=== PATIENT | female | born 1945 | race Caucasian/White ===

== ENCOUNTER 2023-05-20 10:13 | Outpatient (RCR) | payer MEDICARE, OTHER, SELFPAY | END 2023-05-20 23:59 | disposition home or self-care (01) | LOC: RPT 10:13 | PROVIDERS: ATTENDING PHYSICIAN Anesthesiology; FAMILY PHYSICIAN Internal Medicine | DX: M54.51 Vertebrogenic low back pain (principal); G89.4 Chronic pain syndrome; M79.12 Myalgia of auxiliary muscles, head and neck | CPT/HCPCS: 97110; 97112; 97140; 97163 ==

== ENCOUNTER 2023-06-17 10:14 | Outpatient (RCR) | payer MEDICARE, OTHER, SELFPAY | END 2023-06-17 23:59 | disposition home or self-care (01) | LOC: RPT 10:14 | PROVIDERS: ATTENDING PHYSICIAN Anesthesiology; FAMILY PHYSICIAN Internal Medicine | DX: M54.51 Vertebrogenic low back pain (principal); G89.4 Chronic pain syndrome; M79.12 Myalgia of auxiliary muscles, head and neck; Z73.6 Limitation of activities due to disability; Z85.79 Personal history of other malignant neoplasms of lymphoid, hematopoietic and related tissues | CPT/HCPCS: 97110; 97112; 97116; 97140; 97530 ==

== ENCOUNTER 2023-07-18 09:45 | Outpatient (RCR) | payer MEDICARE, OTHER, SELFPAY | END 2023-07-18 23:59 | disposition home or self-care (01) | LOC: RPT 09:45 | PROVIDERS: ATTENDING PHYSICIAN Anesthesiology; FAMILY PHYSICIAN Internal Medicine | DX: M54.51 Vertebrogenic low back pain (principal); M79.12 Myalgia of auxiliary muscles, head and neck; Z73.6 Limitation of activities due to disability; R26.2 Difficulty in walking, not elsewhere classified; M62.81 Muscle weakness (generalized); G89.4 Chronic pain syndrome | CPT/HCPCS: 97110; 97112; 97116; 97530 ==

== ENCOUNTER → 2023-07-28 06:29 | Day surgery (SDC) | payer MEDICARE, OTHER, SELFPAY | LOC: GI 06:29 | PROVIDERS: ATTENDING PHYSICIAN Internal Medicine Gastroenterology | DX: D12.2 Benign neoplasm of ascending colon (principal); K57.30 Diverticulosis of large intestine without perforation or abscess without bleeding; K64.8 Other hemorrhoids; K64.4 Residual hemorrhoidal skin tags; R19.5 Other fecal abnormalities; Q39.9 Congenital malformation of esophagus, unspecified; K44.9 Diaphragmatic hernia without obstruction or gangrene; K31.7 Polyp of stomach and duodenum; K31.89 Other diseases of stomach and duodenum; R12 Heartburn | CPT/HCPCS: 45385; 43239; 88305 ==

== ENCOUNTER 2023-08-05 09:45 | Outpatient (RCR) | payer MEDICARE, OTHER, SELFPAY | END 2023-08-05 23:59 | disposition home or self-care (01) | LOC: RPT 09:45 | PROVIDERS: ATTENDING PHYSICIAN Anesthesiology; FAMILY PHYSICIAN Internal Medicine | DX: M54.51 Vertebrogenic low back pain (principal); G89.4 Chronic pain syndrome; M79.12 Myalgia of auxiliary muscles, head and neck; Z73.6 Limitation of activities due to disability | CPT/HCPCS: 97010; 97110; 97530 ==

== ENCOUNTER → 2023-09-22 11:13 | Outpatient (REF) | payer MEDICARE, OTHER, SELFPAY ==
[2023-09-22 12:02] LABS: % Basophils 0.3 % (0-2); % Eosinophils 2.2 % (0-6); % Immature Granulocytes 0.3 % (0-0.5); % Lymphocytes 15.5 % (20.5-51.1); % Monocytes 10.6 % (1.7-9.3); % Neutrophils 71.1 % (42.2-75.2); Absolute Eosinophils 0.2 10^3/uL (0-0.7); Absolute Monocytes 0.7 10^3/uL (0.1-0.6); Absolute Neutrophils 4.8 10^3/uL (1.4-6.5); Hematocrit 37.3 % (37.0-47.0); Mean Corp Hgb Conc. 32.2 g/dL (33.0-37.0); Mean Corpuscular Hgb 30.5 pg (27.0-31.0); Mean Corpuscular Volume 94.9 fL (81.0-99.0); Mean Platelet Volume 9.9 fL (7.4-10.4); Nucleated Red Blood Cells % 0 %; Platelet Count 183 10^3/uL (130-400); Red Blood Cell Count 3.93 10^6/uL (4.20-5.40); Red Cell Dist. Width 17.4 % (11.5-14.5); White Blood Cell Count 6.7 10^3/uL (4.8-10.8)
[2023-09-22 12:55] LABS: ALT (SGPT) 16 U/L (0-35); AST (SGOT) 21 U/L (14-36); Albumin 4.3 g/dl (3.5-5.0); Alkaline Phosphatase 80 U/L (38-126); Blood Urea Nitrogen 12 mg/dl (7-17); Calcium 11.2 mg/dl (8.4-10.2); Carbon Dioxide 28 mmol/L (22-30); Chloride 102 mmol/L (98-107); Glucose 89 mg/dl (70-99); HDL Cholesterol 85 mg/dl; LDL Cholesterol, Calculated 78 mg/dl; Potassium 3.7 mmol/L (3.5-5.1); Sodium 140 mmol/L (135-145); Total Bilirubin 1.2 mg/dl (0.2-1.3); Total Cholesterol 201 mg/dl (50-199); Triglyceride 192 mg/dl (10-149); Very Low Density Lipoprotein 38 mg/dl (0-30); eGFR 57.66
[2023-09-22 13:44] LABS: Free T4 1.31 ng/dl (0.78-2.19)
== END ==
LOC: REG 11:13
PROVIDERS: ATTENDING PHYSICIAN Internal Medicine; FAMILY PHYSICIAN Internal Medicine; REFERRING PHYSICIAN Internal Medicine
DX: I10 Essential (primary) hypertension (principal); I48.0 Paroxysmal atrial fibrillation; C90.00 Multiple myeloma not having achieved remission; N18.31 Chronic kidney disease, stage 3a; I12.9 Hypertensive chronic kidney disease with stage 1 through stage 4 chronic kidney disease, or unspecified chronic kidney disease; D68.59 Other primary thrombophilia; E78.5 Hyperlipidemia, unspecified; E03.9 Hypothyroidism, unspecified; Z79.01 Long term (current) use of anticoagulants
CPT/HCPCS: 36415; 80053; 80061; 84439; 84443; 85025

== ENCOUNTER 2024-02-08 10:10 | Inpatient (IN) | payer MEDICARE, OTHER, SELFPAY ==
[2024-02-08] VITALS (14 sets, daily range): BP systolic 116–170; BP diastolic 69–118; BMI 36.7
[2024-02-08 07:03] LABS: Urine Albumin Negative (Neg - Trace); Urine Bilirubin Negative (Negative); Urine Character Clear (Clear); Urine Color Yellow; Urine Glucose Negative (Negative); Urine Ketone Negative (Negative); Urine Leukocyte Negative (Negative); Urine Nitrite Negative (Negative); Urine Occult Blood Negative (Negative); Urine Urobilinogen Negative (Neg - 1+)
[2024-02-08 07:10] LABS: % Basophils 0.5 % (0-2); % Eosinophils 0.5 % (0-6); % Immature Granulocytes 0.7 % (0-0.5); % Lymphocytes 8.3 % (20.5-51.1); % Monocytes 17.6 % (1.7-9.3); % Neutrophils 72.4 % (42.2-75.2); Absolute Lymphocytes 0.5 10^3/uL (1.2-3.4); Absolute Neutrophils 4.2 10^3/uL (1.4-6.5); Hematocrit 29.9 % (37.0-47.0); Hemoglobin 10.1 g/dL (12.0-16.0); Mean Corp Hgb Conc. 33.8 g/dL (33.0-37.0); Mean Corpuscular Hgb 31.4 pg (27.0-31.0); Mean Corpuscular Volume 92.9 fL (81.0-99.0); Mean Platelet Volume 11.2 fL (7.4-10.4); Nucleated Red Blood Cells % 0 %; Platelet Count 137 10^3/uL (130-400); Red Blood Cell Count 3.22 10^6/uL (4.20-5.40); Red Cell Dist. Width 17.1 % (11.5-14.5); White Blood Cell Count 5.8 10^3/uL (4.8-10.8)
[2024-02-08 07:15] LABS: ALT (SGPT) 27 U/L (0-35); AST (SGOT) 26 U/L (14-36); Albumin 3.5 g/dl (3.5-5.0); Alkaline Phosphatase 87 U/L (38-126); Blood Urea Nitrogen 26 mg/dl (7-17); Calcium 9.6 mg/dl (8.4-10.2); Carbon Dioxide 25 mmol/L (22-30); Chloride 101 mmol/L (98-107); Estimated Creatinine Clearance 37 ml/min; Glucose 102 mg/dl (70-99); Potassium 3.4 mmol/L (3.5-5.1); Sodium 139 mmol/L (135-145); Total Bilirubin 1.3 mg/dl (0.2-1.3); Total Protein 5.9 g/dl (6.3-8.2); eGFR 51.11
[2024-02-08] MEDS: NSS 1000 IV (07:22)
--- NOTE | 2024-02-08 07:42 | ED.GENMED ---
History of Present Illness
General
Chief Complaint: Weakness
Time Seen by Provider: 02/08/24 06:40
History of Present Illness
History of Present Illness:
78-year-old female with history of A-fib on Eliquis and diltiazem, hypertension, hyperlipidemia presenting to the emergency department for acute confusion and fall. Patient arrives with and daughter. Notes that patient had a fall yesterday
morning, they had difficulty her back in bed. Prior to arrival, patient was found on the ground in her bedroom, unclear how she got there. Patient is a very limited historian, and is disoriented. Family notes that this is not her typical
behavior. No reported recent fever or illness. They do note that she got injections in her back on 01/27, however has had no issues since. Reports history of chronic back pain, for which she is on palliative care. They note that patient had a
very similar presentation in August 2023 while they were vacationing in [facility]. Patient was admitted to the hospital with dehydration, went into A-fib. No additional history obtained at this time.
Past History
Past History
ED Past Medical History: Cancer, HTN and Hypercholesterolemia
ED Past Surgical History: Orthopedic
Social History
Tobacco: Non-smoker
Alcohol: Occasional
Drug: None
Personal:
Living: with family
Employment: Retired
Family History
Family History: Other
Phy Exam
Physical Exam
Physical Exam:
General: Well-appearing, no clinical signs of dehydration, nontoxic and in no acute distress
HEENT: protecting airway
Neck: appears supple
CV: Normal heart rate, regular rhythm
Resp: No accessory muscle use, no increased work of breathing, lungs clear to auscultation bilaterally
Abd: Soft and non-distended, no tenderness to palpation
Extremities: No deformities, no swelling, no erythema
Neuro: alert, tremulous, disoriented to place and time
: deferred
Rectal: deferred
Psych: Normal affect
Skin: Intact
Course
Orders/Labs/Results
Orders:
Orders
02/08/24 06:22
Electrocardiogram (*1) Urgent
Reason for Study: Fatigue / Weakness
EKG- Treatment ONCE
02/08/24 06:23
Complete Blood Count/With Diff Urgent
Comprehensive Metabolic Panel Urgent
02/08/24 06:41
UA Reflex to Culture [Urinalysis Reflex To Culture] Urgent
Date Specimen was Collected: 02/08/24
Time Specimen was Collected: 06:22
02/08/24 06:57
CT Head W/o Iv Contrast Urgent
Comment:
Reason For Exam: fall, unwitnessed on eliquis
0.9% Sodium Chloride 1000 ml [Nss] 1,000 ml IV BOLUS
02/08/24 07:41
Diltiazem HCl [Cardizem] 15 mg IV NOW STA
Abnormal Lab Results
02/08/24
06:23
RBC 3.22 L 10^6/uL
(4.20-5.40)
Hgb 10.1 L g/dL
(12.0-16.0)
Hct 29.9 L %
(37.0-47.0)
MCH 31.4 H pg
(27.0-31.0)
RDW 17.1 H %
(11.5-14.5)
MPV 11.2 H fL
(7.4-10.4)
Absolute Lymphs (auto) 0.5 L 10^3/uL
(1.2-3.4)
Absolute Monos (auto) 1.0 H 10^3/uL
(0.1-0.6)
Immature Gran % 0.7 H %
(0-0.5)
Lymphocytes % 8.3 L %
(20.5-51.1)
Monocytes % 17.6 H %
(1.7-9.3)
Potassium 3.4 L mmol/L
(3.5-5.1)
BUN 26 H mg/dl
(7-17)
Creatinine 1.1 H mg/dL
(0.6-1.0)
Glucose 102 H mg/dl
(70-99)
Total Protein 5.9 L g/dl
(6.3-8.2)
02/08/24 06:23
02/08/24 06:23
Vital Signs
Initial and Last Documented VS:
Initial Vital Signs
Temp Pulse Resp BP Pulse Ox
98.6 F 86 18 141/94 96
02/08/24 06:15 02/08/24 06:15 02/08/24 06:15 02/08/24 06:15 02/08/24 06:15
Last Documented Vital Signs
Temp Pulse Resp BP Pulse Ox
98.6 F 140 27 116/90 94
02/08/24 06:15 02/08/24 07:26 02/08/24 07:26 02/08/24 07:26 02/08/24 07:26
MDM/Problems Addressed
MDM/Problems Addressed:
78-year-old female with history of A-fib on Eliquis and multiple myeloma presenting for change in mental status and fall. Vital signs on arrival are normal.
On exam, patient is well-appearing, no acute distress, however does appear disoriented and confused. Family not immediately at the bedside on her arrival, however when they did arrive, notes this is a significant change from her baseline. She does
have some mild confusion at baseline, however not to the. They report very similar symptoms in August after concern of dehydration. Patient's lips are very dry, indicating possible dehydration component. Plan for laboratory analysis, urinalysis in
the setting of possible UTI. Will start patient on IV fluids. Given fall of unclear etiology, will obtain CT brain.
08:00 - Patient's labs are relatively unremarkable, urine without sign of infection. Patient is now in rapid A-fib. She is on diltiazem. Will administer IV diltiazem for rate control. CT without acute traumatic injury, however does note
increasing white matter disease from prior, reporting PML as a diagnostic consideration. Will continue to consider infectious pathology. She is currently afebrile, I do not feel she requires LP at this time. However, patient will require
admission given her acute confusion. Plan for admission
*EKG
Interpreted by ED Provider?: Yes
EKG Intrepretation Date: 02/08/24
EKG Intrepretation Time: 07:51
Interpretation: normal
Heart Rate: 84
Rate: normal
Rhythm: sinus
[place]: normal axis
Interval: normal interval
QRS Pattern: normal QRS
Ischemia: no ischemia
*Critical Care Note
Total Time (30-74mins, 75-104mins- exclusive of procedures): Not Applicable
ED Attending Note
-
Portions of this chart may have been created with voice recognition software.� Occasional wrong word or��sound alike� substitutions may have occurred due to the inherent limitations of voice recognition software.
Discharge Plan
Departure
Prescriptions:
No Action
rosuvastatin [Crestor] 10 MG tablet
5 mg PO DAILY
labetalol 200 MG tablet
200 mg PO BID
omeprazole 20 MG tablet,delayed release (DR/EC)
20 mg PO Daily
Eliquis 5 MG tablet
5 mg PO BID
loperamide 2 mg Capsule
4 mg PO Q8H PRN (Reason: diarrhea)
sulfamethoxazole-trimethoprim [Bactrim] 400-80 mg Tablet
1 tab PO DAILY
venlafaxine 25 mg Tablet
50 mg PO BID
diltiazem HCl 120 mg Tablet
120 mg PO DAILY
cholestyramine (with sugar) [Questran] 4 gram Powder
4 g PO BID
tizanidine 2 mg Capsule
2 mg PO BID PRN (Reason: .as directed)
pregabalin 50 mg Capsule
50 mg PO BID
lenalidomide [Revlimid] 5 mg Capsule
5 mg PO DAILY
Rx Instructions:
1 cap for 21 days, then off x 7 days
levothyroxine [Synthroid] 200 MCG tablet
100 mcg PO DAILY
Referrals:
Espinoza Kaplan I., DO [Family Provider] -
Interventions
Interventions:
*Risk Screen - Suicide Last Done: 02/08/24 07:27
*General Assessment Last Done: 02/08/24 06:15
*Neglect/Abuse Screening Last Done: 02/08/24 06:15
ED- Fall Risk Assessment Last Done: 02/08/24 06:15
*ED COVID-19 Vaccine History Last Done: 02/08/24 07:26
ED- Cardiac Assessment Last Done: 02/08/24 07:27
ED- Neurological Assessment Last Done: 02/08/24 07:27
ED- Pulmonary Assessment Last Done: 02/08/24 07:27
Discharge Date and Time
Print Language: NORWEGIAN
[2024-02-08] MEDS: CARDIZEM 15 MG IV (07:52)
--- NOTE | 2024-02-08 09:03 | HPS.HSE ---
Family Physician
-
Family Physician: Espinoza Kaplan
Chief Complaint
-
confusion
frequent falls
History of Present Illness
HPI: 78-year-old female with history of Multiple myeloma, A-fib on Eliquis and diltiazem, hypertension, hyperlipidemia; presented to the emergency department for confusion and recurrent fall.
Pt also fell yesterday. She was found on the floor by her daughter. Patient is currently confused, hence a limited historian. She is awake, conversant, oriented x1-2.
Per family, there has been no reported recent fever or illness. Pt has had a back injections on 01/27 for back pain without any issue.
Medical History
Past Medical History
Past Medical History: Reports Other
Additional Past Medical History:
Multiple myeloma (follows at [facility])
A-fib on Eliquis and diltiazem/labetalol
Hypertension
hyperlipidemia
Past Surgical History: Reports Other
Additional Past Surgical History:
spine surgery in the past
Social History
Tobacco: Non-smoker
Alcohol: None
Personal:
Living: With Family
Family History
Family History: Not pertinent
Allergies / Home Medications
Allergies reflects when Allergies were last updated in [facility].
Home Medications with original date entered in [facility]
Allergy/Medication List:
Allergies
Allergy/AdvReac Type Severity Reaction Status Date / Time
atorvastatin calcium Allergy Unknown Verified 02/08/24 06:14
[From Lipitor]
Home Medications
levothyroxine 200 mcg tablet (Synthroid) 100 mcg PO DAILY 08/05/13
rosuvastatin 10 mg tablet (Crestor) 5 mg PO DAILY 08/23/13
apixaban 5 mg tablet (Eliquis) 5 mg PO BID 02/12/18
labetalol 200 mg tablet 200 mg PO BID 02/12/18
omeprazole 20 mg tablet,delayed release 20 mg PO Daily 02/12/18
cholestyramine (with sugar) 4 gram oral powder (Questran) 4 g PO BID 02/08/24
diltiazem HCl 120 mg tablet 120 mg PO DAILY 02/08/24
lenalidomide 5 mg capsule (Revlimid) 5 mg PO DAILY 02/08/24
loperamide 2 mg capsule 4 mg PO Q8H PRN diarrhea 02/08/24
pregabalin 50 mg capsule 50 mg PO BID 02/08/24
sulfamethoxazole 400 mg-trimethoprim 80 mg tablet (Bactrim) 1 tab PO DAILY 02/08/24
tizanidine 2 mg capsule 2 mg PO BID PRN .as directed 02/08/24
venlafaxine 25 mg tablet 50 mg PO BID 02/08/24
Review of Systems
-
Unable to obtain full review of systems at this time due to: Acuity
Physical Exam
Vital Signs
Vital Signs
Temp Pulse Resp BP Pulse Ox
37.0 C 92 16 116/97 94
02/08/24 06:15 02/08/24 08:30 02/08/24 08:30 02/08/24 08:00 02/08/24 07:30
Physical Exam
General: Well Developed, Well Nourished, No Apparent Distress, Comfortable and Conversant
HEENT: NormoCephalic, Moist mucous membranes and Atraumatic
Respiratory: Clear and Non Labored Respirations; No Accessory Resp Muscle Use
Cardiac: S1/S2 and Regular Rhythm; No Murmur or Rub
GI: Soft, Non Tender, Non Distended and Normal Bowel Sounds; No Organomegaly
Rectal: Deferred by Provider
Musculoskeletal: No Clubbing and No Cyanosis
Skin: No Rash
Neuro: Awake and Alert
Psych: Calm and Confused; No Intact Judgment/Insight
Laboratory Results
-
02/08/24 06:23
02/08/24 06:23
Laboratory Results
Total Bilirubin 1.3 mg/dl (0.2-1.3) 02/08/24 06:23
AST 26 U/L (14-36) 02/08/24 06:23
ALT 27 U/L (0-35) 02/08/24 06:23
Alkaline Phosphatase 87 U/L (38-126) 02/08/24 06:23
Data Reviewed
-
CT Scan: Report Reviewed by me
Lab Data: Labs Reviewed by me
Impression/Plan
-
HPI: 78-year-old female with history of Multiple myeloma, A-fib on Eliquis and diltiazem, hypertension, hyperlipidemia; presented to the emergency department for confusion and recurrent fall.
Pt also fell yesterday. She was found on the floor by her daughter. Patient is currently confused, hence a limited historian. She is awake, conversant, oriented x1-2.
Per family, there has been no reported recent fever or illness. Pt has had a back injections on 01/27 for back pain without any issue.
Of note, family informed that a very similar episode happened in August 2023 when they were on a vacation in [facility]. Patient was admitted to the hospital at that time for dehydration, went into A-fib.
A/P:
# acute metabolic encephalopathy/confusion
# Frequent falls
CT head without acute intracranial hemorrhage or scalp soft tissue hematoma. Noted stable calvarial lesions consistent with MULTIPLE MYELOMA.
Check MRI brain with IV contrast underlying MM
UA clean
Holding SEWAGE TREATMENT PLANT OPERATOR tizanidine, Lyrica due to current confusion
Monitor MS and consider Neuro eval
PT OT eval for fall
# ?dehydration on admission
s/p 1 L NSS in ED
Sodium level and SCr stable on admission, cont to monitor
# Multiple myeloma
# Paroxysmal A-fib
Eliquis and diltiazem
monitor HR
# hypertension
# hyperlipidemia
DVT ppx: Lovenox SQ
FC
[2024-02-08 09:42] LABS: COVID-19 Antigen Negative (Negative)
[2024-02-08] MEDS: TYLENOL 650 MG PO (10:10)
[2024-02-08] MEDS: CARDIZEM 5 MG IV ×3 (10:50→21:11)
[2024-02-08 10:56] LABS: Hematocrit 27.5 % (37.0-47.0); Hemoglobin 9.4 g/dL (12.0-16.0); Mean Corp Hgb Conc. 34.2 g/dL (33.0-37.0); Mean Corpuscular Hgb 31.3 pg (27.0-31.0); Mean Corpuscular Volume 91.7 fL (81.0-99.0); Mean Platelet Volume 10.8 fL (7.4-10.4); Platelet Count 119 10^3/uL (130-400); Red Cell Dist. Width 17.2 % (11.5-14.5); White Blood Cell Count 5.9 10^3/uL (4.8-10.8)
[2024-02-08] MEDS: VANCOCIN 300 ML IV (11:02)
[2024-02-08] MEDS: VANCOCIN 300 MG IV (11:02)
--- NOTE | 2024-02-08 11:58 | PHA.VAN.IN ---
Assessment
- Assessment
Renal Function: Appears similar to baseline
Maximum Temperature: 101.1 02/08/24 11:46
Concomitant Antimicrobials: ceftriaxone, bactrim
AUC Dosing Plan
- Dosing Variables
Dosing Weight (kg): 80
Dosing CrCl (ml/min): 37
Vd coefficient (L/kg): 0.6
- Empiric Dosing
Initial / Loading Dose: 1500 mg ~1100 02/08/24
Maintenance Regimen: 750 mg q24h - to start 0600 02/08
Estimated AUC (mcg*h/mL): 453
Estimated Peak (mcg*h/mL): 27.4
Estimated Trough (mcg/ml): 12.2
Estimated Half Life (H): 19.7
- Monitoring
No levels ordered at this time: consider levels when pt reaches steady state
Pharmacokinetics Vancomycin I
- -
Patient Age: 78
Patient Sex: Female
Vancomycin Day #: 1
Indication: Other
Requesting Provider: Namrata
Height / Weight:
Height 4 ft 10 in
Actual Weight 79.7 kg
Pertinent Past Medical History: BMI 36.7 Multiple Myeloma,
- Vital Signs / Lab Results
Temp Pulse Resp BP Pulse Ox
101.1 F H 142 24 144/118 94
02/08/24 11:46 02/08/24 11:46 02/08/24 11:46 02/08/24 11:01 02/08/24 07:30
Lab Results - Hematology
02/08/24 02/08/24
06:23 10:44
WBC 5.8 5.9
Lab Results - Chemistry
02/08/24
06:23
BUN 26 H
Creatinine 1.1 H
Estimated Creat Clear 37
Albumin 3.5
Lab Results - Urine
02/08/24
06:41
Urine Nitrite (Reflex) Negative
Leukocyte Esterase Rfl Negative
[2024-02-08] MEDS: ROCEPHIN 1000 MG IV (12:50)
[2024-02-08] MEDS: STERILE WATER FOR INJECTION 10 ML IV (12:50)
[2024-02-08] MEDS: KCL 40 MEQ PO (13:59)
--- NOTE | 2024-02-08 20:00 | PTCARENOTE ---
Pt here with hx of afib and has been experiencing episodes during admission. Pt had HR ranging from 150-180 bpm. Pt had cardizem ordered prn q6h. PASTRY BAKER made aware that prn order was not working. Order obtained for Cardizem drip running @10. Pt
remained in 160s, PASTRY BAKER ordered Cardizem bolus IVP. Pt's HR remained relatively the same. PASTRY BAKER changed Cardizem drip to run @15 and put an order for another bolus. That bolus was not needed due to HR dropping into 90s. Continuing to monitor, call
mao in reach.
[2024-02-08] MEDS: CARDIZEM 125 IV (20:36)
[2024-02-08] MEDS: EFFEXOR 50 MG PO (20:49)
[2024-02-08] MEDS: ELIQUIS 5 MG PO (20:50)
[2024-02-08] MEDS: QUESTRAN 4 GRAM PO (20:50)
[2024-02-08] MEDS: TRANDATE PO (21:21)
[2024-02-09] VITALS (9 sets, daily range): BP systolic 84–163; BP diastolic 47–102; PULSE 79; O2SAT 96; BMI 35.9
--- NOTE | 2024-02-09 04:42 | PTCARENOTE ---
Pt continuously pulling off tele monitor, messing with IV tubing, undressing, and pulling brief to shreds. Pt is restless, forgetful, and confused. This RN reoriented and cleaned patient. FACILITY MAINTENANCE SUPERVISOR made aware and order for b/l mitts obtained. Order date
02/09/24 to start 04:50. Will continue to monitor.
[2024-02-09] MEDS: SYNTHROID 100 MCG PO (05:56)
[2024-02-09] MEDS: CARDIZEM 125 IV (05:56)
[2024-02-09] MEDS: VANCOCIN 150 IV (05:57)
[2024-02-09 06:13] LABS: Hematocrit 28.4 % (37.0-47.0); Hemoglobin 9.7 g/dL (12.0-16.0); Mean Corp Hgb Conc. 34.2 g/dL (33.0-37.0); Mean Corpuscular Hgb 31.4 pg (27.0-31.0); Mean Corpuscular Volume 91.9 fL (81.0-99.0); Mean Platelet Volume 10.5 fL (7.4-10.4); Platelet Count 129 10^3/uL (130-400); Red Blood Cell Count 3.09 10^6/uL (4.20-5.40); Red Cell Dist. Width 17.4 % (11.5-14.5); White Blood Cell Count 6.8 10^3/uL (4.8-10.8)
[2024-02-09 06:36] LABS: Blood Urea Nitrogen 20 mg/dl (7-17); Calcium 9.2 mg/dl (8.4-10.2); Carbon Dioxide 23 mmol/L (22-30); Chloride 103 mmol/L (98-107); Estimated Creatinine Clearance 58 ml/min; Glucose 101 mg/dl (70-99); Magnesium 1.2 mg/dl (1.6-2.3); Potassium 3.9 mmol/L (3.5-5.1); Sodium 137 mmol/L (135-145); eGFR > 60.00
[2024-02-09 07:26] LABS: Hepatitis C Antibody Negative (Negative)
[2024-02-09] MEDS: PROTONIX 40 MG PO (07:52)
[2024-02-09] MEDS: BACTRIM 400 MG/80 MG 1 TABLET PO (07:52)
[2024-02-09] MEDS: ELIQUIS 5 MG PO ×2 (07:52→22:10)
[2024-02-09] MEDS: QUESTRAN 4 GRAM PO ×2 (07:53→22:05)
[2024-02-09] MEDS: EFFEXOR 50 MG PO ×2 (07:53→22:05)
[2024-02-09] MEDS: CRESTOR 5 MG PO (07:56)
[2024-02-09] MEDS: MAGNESIUM SULFATE 100 IV (08:34)
--- NOTE | 2024-02-09 09:15 | VNURNOTE ---
Chart reviewed. Patient is current with [facility] home PT. Will continue to follow hospital course and DC plans.
--- NOTE | 2024-02-09 09:59 | PHA.VAN.FU ---
Vancomycin Assessment / Plan
- Assessment
Renal Function: SCR Decreasing (1.1-> 0.7)
WBC's are: WNL
In the past 24 hrs, patient has been: Afebrile (ceftriaxone, bactrim PO,)
- Dosing Plan
Adjust Regimen to: 1000 mg q24h - to start 0600 02/09 (SCr down to 0.6)
New Regimen Predicts: AUC (417), Peak (29.8), Trough (9)
- Monitoring Plan
No level(s) ordered at this time: consider level when pt reaches steady state
- Follow Up
Pharmacy will continue to follow.
Vancomycin Follow UP
- -
Patient Age: 78
Patient Sex: Female
Vancomycin Day #: 2
Indication: Other
Requesting Provider: Namrata
Height / Weight:
Height 4 ft 10 in
Actual Weight 77.791 kg
Pertinent Past Medical History: BMI 36.7 Multiple Myeloma,
- Vital Signs / Lab Results
Temp Pulse Resp BP Pulse Ox
98.1 F 142 16 163/102 97
02/09/24 08:00 02/09/24 08:00 02/09/24 08:00 02/09/24 08:00 02/09/24 08:00
Lab Results - Hematology
02/08/24 02/08/24 02/09/24
06:23 10:44 05:56
WBC 5.8 5.9 6.8
Lab Results - Chemistry
02/08/24 02/09/24
06:23 05:56
BUN 26 H 20 H
Creatinine 1.1 H 0.7
Estimated Creat Clear 37 58
Albumin 3.5
[2024-02-09] MEDS: CARDIZEM CD 120 MG PO (11:29)
[2024-02-09] MEDS: TRANDATE 200 MG PO ×2 (11:29→22:05)
[2024-02-09] MEDS: ROCEPHIN 1000 MG IV (11:36)
[2024-02-09] MEDS: STERILE WATER FOR INJECTION 10 ML IV (11:36)
--- NOTE | 2024-02-09 12:25 | W.PN.HOSP.TC ---
Today's Communication/Plan
-
see outlined plan
Assessment / Plan
Assessment / Plan
Assessment:
Acute TME with confusion
Frequent falls
- CT: No CT evidence for acute intracranial hemorrhage or scalp soft tissue hematoma. Large number of lytic calvarial lesions consistent with MULTIPLE MYELOMA which appears unchanged. SEVERE WHITE MATTER DISEASE in both cerebral hemispheres which
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 Small chronic infarct in the right
cerebellar hemisphere. Mild diffuse cerebral and cerebellar volume loss.
- MRI: No MRI evidence for acute infarct or intracranial hemorrhage. 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 Small chronic transcortical infarcts in the posterior and
medial right parietal lobe. Small chronic white matter infarcts in the subcortical right parietal lobe and periventricular left frontal lobe. 1.3 cm chronic ischemic infarct in the posterior right cerebellar hemisphere. Mild diffuse cerebral and
cerebellar volume loss. Mild multilevel cervical spinal cord compression and central canal stenosis secondary to multilevel disc-osteophyte complexes and facet joint arthrosis. Severe degenerative disease between the left lateral masses of C1 and
C2. Tiny multiple myeloma lesions throughout the calvarium.
- check B12, Folate, TSH/reflex T4
- infectious workup pending given fevers; continue Vanco/Ceftriaxone, day 1 pending results. Follow CXR. fevers could also be malignant
- recent lumbar spinal injection 01/24
- holding Tizanidine and Lyrica, Tramadol
- consider EEG
- PT/OT
Clinical dehydration
CECELIA
- continue IVF
- BMP improving
Hypokalemia
Hypomagnesemia
- replete prn
Hx of Multiple myeloma
- on Revlimid; held for now
- holding Bactrim prophylaxis
- followed by [facility]
Paroxysmal A-fib
- continue Eliquis
- s/p Cardizem drip; continue oral Cardizem and Labetalol
Essential HTN
- continue oral Cardizem and Labetalol
Hypothyroidism
- continue Levothyroxine
HLD - continue statin
DVT ppx: Lovenox
Code: Full
Anticipated Discharge: > 48 hours
Subjective/Interval History
-
Date of Service: February 09, 2024
Afebrile this AM
confused
went into rapid Afib overnight requiring Cardizem drip; now back in NSR
Objective Data
-
Labs:
Laboratory Results
02/09/24
05:56
WBC 6.8
Hgb 9.7 L
Hct 28.4 L
Plt Count 129 L
Sodium 137
Potassium 3.9
Chloride 103
Carbon Dioxide 23
BUN 20 H
Creatinine 0.7
Glucose 101 H
Calcium 9.2
Vital Signs:
Vital Signs
Temp Pulse Resp BP Pulse Ox
98.3 F 93 16 156/59 97
02/09/24 11:46 02/09/24 11:46 02/09/24 11:46 02/09/24 11:46 02/09/24 11:46
I&O
02/08/24 02/09/24 02/10/24
06:59 06:59 06:59
Intake Total 240 / 240
Balance 240 / 240
Physical Exam
-
General: No Apparent Distress
HEENT: Normocephalic
Respiratory: Negative Wheezes
Cardiac: Regular Rhythm and S1/S2
GI: Soft
Musculoskeletal: No Edema
Neuro: Awake
Hematologic / Lymphatic: No Lymphadenopathy
Psych: Calm and Confused
Data Reviewed
-
Total Time Spent with Patient (in minutes): 45
Labs: Labs Reviewed by me
--- NOTE | 2024-02-09 12:36 | PTOTSP ---
Speech Therapy Evaluation:
Patient demonstrates oropharyngeal swallow that is within functional limits. RN and patient both reported no difficulty with solids, liquids, or medications. No overt s/sx of aspiration observed with regular solids or thin liquids via straw.
Recommend:
1. Continue IDDSI Level 7 (regular) and thin liquids
2. Medications as tolerated
3. General aspiration precautions
4. No further ST indicated. COIL WINDING SUPERVISOR to sign off.
--- NOTE | 2024-02-09 16:19 | CON.ID ---
Consultation
-
Date/Time Consultation Requested: 02/09/2024 1253
Date/Time Consultation Performed: 02/09/2024 1530
Requesting Provider: Dr. Saldana
Performing Provider: Dr. Aviles
Reason for Consultation: Change in mental status; fever
Chief Complaint / Past History
History of Present Illness
Melanie Cadet is a 78-year-old female with a significant past medical history of multiple myeloma (maintained on Revlimid) being evaluated at the request of Dr. Saldana in regards to encephalopathy. History is obtained from chart review, along with
patient interview, although the patient was not found to be able to provide much information.
According to reviewed records, the patient presented to the hospital yesterday in the morning following and noted fall. According to the chart note the patient had fallen the prior morning in the bedroom and family had a difficult time getting her
back into bed. According to the family, there was no reported recent fevers or illness, but she was found to be febrile when checked by rectal thermometer in the ER. The patient has a history of chronic back pain and evidently received a injection
on 01/27. The patient reports that this was performed at [facility]. The family reported a very similar presentation of confusion in August 2023 while they were vacationing in [place], [place]. At that time she was admitted to the hospital with
dehydration.
Workup in the emergency room did not reveal leukocytosis. CT imaging of the head, though was significant for severe white matter disease, potentially white matter leukoaraiosis, but PML was on the differential. A brain MRI was performed earlier
today which again showed severe white matter disease, but not felt to be consistent with PML.
At the present time, the patient denies any significant pain. She denies any headache. She denies any shortness of breath. She denies any belly pain. She denies any dysuria.
Past History
Additional Past Medical History:
Multiple myeloma
A-fib (maintained on Eliquis)
HTN
Dyslipidemia
Allergy History:
atorvastatin calcium [From Lipitor] Allergy (Verified 02/08/24 06:14)
Unknown
Current Antibiotics:
Ceftriaxone 1 g IV every 24 hours
Vancomycin
Bactrim prophylaxis
Social History
Tobacco: Non-Smoker
Alcohol: Occasional
Drug: None
Personal:
Living: With Family
Employment: Retired
Family History
Family History: Not Pertinent
Review of Systems
Vital Signs
Temp Pulse Resp BP Pulse Ox
99.1 F 77 16 121/55 96
02/09/24 15:05 02/09/24 15:05 02/09/24 15:05 02/09/24 15:05 02/09/24 15:05
Physical Exam
Physical Exam
Constitutional: No Acute Distress and Non-toxic
Eyes: No Conjunctival Hemorrhage and Sclera Anicteric
Oral: No Thrush and No Ulcers
Cardiovascular: Irregular Rate and S1/S2; Negative S3/S4
Pulmonary: Clear; Negative Wheezes or Rales
Gastrointestinal: Soft, Non Tender, Non Distended, Normal Bowel Sounds and No Rebound
Genito-Urinary: Negative CVA Tenderness
Extremities: Negative Edema, Cyanosis, Erythema, Splinter Hemorrhage or Venous Insufficiency
Skin: Warm and Dry; Negative Rash or Jaundice
Neurological: Awake and Alert; Negative Meningeal Signs (No neck rigidity. Neck supple with full range of motion.)
Psychological: Calm, Confused and Other (occasional 'word salad' and some word finding inability noted.)
.
Lab / Diagnostic Study Results
02/09/24 05:56
02/09/24 05:56
Abs Immat Gran (auto) 0.0 10^3/uL (0-0.05) 02/08/24 06:23
Absolute Neuts (auto) 4.2 10^3/uL (1.4-6.5) 02/08/24 06:23
Absolute Lymphs (auto) 0.5 10^3/uL (1.2-3.4) L 02/08/24 06:23
Absolute Monos (auto) 1.0 10^3/uL (0.1-0.6) H 02/08/24 06:23
Absolute Basos (auto) 0.0 10^3/uL (0-0.2) 02/08/24 06:23
Immature Gran % 0.7 % (0-0.5) H 02/08/24 06:23
Neutrophils % 72.4 % (42.2-75.2) 02/08/24 06:23
Lymphocytes % 8.3 % (20.5-51.1) L 02/08/24 06:23
Monocytes % 17.6 % (1.7-9.3) H 02/08/24 06:23
Eosinophils % 0.5 % (0-6) 02/08/24 06:23
Basophils % 0.5 % (0-2) 02/08/24 06:23
Microbiology Results
Micro:
02/08/24 10:44 Blood Culture - Preliminary
Blood/Venous No Growth in 24 hours- Final report to follow
Imaging:
02/09/2024 MRI brain: No MRI evidence for acute infarct or intracranial hemorrhage. 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 Case discussed with Radiology, and
findings not felt to be consistent with PML. Other findings included a small chronic transcortical infarcts in the posterior medial right parietal lobes. Also noted mild diffuse cerebral and cerebellar volume loss. Tiny multiple myeloma lesions
throughout the calvarium noted. Please see full dictation for additional detail.
02/09/2024 CXR (2 view): No active cardiopulmonary disease noted.
02/08/2024 CT head without contrast: No CT evidence for acute intracranial hemorrhage. Large number of lytic calvarial lesions noted. Severe white matter disease in both cerebral hemispheres, increased from 02/12/2018, and felt to be most likely
severe white matter leukoaraiosis, although PML and alternative diagnostic possibility. Please see full dictation for additional detail.
Assessment / Plan
Acute encephalopathy of unclear etiology
Recent falls
Multiple myeloma; on Revlimid
A-fib (maintained on Eliquis)
HTN
Dyslipidemia
Recommendations:
Case discussed with Hospitalist
Agree with proceeding with LP. Will await routine studies (glucose, protein, cell count and differential, Gram stain, bacterial culture)
Continue with current antibiotics for the present, although somewhat doubt a bacterial etiology here.
Await PCR meningitis panel on CSF to guide decision regarding initiation of acyclovir.
[2024-02-09 16:33] LABS: INR 1.52; PT 18.2 Sec (11.4-14.6)
[2024-02-09] MEDS: MORPHINE SULFATE 1 MG IV (18:40)
[2024-02-09] MEDS: CARDIZEM 5 MG IV (22:11)
[2024-02-09] MEDS: MORPHINE SULFATE IV (22:19)
[2024-02-10] VITALS (11 sets, daily range): BP systolic 90–145; BP diastolic 48–88; PULSE 69; O2SAT 96
[2024-02-10] MEDS: MELATONIN 5 MG PO (01:32)
[2024-02-10] MEDS: SYNTHROID 100 MCG PO (05:17)
[2024-02-10] MEDS: VANCOCIN 200 IV (05:17)
[2024-02-10 06:32] LABS: % Basophils 0.3 % (0-2); % Eosinophils 0.5 % (0-6); % Immature Granulocytes 0.8 % (0-0.5); % Lymphocytes 8.1 % (20.5-51.1); % Monocytes 16.3 % (1.7-9.3); Absolute Immature Granulocytes 0.1 10^3/uL (0-0.05); Absolute Lymphocytes 0.5 10^3/uL (1.2-3.4); Absolute Neutrophils 4.5 10^3/uL (1.4-6.5); Hemoglobin 8.8 g/dL (12.0-16.0); Mean Corp Hgb Conc. 33.8 g/dL (33.0-37.0); Mean Corpuscular Hgb 31.3 pg (27.0-31.0); Mean Corpuscular Volume 92.5 fL (81.0-99.0); Mean Platelet Volume 11.1 fL (7.4-10.4); Nucleated Red Blood Cells % 0 %; Platelet Count 117 10^3/uL (130-400); Red Blood Cell Count 2.81 10^6/uL (4.20-5.40); Red Cell Dist. Width 17.6 % (11.5-14.5); White Blood Cell Count 6.1 10^3/uL (4.8-10.8)
[2024-02-10 06:56] LABS: ALT (SGPT) 21 U/L (0-35); AST (SGOT) 20 U/L (14-36); Albumin 2.9 g/dl (3.5-5.0); Alkaline Phosphatase 82 U/L (38-126); Blood Urea Nitrogen 20 mg/dl (7-17); Carbon Dioxide 24 mmol/L (22-30); Chloride 104 mmol/L (98-107); Estimated Creatinine Clearance 50 ml/min; Glucose 137 mg/dl (70-99); Magnesium 1.9 mg/dl (1.6-2.3); Potassium 3.6 mmol/L (3.5-5.1); Sodium 137 mmol/L (135-145); Total Bilirubin 1.3 mg/dl (0.2-1.3); Total Protein 5.3 g/dl (6.3-8.2); eGFR > 60.00
[2024-02-10 07:24] LABS: TSH Reflex To Free T4 3.18 uIU/ml (0.47-4.68)
[2024-02-10 08:00] LABS: Folate 10.9 ng/ml (2.76-20); Vitamin B12 < 159 pg/ml (239-931)
[2024-02-10] MEDS: TRANDATE 200 MG PO ×2 (08:39→19:40)
[2024-02-10] MEDS: EFFEXOR 50 MG PO ×2 (08:39→19:39)
[2024-02-10] MEDS: CRESTOR 5 MG PO (08:39)
[2024-02-10] MEDS: PROTONIX 40 MG PO (08:39)
[2024-02-10] MEDS: CARDIZEM CD 120 MG PO (08:40)
[2024-02-10] MEDS: BACTRIM 400 MG/80 MG 1 TABLET PO (08:40)
[2024-02-10] MEDS: ELIQUIS 5 MG PO ×2 (08:40→19:39)
[2024-02-10] MEDS: QUESTRAN 4 GRAM PO ×2 (08:40→19:39)
[2024-02-10] MEDS: CARDIZEM IV (09:24)
--- NOTE | 2024-02-10 09:41 | PHA.VAN.FU ---
Vancomycin Assessment / Plan
- Assessment
Renal Function: Stable
WBC's are: WNL
In the past 24 hrs, patient has been: Afebrile
Concomitant Antimicrobials: ceftriaxone
- Dosing Plan
Continue: Vanc 1000mg Q24H
- Monitoring Plan
No level(s) ordered at this time: consider levels in next few days
- Follow Up
Pharmacy will continue to follow.
Vancomycin Follow UP
- -
Patient Age: 78
Patient Sex: Female
Vancomycin Day #: 3
Indication: Other
Requesting Provider: Namrata Aviles
Pertinent Antimicrobial Allergies:
No pertinent antibiotic allergies
Height / Weight:
Height 4 ft 10 in
Actual Weight 77.791 kg
Pertinent Past Medical History: BMI ~36, Multiple Myeloma
- Vital Signs / Lab Results
Temp Pulse Resp BP Pulse Ox
98.4 F 76 20 138/63 97
02/10/24 07:21 02/10/24 07:21 02/10/24 07:21 02/10/24 07:21 02/10/24 07:21
Lab Results - Hematology
02/08/24 02/08/24 02/09/24
06:23 10:44 05:56
WBC 5.8 5.9 6.8
02/10/24
06:06
WBC 6.1
Lab Results - Chemistry
02/08/24 02/09/24 02/10/24
06:23 05:56 06:06
BUN 26 H 20 H 20 H
Creatinine 1.1 H 0.7 0.8
Estimated Creat Clear 37 58 50
Albumin 3.5 2.9 L
Microbiology Results
02/08/24 10:44 Blood Culture - Preliminary
Blood/Venous No Growth in 24 hours- Final report to follow
--- NOTE | 2024-02-10 10:30 | W.PN.HOSP.TC ---
Today's Communication/Plan
-
re-attempt LP with sedation today. d/w IR
continue IV abx, follow ID recs
replete Vitamin B12 via IM
PT/OT
Assessment / Plan
Assessment / Plan
Assessment:
Acute TME with confusion
Frequent falls
- CT: No CT evidence for acute intracranial hemorrhage or scalp soft tissue hematoma. Large number of lytic calvarial lesions consistent with MULTIPLE MYELOMA which appears unchanged. SEVERE WHITE MATTER DISEASE in both cerebral hemispheres which
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 Small chronic infarct in the right
cerebellar hemisphere. Mild diffuse cerebral and cerebellar volume loss.
- MRI: No MRI evidence for acute infarct or intracranial hemorrhage. 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 Small chronic transcortical infarcts in the posterior and
medial right parietal lobe. Small chronic white matter infarcts in the subcortical right parietal lobe and periventricular left frontal lobe. 1.3 cm chronic ischemic infarct in the posterior right cerebellar hemisphere. Mild diffuse cerebral and
cerebellar volume loss. Mild multilevel cervical spinal cord compression and central canal stenosis secondary to multilevel disc-osteophyte complexes and facet joint arthrosis. Severe degenerative disease between the left lateral masses of C1 and
C2. Tiny multiple myeloma lesions throughout the calvarium.
- TSH normal
- Folate normal
- Hypovitaminosis B12; replete with intra-muscularly daily
- infectious workup pending given fevers; continue Vanco/Ceftriaxone, day 2 pending results. Follow CXR. fevers could also be malignant
- recent lumbar spinal injection 01/24 noted
- Lumbar puncture ordered; IR to re-attempt today with sedation.
- holding Tizanidine and Lyrica, Tramadol
- consider EEG
- PT/OT - will need SNF
Clinical dehydration
CECELIA
- continue IVF
- BMP improving
Hypokalemia
Hypomagnesemia
- replete prn
Hx of Multiple myeloma
- on Revlimid; held for now
- holding Bactrim prophylaxis
- followed by [facility]
Paroxysmal A-fib
- continue Eliquis
- s/p Cardizem drip; continue oral Cardizem and Labetalol
Essential HTN
- continue oral Cardizem and Labetalol
Hypothyroidism
- continue Levothyroxine
HLD - continue statin
DVT ppx: Lovenox
Code: Full
Anticipated Discharge: > 48 hours
Subjective/Interval History
-
Date of Service: February 10, 2024
remains impulsive, agitation
Objective Data
-
Labs:
Laboratory Results
02/10/24
06:06
WBC 6.1
Hgb 8.8 L
Hct 26.0 L
Plt Count 117 L
Sodium 137
Potassium 3.6
Chloride 104
Carbon Dioxide 24
BUN 20 H
Creatinine 0.8
Glucose 137 H
Calcium 8.0 L
Total Bilirubin 1.3
AST 20
ALT 21
Alkaline Phosphatase 82
Vital Signs:
Vital Signs
Temp Pulse Resp BP Pulse Ox
98.4 F 76 20 138/63 97
02/10/24 07:21 02/10/24 07:21 02/10/24 07:21 02/10/24 07:21 02/10/24 07:21
I&O
02/09/24 02/10/24 02/11/24
06:59 06:59 06:59
Intake Total 240 / 240 120 / 120
Balance 240 / 240 120 / 120
Physical Exam
-
General: No Apparent Distress
HEENT: Normocephalic and Atraumatic
Respiratory: Negative Wheezes or Rales
Cardiac: Regular Rhythm and S1/S2
GI: Soft
Genito-urinary: No Costovertebral Tender
Musculoskeletal: No Edema
Neuro: Awake and Alert
Psych: Calm
Data Reviewed
-
Total Time Spent with Patient (in minutes): 45
Labs: Labs Reviewed by me
[2024-02-10] MEDS: ROCEPHIN 1000 MG IV (11:21)
[2024-02-10] MEDS: CYANOCOBALAMIN 1000 MCG IM (11:22)
[2024-02-10] MEDS: STERILE WATER FOR INJECTION 10 ML IV (11:23)
[2024-02-10] MEDS: TYLENOL 650 MG PO (12:30)
[2024-02-10] MEDS: NSS 500 IV ×2 (12:46→15:48)
--- NOTE | 2024-02-10 16:16 | W.PN.ID1 ---
Date of Service
Date of Service: February 10, 2024
Today's Communication
Discontinue antibiotics and observe.
Assessment / Plan
Acute encephalopathy of unclear etiology
Recent falls
Multiple myeloma; on Revlimid
A-fib (maintained on Eliquis)
HTN
Dyslipidemia
Recommendations:
Attempted LP today was unsuccessful. Discussed with IR, and for reattempt tomorrow.
Overall, patient appears brighter and more conversant today.
Will await routine LP studies (glucose, protein, cell count and differential, Gram stain, bacterial culture)
Doubt a bacterial etiology. Will D/C further abx for now. No temporal lobe enhancement on MRI. No need to initiate acyclovir at present.
����������������������������������������������������������
Chief Complaint
-: Other (Encephalopathy)
Subjective / Review of Systems
Patient seen and examined. Overall reports feeling well and without specific complaints.
Review of Systems: No Fever, No Chills and No Headache
Vital Signs / Physical Exam
Vital Signs
Vital Signs
Temp Pulse Resp BP Pulse Ox
98.0 F 76 18 96/56 97
02/10/24 15:00 02/10/24 15:00 02/10/24 15:00 02/10/24 15:00 02/10/24 15:00
Physical Exam
Constitutional: No Acute Distress, Comfortable and Non-toxic
Eyes: Sclera Anicteric
Cardiovascular: S1/S2; Negative S3/S4
Pulmonary: Non Labored
Gastrointestinal: Non Distended
Neurological: Awake, Alert (Conversant) and Other (Some word finding inability persist.); Negative Meningeal Signs
Psychological: Confused
Objective Data
Lab Data
Lab Results
02/10/24 06:06
02/10/24 06:06
PT 18.2 Sec (11.4-14.6) H 02/09/24 16:16
INR 1.52 02/09/24 16:16
Estimated Creat Clear 50 ml/min 02/10/24 06:06
Total Bilirubin 1.3 mg/dl (0.2-1.3) 02/10/24 06:06
AST 20 U/L (14-36) 02/10/24 06:06
ALT 21 U/L (0-35) 02/10/24 06:06
Alkaline Phosphatase 82 U/L (38-126) 02/10/24 06:06
Most recent labs reviewed.
Micro Results:
02/08/24 10:44 Blood Culture - Preliminary
Blood/Venous No Growth in 48 hours- Final report to follow
Imaging:
02/09/2024 MRI brain: No MRI evidence for acute infarct or intracranial hemorrhage. 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 Case discussed with Radiology, and
findings not felt to be consistent with PML. Other findings included a small chronic transcortical infarcts in the posterior medial right parietal lobes. Also noted mild diffuse cerebral and cerebellar volume loss. Tiny multiple myeloma lesions
throughout the calvarium noted. Please see full dictation for additional detail.
02/09/2024 CXR (2 view): No active cardiopulmonary disease noted.
02/08/2024 CT head without contrast: No CT evidence for acute intracranial hemorrhage. Large number of lytic calvarial lesions noted. Severe white matter disease in both cerebral hemispheres, increased from 02/12/2018, and felt to be most likely
severe white matter leukoaraiosis, although PML and alternative diagnostic possibility. Please see full dictation for additional detail.
Care Review
Plan reviewed with: Physician (Hospitalist)
--- NOTE | 2024-02-10 16:46 | CM ---
Reviewed chart, called patient's daughter to obtain information for assessment. Patient's daughter stated that patient lives with her spouse in a two story home with one step to enter. She described patient as independent with ADLs, personal care,
bathing and dressing. She uses a walker and a cane to assist with ambulation. She has a stair glide. Patient was driving prior and was able to get to her appointments and do her own shopping.
Patient is current with [facility].
She has been to SNF in the past at [facility]. If patient needs SNF she would like for referrals to be sent to [facility], [facility] and facilities all local to . Will send referrals.
Patient has a prescription plan and uses, [facility] in [place].
Patient's PCP, is Dr. Chang.
Plan: Case management will continue to follow and assist with discharge planning. SNF vrs back home with [facility].
[2024-02-10] MEDS: CARDIZEM 5 MG IV (19:41)
--- NOTE | 2024-02-10 23:33 | PTCARENOTE ---
RN received patient with an elevated HR of 120s-130s she was in Afib, RN gave PRN cardizem and pt's hr decreased to the 70s. Cardizem effective. GREASE MAKER notified regarding HR, GREASE MAKER present on floor.
[2024-02-11] VITALS (14 sets, daily range): BP systolic 119–151; BP diastolic 66–94; BMI 35.5
[2024-02-11] MEDS: MORPHINE SULFATE 1 MG IV ×2 (04:10→20:52)
[2024-02-11] MEDS: CARDIZEM 5 MG IV ×2 (04:51→09:43)
[2024-02-11] MEDS: NSS (PRESERVATIVE FREE) 0.5 ML IV (06:34)
[2024-02-11] MEDS: ATIVAN 2 MG IV ×2 (06:34→13:08)
[2024-02-11] MEDS: SYNTHROID 100 MCG PO (06:34)
[2024-02-11 06:36] LABS: % Basophils 0.4 % (0-2); % Eosinophils 1.6 % (0-6); % Immature Granulocytes 0.7 % (0-0.5); % Lymphocytes 8.4 % (20.5-51.1); % Monocytes 17.4 % (1.7-9.3); % Neutrophils 71.5 % (42.2-75.2); Absolute Eosinophils 0.1 10^3/uL (0-0.7); Absolute Lymphocytes 0.5 10^3/uL (1.2-3.4); Hematocrit 26.7 % (37.0-47.0); Mean Corp Hgb Conc. 33.7 g/dL (33.0-37.0); Mean Corpuscular Hgb 30.5 pg (27.0-31.0); Mean Corpuscular Volume 90.5 fL (81.0-99.0); Mean Platelet Volume 11.1 fL (7.4-10.4); Nucleated Red Blood Cells % 0 %; Platelet Count 117 10^3/uL (130-400); Red Blood Cell Count 2.95 10^6/uL (4.20-5.40); Red Cell Dist. Width 17.5 % (11.5-14.5); White Blood Cell Count 5.6 10^3/uL (4.8-10.8)
[2024-02-11 06:42] LABS: ALT (SGPT) 20 U/L (0-35); AST (SGOT) 19 U/L (14-36); Albumin 2.9 g/dl (3.5-5.0); Alkaline Phosphatase 110 U/L (38-126); Blood Urea Nitrogen 18 mg/dl (7-17); Calcium 7.8 mg/dl (8.4-10.2); Carbon Dioxide 21 mmol/L (22-30); Chloride 106 mmol/L (98-107); Estimated Creatinine Clearance 57 ml/min; Glucose 98 mg/dl (70-99); Potassium 3.6 mmol/L (3.5-5.1); Sodium 140 mmol/L (135-145); Total Bilirubin 1.4 mg/dl (0.2-1.3); Total Protein 5.4 g/dl (6.3-8.2); eGFR > 60.00
[2024-02-11] MEDS: CRESTOR 5 MG PO (08:15)
[2024-02-11] MEDS: EFFEXOR 50 MG PO ×2 (08:15→20:52)
[2024-02-11] MEDS: CARDIZEM CD 120 MG PO (08:15)
[2024-02-11] MEDS: QUESTRAN 4 GRAM PO ×2 (08:16→20:53)
[2024-02-11] MEDS: PROTONIX 40 MG PO (08:16)
[2024-02-11] MEDS: ELIQUIS 5 MG PO ×2 (08:16→20:52)
[2024-02-11] MEDS: TRANDATE PO ×2 (08:17→15:49)
[2024-02-11] MEDS: BACTRIM 400 MG/80 MG 1 TABLET PO (08:20)
[2024-02-11] MEDS: CYANOCOBALAMIN 1000 MCG IM (08:21)
--- NOTE | 2024-02-11 09:22 | W.PN.HOSP.TC ---
Today's Communication/Plan
-
re-attempt LP Today with sedation
rate control with PO and IV Cardizem
Assessment / Plan
Assessment / Plan
Assessment:
Acute TME with confusion
Frequent falls
- CT: No CT evidence for acute intracranial hemorrhage or scalp soft tissue hematoma. Large number of lytic calvarial lesions consistent with MULTIPLE MYELOMA which appears unchanged. SEVERE WHITE MATTER DISEASE in both cerebral hemispheres which
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 Small chronic infarct in the right
cerebellar hemisphere. Mild diffuse cerebral and cerebellar volume loss.
- MRI: No MRI evidence for acute infarct or intracranial hemorrhage. 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 Small chronic transcortical infarcts in the posterior and
medial right parietal lobe. Small chronic white matter infarcts in the subcortical right parietal lobe and periventricular left frontal lobe. 1.3 cm chronic ischemic infarct in the posterior right cerebellar hemisphere. Mild diffuse cerebral and
cerebellar volume loss. Mild multilevel cervical spinal cord compression and central canal stenosis secondary to multilevel disc-osteophyte complexes and facet joint arthrosis. Severe degenerative disease between the left lateral masses of C1 and
C2. Tiny multiple myeloma lesions throughout the calvarium.
- TSH normal
- Folate normal
- Hypovitaminosis B12; replete with intra-muscularly daily
- recent lumbar spinal injection 01/24 noted, with fevers, could be concern for meningitis.
- routine infectious workup negative. Now off Abx per ID. LP remains pending, re-attempt today. Fevers could also be malignant
- holding Tizanidine and Lyrica, Tramadol
- consider EEG
- PT/OT - will need SNF
Clinical dehydration
CECELIA
- continue IVF
- BMP improving
Hypokalemia
Hypomagnesemia
- replete prn
Hx of Multiple myeloma
- on Revlimid; held for now
- holding Bactrim prophylaxis
- followed by [facility]
Paroxysmal A-fib
- continue Eliquis
- s/p Cardizem drip; continue oral Cardizem and Labetalol. PRN Cardizem pushes
Essential HTN
- continue oral Cardizem and Labetalol
Hypothyroidism
- continue Levothyroxine
HLD - continue statin
DVT ppx: Lovenox
Code: Full
Anticipated Discharge: > 48 hours
Subjective/Interval History
-
Date of Service: February 11, 2024
LP re-attempt planned today
Objective Data
-
Labs:
Laboratory Results
02/11/24
06:01
WBC 5.6
Hgb 9.0 L
Hct 26.7 L
Plt Count 117 L
Sodium 140
Potassium 3.6
Chloride 106
Carbon Dioxide 21 L
BUN 18 H
Creatinine 0.7
Glucose 98
Calcium 7.8 L
Total Bilirubin 1.4 H
AST 19
ALT 20
Alkaline Phosphatase 110
Vital Signs:
Vital Signs
Temp Pulse Resp BP Pulse Ox
98.3 F 145 18 148/76 95
02/11/24 07:30 02/11/24 08:15 02/11/24 07:30 02/11/24 08:15 02/11/24 07:30
I&O
02/10/24 02/11/24 02/12/24
06:59 06:59 06:59
Intake Total 120 / 120 360 / 360
Output Total 150 / 150
Balance 120 / 120 210 / 210
Physical Exam
-
General: No Apparent Distress
HEENT: Normocephalic and Atraumatic
Respiratory: Negative Wheezes
Cardiac: Regular Rhythm and S1/S2
GI: Soft and Nontender
Genito-urinary: No Costovertebral Tender
Musculoskeletal: No Edema
Neuro: Awake and Alert
Hematologic / Lymphatic: No Lymphadenopathy
Psych: Confused
Data Reviewed
-
Total Time Spent with Patient (in minutes): 41
Labs: Labs Reviewed by me
[2024-02-11] MEDS: TYLENOL 650 MG PO (09:39)
[2024-02-11] MEDS: CARDIZEM 125 IV (11:28)
[2024-02-11] MEDS: NSS (PRESERVATIVE FREE) 1 ML IV (13:09)
--- NOTE | 2024-02-11 14:43 | W.PN.UPDATE ---
Update Note
Progress Note Update
Second attempt at LP, also unsuccessful. Patient was writhing around and unable to stay still enough for safe LP, despite restraint placement.
[2024-02-11] MEDS: TRANDATE 200 MG PO ×2 (15:41→20:52)
--- NOTE | 2024-02-11 19:19 | PTCARENOTE ---
Instructed to hold AM meds due to LP procedure that was to be done first thing in the AM. Pt HR began fluctuating from 120-150s. BP 148/76. IV cardiezem and AM meds given. HR and BP remained unchanged. Ordered to start cardizem drip at 5ml/hr. HR
70s-80s on the monitor, so pt taken for LP procedure. During procedure HR increased to 130s-150s. Pt returned to unit and dose changed to 10ml/hr. Continuing to monitor HR and BP. HR now 82 on the monitor. BP 131/94. Oncoming nurse notified.
[2024-02-12] MEDS: CARDIZEM 125 IV (00:41)
[2024-02-12] MEDS: TYLENOL 650 MG PO (04:36)
[2024-02-12] MEDS: MORPHINE SULFATE 1 MG IV ×3 (04:37→23:29)
[2024-02-12] MEDS: SYNTHROID 100 MCG PO (05:42)
[2024-02-12 06:44] LABS: % Basophils 0.7 % (0-2); % Eosinophils 2.4 % (0-6); % Immature Granulocytes 0.5 % (0-0.5); % Lymphocytes 10.9 % (20.5-51.1); % Monocytes 18.1 % (1.7-9.3); % Neutrophils 67.4 % (42.2-75.2); Absolute Eosinophils 0.1 10^3/uL (0-0.7); Absolute Lymphocytes 0.5 10^3/uL (1.2-3.4); Absolute Monocytes 0.8 10^3/uL (0.1-0.6); Absolute Neutrophils 2.8 10^3/uL (1.4-6.5); Hematocrit 25.6 % (37.0-47.0); Hemoglobin 8.6 g/dL (12.0-16.0); Mean Corp Hgb Conc. 33.6 g/dL (33.0-37.0); Mean Corpuscular Hgb 31.2 pg (27.0-31.0); Mean Corpuscular Volume 92.8 fL (81.0-99.0); Nucleated Red Blood Cells % 0 %; Platelet Count 128 10^3/uL (130-400); Red Blood Cell Count 2.76 10^6/uL (4.20-5.40); Red Cell Dist. Width 17.4 % (11.5-14.5); White Blood Cell Count 4.2 10^3/uL (4.8-10.8)
[2024-02-12 07:14] LABS: ALT (SGPT) 22 U/L (0-35); AST (SGOT) 23 U/L (14-36); Albumin 2.7 g/dl (3.5-5.0); Alkaline Phosphatase 160 U/L (38-126); Blood Urea Nitrogen 20 mg/dl (7-17); Calcium 7.7 mg/dl (8.4-10.2); Carbon Dioxide 22 mmol/L (22-30); Chloride 108 mmol/L (98-107); Estimated Creatinine Clearance 57 ml/min; Glucose 99 mg/dl (70-99); Potassium 3.5 mmol/L (3.5-5.1); Sodium 138 mmol/L (135-145); Total Bilirubin 1.5 mg/dl (0.2-1.3); eGFR > 60.00
[2024-02-12 07:38] VITALS: BP 140/67
--- NOTE | 2024-02-12 09:00 | CON.NEURO4 ---
Addendum entered and electronically signed by Dipti Han DO 02/12/24 18:34:
I have personally examined the patient. I agree with the ASSISTANT PROFESSOR OF CHEMISTRY's Note.
My addenda:
78-year-old female with a history of A-fib, multiple myeloma came in for evaluation for fall at home with confusion. No prior history of seizure noted. She has been febrile. There was initially concern for possible meningitis/encephalitis. She
had lumbar FREDO on January 27. They attempted a lumbar puncture twice but she was unable to tolerate it. She did have an episode of confusion in August 2023 while on vacation with family as well. Her EEG does show rare generalized epileptiform
discharges. I have started her on a low-dose of Keppra. MRI brain showed old strokes but no acute stroke contributing to symptoms. Will continue to follow.
Original Note:
Consultation - Neurology 4
-
CONSULTING PHYSICIAN: Dipti Han DO
REFERRING PHYSICIAN: Hospitalists/Dr. Saldana
DICTATED BY: DIVINA Li
DATE/TIME OF REQUEST: 02/11/24
DATE/TIME OF CONSULTATION: 02/12/24
Reason for Consultation: Altered Mental Status
History of Present Illness:
This is a 78-year-old right-handed female with a PMH of multiple myeloma (Revlimid), Afib (Eliquis), HNT, HLD who has presented to the hospital on 02/08/24 with report of a fall at home and confusion. Patient's family reports that they found her on
the floor in her bedroom and she was unable to get back up with out assistance. They also noted that she seemed confused/not at her baseline and brought her to the ER for evaluation. On arrival in the ER patient was noted to have a rectal temp of
101.1. 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 Patient recently had a lumbar FREDO on 01/28/24 and ID
was consulted to evaluate for meningitis. Lumbar puncture was attempted x2 but was aborted due to the patient being uncooperative. Today (02/12/24), patient is awake, alert, and able to answer many questions appropriately. She reports that she is
here because she had a fall at home. She denies any headache, neck pain, vision changes, speech/swallow difficulty, numbness, focal weakness, chest pain, palpitations, and shortness of breath. She has been in uncontrolled Afib requiring Cardizem
drip. She apparently had a similar episode of confusion in August 2023 while on vacation. She was hospitalized at that time and treated for dehydration and rapid Afib.
Past Medical History: Multiple myeloma, +MGUS, paroxysmal Afib (Eliquis), DAVID, HTN, HLD, CKD, hypothyroidism, thrombophilia, GERD, basal cell carcinoma, chronic back pain
Surgical History: Recent lumbar FREDO,
Family History: Paternal grandfather- stroke.
Social History: Former smoker. Rare alcohol. No illicit drug use.
Allergies: Atorvastatin- myalgias.
Home Medications: See below.
Review of Symptoms:
Patient denies any fever, headache, chest pain, shortness of breath, GI or symptoms.
�Per the HPI.�All systems are reviewed negative except above.
Physical Exam:
The patient is afebrile, abdomen is nondistended, breathing is unlabored, skin is warm and dry, scabs on b/l knees, no edema.
Neurologic Examination:
The patient is awake, alert and oriented to person, place, and month, not year. She is able to follow commands and answer questions appropriately. There is no aphasia or dysarthria. No nuchal rigidity. On cranial nerve assessment, pupils are 3 mm
bilateral, round and reactive to light and accommodation. Visual rosales are full. She has a tendency to keep her left eyelid closed, opens its briskly on command, cannot explain why she is keeping it closed. Extraocular movements are intact. Facial
sensations are intact and bilaterally symmetrical, there is no facial asymmetry. Hearing is intact bilaterally to normal conversation volume. Tongue palate and uvula are midline. Sternocleidomastoid strengths are full bilaterally. Motor strengths
are 5/5 bilateral upper and lower extremities on medical research [place] scale. There is no drift. There is a LUE low amplitude semi rhythmic tremor on exertion only. No cogwheeling. Deep tendon reflexes are 2+ bilateral upper and lower extremities
and Babinski is absent bilaterally. There was no extinction noted on double simultaneous stimulation. Coordination is intact by finger to nose bilaterally.
Lab Results: See below.
Neuro Imaging:
1. MRI Brain 02/09/24: No MRI evidence for acute infarct or intracranial hemorrhage. 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 Small chronic transcortical infarcts in
the posterior and medial right parietal lobe. Small chronic white matter infarcts in the subcortical right parietal lobe and periventricular left frontal lobe. 1.3 cm chronic ischemic infarct in the posterior right cerebellar hemisphere. Mild
diffuse cerebral and cerebellar volume loss. Mild multilevel cervical spinal cord compression and central canal stenosis secondary to multilevel disc-osteophyte complexes and facet joint arthrosis. Severe degenerative disease between the left
lateral masses of C1 and C2. Tiny multiple myeloma lesions throughout the calvarium.
Differentials for the patient's presentation include:
1. Altered mental status, unclear etiology, likely TME in the setting of possible underlying cognitive impairment, multiple small old strokes, severe white matter disease, mild global atrophy. Cannot entirely exclude seizure.
2. MRI brain demonstrates several small chronic ischemic infarcts in the right parietal lobe, left frontal lobe, and right cerebellum.
3. Severe white matter disease and mild diffuse atrophy noted. Very low concern for PML especially given significant improvement in patient's mental status today.
4. Vitamin B12 level severely low, possibly contributing to confusion to some extent.
5. Underlying cognitive impairment possible.
6. Afib (Eliquis).
7. Likely benign essential tremor, no rigidity or resting tremor concerning for Parkinson disease.
Recommendations:
-Routine EEG pending.
-Continue home Eliquis.
-Cyanocobalamin 1000mcg IM x3 days, then change to oral.
-Goal normotension.
-Avoid sedation/benzodiazepines. Encourage appropriate sleep/wake cycles; adequate daytime light exposure, minimize daytime napping, minimize nighttime awakenings.
-PT/OT/ST evaluations.
-LDL goal <70 due to old strokes. Lipid panel pending. Patient is intolerant to statins, may need to consider PCSK9 inhibitory options.
-Goal normoglycemia, hbA1c is pending.
-Neurological checks per unit guidelines.
-Provide patient/family with a stroke education packet given several old strokes.
-DVT prophylaxis with OAC.
-Patient needs outpatient neuropsychological testing.
-Follow-up with Neurology as an outpatient, may see the ASSISTANT PROFESSOR OF CHEMISTRY or one of the physicians.
Discussed patient care with: Dr. Han
Vital Signs and Labs
-
Vital Signs and Labs:
Vital Signs
Temp Pulse Resp BP Pulse Ox
97.7 F 61 18 114/55 96
02/12/24 11:44 02/12/24 11:44 02/12/24 11:44 02/12/24 11:44 02/12/24 11:44
Lab Results
02/12/24 06:11
02/12/24 06:11
PT 18.2 Sec (11.4-14.6) H 02/09/24 16:16
INR 1.52 02/09/24 16:16
Sodium 138 mmol/L (135-145) 02/12/24 06:11
Potassium 3.5 mmol/L (3.5-5.1) 02/12/24 06:11
BUN 20 mg/dl (7-17) H 02/12/24 06:11
Glucose 99 mg/dl (70-99) 02/12/24 06:11
Calcium 7.7 mg/dl (8.4-10.2) L 02/12/24 06:11
Vitamin B12 < 159 pg/ml (239-931) L 02/10/24 06:06
Medications
-
Active Medications
Generic Name Dose Route Start Last Admin
Trade Name Freq PRN Reason Stop Dose Admin
Acetaminophen 650 mg 02/09/24 08:54 02/12/24 04:36
Acetaminophen 325 Mg Tablet PO 03/07/24 10:07 650 mg
Q4HPRN PRN Administration
mild pain/MCQUEEN/temp> 100.4F
Apixaban 5 mg 02/08/24 20:00 02/12/24 09:14
Apixaban (Eliquis) 5 Mg Tablet PO 03/07/24 19:59 5 mg
BID MARIANO Administration
Bisacodyl 10 mg 02/08/24 10:52
Bisacodyl 10 Mg Rectal Suppository RECTAL 03/07/24 10:51
[id number] PRN
constipation
Cholestyramine Resin 4 gram 02/08/24 20:00 02/12/24 09:13
Cholestyramine 4 Gram Packet PO 03/07/24 19:59 4 gram
BID MARIANO Administration
Cyanocobalamin 1,000 mcg 02/10/24 11:00 02/12/24 09:24
Cyanocobalamin (1000 Mcg/Ml) 1 Ml Vial IM 03/09/24 10:59 1,000 mcg
DAILY MARIANO Administration
Diltiazem HCl 5 mg 02/08/24 10:02 02/11/24 04:51
Diltiazem 25 Mg/5 Ml Vial IV 03/07/24 10:01 5 mg
Q6HPRN PRN Administration
HR > 120, hold for SBP < 110
Diltiazem HCl 120 mg 02/09/24 08:00 02/12/24 09:14
Diltiazem 120 Mg Extended Release (24 H) Capsule PO 03/08/24 07:59 120 mg
DAILY MARIANO Administration
Labetalol HCl 200 mg 02/08/24 20:00 02/12/24 09:14
Labetalol 200 Mg Tablet PO 03/07/24 19:59 200 mg
BID MARIANO Administration
Levothyroxine Sodium 100 mcg 02/09/24 06:00 02/12/24 05:42
Levothyroxine 100 Mcg Tablet PO 03/08/24 05:59 100 mcg
DAILY @ 0600 MARIANO Administration
Morphine Sulfate 1 mg 02/09/24 18:15 02/12/24 10:19
Morphine 2 Mg/Ml Syringe IV 02/23/24 18:14 1 mg
Q4HPRN PRN Administration
severe pain
Ondansetron HCl 4 mg 02/08/24 10:52
Ondansetron 4 Mg/2 Ml Vial IV 03/07/24 10:51
Q6HPRN PRN
nausea and vomiting
Pantoprazole Sodium 40 mg 02/09/24 08:00 02/12/24 09:14
Pantoprazole 40 Mg Delayed Release Tablet PO 03/08/24 07:59 40 mg
DAILY MARIANO Administration
Polyethylene Glycol 17 grams 02/08/24 10:52
Polyethylene Glycol Powder 17 Grams Packet PO 03/07/24 10:51
DAILYPRN PRN
constipation
Rosuvastatin Calcium 5 mg 02/09/24 08:00 02/12/24 09:13
Rosuvastatin (Crestor) 5 Mg Tablet PO 03/08/24 07:59 5 mg
DAILY MARIANO Administration
Senna/Docusate Sodium 1 tablet 02/08/24 10:52
Docusate W/Senna (Gabi-Colace) Tablet PO 03/07/24 10:51
BIDPRN PRN
constipation
Sodium Chloride 0 flush 02/08/24 12:00
Sodium Chloride 0.9% (Flush) Syringe IV 03/07/24 11:59
PER PROTOCOL MARIANO
Tizanidine HCl 2 mg 02/12/24 12:15
Tizanidine 2 Mg Tablet PO 03/11/24 12:14
BIDPRN PRN
muscle spasms
Tramadol HCl 25 mg 02/12/24 10:18
Tramadol Hcl 50 Mg Tablet PO 03/11/24 10:17
Q8HPRN PRN
moderate pain
Trimethoprim/Sulfamethoxazole 1 tablet 02/09/24 08:00 02/12/24 09:17
Sulfamethoxazole (400 Mg)/Trimethoprim (80 Mg) Tablet PO 03/07/24 08:01 1 tablet
DAILY MARIANO Administration
Venlafaxine HCl 50 mg 02/08/24 20:00 02/12/24 09:13
Venlafaxine 25 Mg Regular Release Tablet PO 03/07/24 19:59 50 mg
BID MARIANO Administration
Home Medications
�Medication �Instructions �Recorded
apixaban 5 mg tablet (Eliquis) 5 mg PO BID Blood Clot 02/12/18
Prevention/Tx
labetalol 200 mg tablet 200 mg PO BID Blood Pressure 02/12/18
omeprazole 20 mg tablet,delayed 20 mg PO DAILY Gastrointestinal 02/12/18
release Issue
cholestyramine (with sugar) 4 gram 4 g PO BID Gastrointestinal Issue 02/08/24
oral powder (Questran)
diltiazem HCl 120 mg tablet 120 mg PO DAILY Heart 02/08/24
Disease/Condition
lenalidomide 5 mg capsule 5 mg PO USEASDIRECTD Multiple 02/08/24
(Revlimid) myeloma
levothyroxine 100 mcg tablet 100 mcg PO DAILY Thyroid 02/08/24
(Synthroid)
loperamide 2 mg capsule 2 mg PO Q8HPRN PRN diarrhea 02/08/24
pregabalin 50 mg capsule 50 mg PO BID Pain 02/08/24
rosuvastatin 5 mg tablet 5 mg PO DAILY High Cholesterol 02/08/24
sulfamethoxazole 400 1 tab PO DAILY prophylaxis 02/08/24
mg-trimethoprim 80 mg tablet
(Bactrim)
tizanidine 2 mg capsule 2 mg PO BIDPRN PRN muscle spasms 02/08/24
tramadol 50 mg tablet 25 mg PO Q8HPRN PRN severe pain 02/08/24
venlafaxine 25 mg tablet 50 mg PO BID chronic pain 02/08/24
[2024-02-12] MEDS: EFFEXOR 50 MG PO ×2 (09:13→22:59)
[2024-02-12] MEDS: CRESTOR 5 MG PO (09:13)
[2024-02-12] MEDS: QUESTRAN 4 GRAM PO ×2 (09:13→22:58)
[2024-02-12] MEDS: PROTONIX 40 MG PO (09:14)
[2024-02-12] MEDS: CARDIZEM CD 120 MG PO (09:14)
[2024-02-12] MEDS: ELIQUIS 5 MG PO ×2 (09:14→22:58)
[2024-02-12] MEDS: TRANDATE 200 MG PO ×2 (09:14→22:57)
[2024-02-12] MEDS: BACTRIM 400 MG/80 MG 1 TABLET PO (09:17)
[2024-02-12] MEDS: CYANOCOBALAMIN 1000 MCG IM (09:24)
--- NOTE | 2024-02-12 09:36 | CM ---
PT recommended SNF
[facility]errals [facility] to [facility]
Plan: discharge to SNF when medically stable and available bed
--- NOTE | 2024-02-12 10:13 | W.PN.HOSP.TC ---
Today's Communication/Plan
-
defer LP and off Abx; d/w ID
Neurology consulted; to comment on MRI and also check EEG
Assessment / Plan
Assessment / Plan
Assessment:
Acute TME with confusion
Frequent falls
- CT: No CT evidence for acute intracranial hemorrhage or scalp soft tissue hematoma. Large number of lytic calvarial lesions consistent with MULTIPLE MYELOMA which appears unchanged. SEVERE WHITE MATTER DISEASE in both cerebral hemispheres which
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 Small chronic infarct in the right
cerebellar hemisphere. Mild diffuse cerebral and cerebellar volume loss.
- MRI: No MRI evidence for acute infarct or intracranial hemorrhage. 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 Small chronic transcortical infarcts in the posterior and
medial right parietal lobe. Small chronic white matter infarcts in the subcortical right parietal lobe and periventricular left frontal lobe. 1.3 cm chronic ischemic infarct in the posterior right cerebellar hemisphere. Mild diffuse cerebral and
cerebellar volume loss. Mild multilevel cervical spinal cord compression and central canal stenosis secondary to multilevel disc-osteophyte complexes and facet joint arthrosis. Severe degenerative disease between the left lateral masses of C1 and
C2. Tiny multiple myeloma lesions throughout the calvarium.
- TSH normal
- Folate normal
- Hypovitaminosis B12; replete with intra-muscularly daily
- recent lumbar spinal injection 01/24 noted, with fevers, could be concern for meningitis although clinically low suspicion with no neck stiffness, no recurrent fevers, no evidence of seizures no coma. s/p multiple LP attempts without success (too
agitated per IR).
- routine infectious workup negative. Off Abx
- EEG
- Neuro evaluation.
- PT/OT - will need SNF
Clinical dehydration
CECELIA
- continue IVF
- BMP improving
Hypokalemia
Hypomagnesemia
- replete prn
Hx of Multiple myeloma
- on Revlimid; held for now
- continue Bactrim prophylaxis
- followed by [facility]
Paroxysmal A-fib
- continue Eliquis
- s/p Cardizem drip; continue oral Cardizem and Labetalol. PRN Cardizem pushes
Essential HTN
- continue oral Cardizem and Labetalol
Hypothyroidism
- continue Levothyroxine
HLD - continue statin
Chronic back pain
- recent FREDO 3 weeks ago
- resume low dose Tramadol and Tizanidine. Resume Lyrica in 24-48 hours if further improvement.
DVT ppx: Lovenox
Code: Full
Anticipated Discharge: > 48 hours
Subjective/Interval History
-
Date of Service: February 12, 2024
slightly less confused today, still disoriented to place/time
sitting in chair
Objective Data
-
Labs:
Laboratory Results
02/12/24
06:11
WBC 4.2 L
Hgb 8.6 L
Hct 25.6 L
Plt Count 128 L
Sodium 138
Potassium 3.5
Chloride 108 H
Carbon Dioxide 22
BUN 20 H
Creatinine 0.7
Glucose 99
Calcium 7.7 L
Total Bilirubin 1.5 H
AST 23
ALT 22
Alkaline Phosphatase 160 H
Vital Signs:
Vital Signs
Temp Pulse Resp BP Pulse Ox
97.8 F 68 14 140/67 89
02/12/24 03:00 02/12/24 09:14 02/12/24 07:38 02/12/24 09:14 02/12/24 07:38
I&O
02/11/24 02/12/24 02/13/24
06:59 06:59 06:59
Intake Total 360 / 360 240 / 240
Output Total 150 / 150
Balance 210 / 210 240 / 240
Physical Exam
-
General: No Apparent Distress
HEENT: Normocephalic and Atraumatic
Cardiac: Irregular Rhythm
GI: Soft and Nontender
Musculoskeletal: No Edema
Neuro: Awake and Alert
Psych: Calm and Confused
Data Reviewed
-
Total Time Spent with Patient (in minutes): 41
Labs: Labs Reviewed by me
[2024-02-12 11:44] VITALS: BP 114/55
--- NOTE | 2024-02-12 13:34 | PTCARENOTE ---
Davina calderon d/c'd at 1038, patient remains Sinus bradycardic in 50's, medicated with PRN Morphine for c/o right back pain after PT/OT with good relief, tolerating diet, but intake poor, LUE with tremor, no nuchal rigidity, vss, will continue to
monitor.
--- NOTE | 2024-02-12 14:08 | W.PN.ID1 ---
Date of Service
Date of Service: February 12, 2024
Today's Communication
Observe off abx.
Assessment / Plan
Acute encephalopathy of unclear etiology
- suspect TME
Recent falls
Multiple myeloma; on Revlimid
A-fib (maintained on Eliquis)
HTN
Dyslipidemia
Recommendations:
LP unable to be performed, although patient clinically better. No need to pursue further at present.
Doubt a bacterial etiology. Observe off abx.
Little more to offer at present for an infectious disease standpoint.
Will see again at your request. Call with any questions.
����������������������������������������������������������
Chief Complaint
-: Other (Encephalopathy)
Subjective / Review of Systems
Review of Systems: No Fever
Vital Signs / Physical Exam
Vital Signs
Vital Signs
Temp Pulse Resp BP Pulse Ox
97.7 F 61 18 114/55 96
02/12/24 11:44 02/12/24 11:44 02/12/24 11:44 02/12/24 11:44 02/12/24 11:44
Physical Exam
Constitutional: No Acute Distress, Comfortable and Non-toxic
Cardiovascular: S1/S2; Negative S3/S4
Pulmonary: Non Labored
Gastrointestinal: Non Distended
Extremities: Negative Edema, Cyanosis or Erythema
Objective Data
Lab Data
Lab Results
02/12/24 06:11
02/12/24 06:11
PT 18.2 Sec (11.4-14.6) H 02/09/24 16:16
INR 1.52 02/09/24 16:16
Estimated Creat Clear 57 ml/min 02/12/24 06:11
Total Bilirubin 1.5 mg/dl (0.2-1.3) H 02/12/24 06:11
AST 23 U/L (14-36) 02/12/24 06:11
ALT 22 U/L (0-35) 02/12/24 06:11
Alkaline Phosphatase 160 U/L (38-126) H 02/12/24 06:11
Most recent labs reviewed.
Micro Results:
02/08/24 10:44 Blood Culture - Preliminary
Blood/Venous No Growth in 4 days- Final report to follow
Imaging:
02/09/2024 MRI brain: No MRI evidence for acute infarct or intracranial hemorrhage. 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 Case discussed with Radiology, and
findings not felt to be consistent with PML. Other findings included a small chronic transcortical infarcts in the posterior medial right parietal lobes. Also noted mild diffuse cerebral and cerebellar volume loss. Tiny multiple myeloma lesions
throughout the calvarium noted. Please see full dictation for additional detail.
02/09/2024 CXR (2 view): No active cardiopulmonary disease noted.
02/08/2024 CT head without contrast: No CT evidence for acute intracranial hemorrhage. Large number of lytic calvarial lesions noted. Severe white matter disease in both cerebral hemispheres, increased from 02/12/2018, and felt to be most likely
severe white matter leukoaraiosis, although PML and alternative diagnostic possibility. Please see full dictation for additional detail.
[2024-02-12 14:35] LABS: HDL Cholesterol 46 mg/dl; LDL Cholesterol, Calculated 62 mg/dl; Total Cholesterol 128 mg/dl (50-199); Triglyceride 101 mg/dl (10-149); Very Low Density Lipoprotein 20 mg/dl (0-30)
[2024-02-12 15:11] VITALS: BP 119/59
[2024-02-12] MEDS: KEPPRA 500 MG IV (18:19)
[2024-02-12 19:41] VITALS: BP 142/67
--- NOTE | 2024-02-12 22:12 | EEG.RPT ---
Electroencephalogram Report
Recording
Date of EE02/12/24
Type of EEG: Routine
Length of EEG recordin mins
Done with Video Recording: Yes
Patient Status: Inpatient
Recording Conditions: Awake
Hyperventilation Performed: No
Photic Stimulation Performed: Yes
Report
METHODS
A 21 channel digitized electroencephalogram was performed at [facility]. The 10/20 international system of electrode placement was used. In addition to EEG, the patient was monitored for EKG. The duration of the recording was 62 minutes.
BACKGROUND
This EEG consisted of mild generalized slowing of the background to 7-8Hz frequencies with rare generalized sharp waves.
PHOTIC STIMULATION
Photic stimulation using a step-lebron increase in photic frequency varying from 1-31 Hertz resulted in no driving responses but no change in the previously established background.
CLINICAL EVENTS
None
INTERPRETATION AND CLINICAL CORRELATION
This EEG is abnormal due to the presence of mild generalized theta-range slowing with rare generalized sharp waves. The study is consistent with rare generalized cortical irritability that increases her risk of seizures; however, no clear seizures
were noted.
[2024-02-12] MEDS: FLUSH (NSS) 2 FLUSH IV (23:30)
[2024-02-12 23:31] VITALS: BP 123/69
[2024-02-13] MEDS: TYLENOL 650 MG PO (01:40)
[2024-02-13 03:23] VITALS: BP 134/73
[2024-02-13] MEDS: MORPHINE SULFATE 1 MG IV ×4 (03:58→22:54)
[2024-02-13] MEDS: FLUSH (NSS) 2 FLUSH IV (04:00)
[2024-02-13] MEDS: SYNTHROID 100 MCG PO (06:39)
[2024-02-13 06:40] LABS: % Basophils 1.2 % (0-2); % Eosinophils 3.6 % (0-6); % Immature Granulocytes 0.2 % (0-0.5); % Lymphocytes 12.7 % (20.5-51.1); % Monocytes 13.9 % (1.7-9.3); % Neutrophils 68.4 % (42.2-75.2); Absolute Basophils 0.1 10^3/uL (0-0.2); Absolute Eosinophils 0.2 10^3/uL (0-0.7); Absolute Lymphocytes 0.5 10^3/uL (1.2-3.4); Absolute Monocytes 0.6 10^3/uL (0.1-0.6); Absolute Neutrophils 2.9 10^3/uL (1.4-6.5); Hematocrit 27.2 % (37.0-47.0); Hemoglobin 9.1 g/dL (12.0-16.0); Mean Corp Hgb Conc. 33.5 g/dL (33.0-37.0); Mean Corpuscular Hgb 30.1 pg (27.0-31.0); Mean Corpuscular Volume 90.1 fL (81.0-99.0); Mean Platelet Volume 11.1 fL (7.4-10.4); Nucleated Red Blood Cells % 0 %; Platelet Count 158 10^3/uL (130-400); Red Blood Cell Count 3.02 10^6/uL (4.20-5.40); Red Cell Dist. Width 17.3 % (11.5-14.5); White Blood Cell Count 4.2 10^3/uL (4.8-10.8)
[2024-02-13 07:00] VITALS: BP 152/92
[2024-02-13 07:10] LABS: ALT (SGPT) 23 U/L (0-35); AST (SGOT) 20 U/L (14-36); Albumin 2.8 g/dl (3.5-5.0); Alkaline Phosphatase 188 U/L (38-126); Blood Urea Nitrogen 18 mg/dl (7-17); Calcium 8.2 mg/dl (8.4-10.2); Carbon Dioxide 22 mmol/L (22-30); Chloride 110 mmol/L (98-107); Estimated Creatinine Clearance 57 ml/min; Glucose 89 mg/dl (70-99); Potassium 3.9 mmol/L (3.5-5.1); Sodium 141 mmol/L (135-145); Total Bilirubin 1.1 mg/dl (0.2-1.3); Total Protein 5.2 g/dl (6.3-8.2); eGFR > 60.00
[2024-02-13] MEDS: CRESTOR 5 MG PO (07:49)
[2024-02-13] MEDS: KEPPRA 500 MG IV ×2 (07:49→20:02)
[2024-02-13] MEDS: CYANOCOBALAMIN 1000 MCG IM (07:50)
[2024-02-13] MEDS: EFFEXOR 50 MG PO ×2 (07:51→20:02)
[2024-02-13] MEDS: CARDIZEM CD 120 MG PO (07:51)
[2024-02-13] MEDS: TRANDATE 200 MG PO ×2 (07:51→20:03)
[2024-02-13] MEDS: PROTONIX 40 MG PO (07:52)
[2024-02-13] MEDS: ELIQUIS 5 MG PO ×2 (07:53→20:02)
--- NOTE | 2024-02-13 09:29 | W.PN.NEURO.1 ---
Today's Communication / Plan
-
Continue Levetiracetam 500 mg BID
Cyanocobalamin 1000mcg change to oral routinely
Continue home Eliquis.
Neuro Assessment/Plan
Assessment
78-year-old female with a history of A-fib, multiple myeloma came in for evaluation for fall at home with confusion. No prior history of seizure noted. She has been febrile. There was initially concern for possible meningitis/encephalitis. She had
lumbar FREDO on January 27. They attempted a lumbar puncture twice but she was unable to tolerate it. She did have an episode of confusion in August 2023 while on vacation with family as well. Her EEG does show rare generalized epileptiform discharges.
MRI brain demonstrates several small chronic ischemic infarcts in the right parietal lobe, left frontal lobe, and right cerebellum.
Altered mental status, likely TME in the setting of possible underlying cognitive impairment, multiple small old strokes, severe white matter disease, mild global atrophy, with severely low vitamin B12 level
Underlying cognitive impairment possible.
Plan
Continue Levetiracetam 500 mg BID
Cyanocobalamin 1000mcg change to oral routinely
Continue home Eliquis.
Avoid sedation/benzodiazepines. Encourage appropriate sleep/wake cycles; adequate daytime light exposure, minimize daytime napping, minimize nighttime awakenings.
-PT/OT/ST evaluations.
-LDL goal <70 due to old strokes. Monitor at this time
-Provide patient/family with a stroke education packet given several old strokes.
-DVT prophylaxis with OAC.
-Patient needs outpatient neuropsychological testing.
We will follow as outpatient
Subjective/Objective
Subjective Data
Date of Service: February 13, 2024
'I haven't been sleeping well.'
Objective Data
Vital Signs
Temp Pulse Resp BP Pulse Ox
36.4 C 138 14 152/92 98
02/13/24 07:00 02/13/24 07:00 02/13/24 07:00 02/13/24 07:00 02/13/24 07:00
Lab Results
02/13/24 06:01
02/13/24 06:01
PT 18.2 Sec (11.4-14.6) H 02/09/24 16:16
INR 1.52 02/09/24 16:16
Sodium 141 mmol/L (135-145) 02/13/24 06:01
Potassium 3.9 mmol/L (3.5-5.1) 02/13/24 06:01
BUN 18 mg/dl (7-17) H 02/13/24 06:01
Glucose 89 mg/dl (70-99) 02/13/24 06:01
Calcium 8.2 mg/dl (8.4-10.2) L 02/13/24 06:01
LDL Cholesterol, Calc 62 mg/dl 02/12/24 06:11
Vitamin B12 < 159 pg/ml (239-931) L 02/10/24 06:06
Patient Allergies
atorvastatin calcium [From Lipitor] Allergy (Verified 02/08/24 06:14)
Unknown
Review of Systems
-
Unable to obtain full review of systems at this time due to: Dementia
History Source: Patient
All other systems: Reviewed and negative
Physical Exam
-
General: No Apparent Distress and Appears Stated Age
Eyes: Round OU, [place] Conjunctivae and No Ptosis
HEENT: Anicteric and Moist Mucous Membranes
Neck: Full Range of Motion
Respiratory: No Dyspnea
Cardiac: No JVD
GI: Non-distended
Skin: Unremarkable
Extremities: No Clubbing, No Cyanosis and No Edema
Psych: Negative Intact Judgement/Insight
Extended Neurological Exam
Mood & Affect: Mood Unremarkable and Affect Unremarkable
Attention Span & Concentration: Awake, Alert and Interactive
Memory: Unable to Recall Personal History
Tremor: Hand Tremor Absent and Head Tremor Absent
Speech: Quality Unremarkable and Quantity Unremarkable
Cranial Nerve II: Left Eye: Pupillary Size Unremarkable and Visual [place] Grossly Intact
Cranial Nerve II: Right Eye: Pupillary Size Unremarkable and Visual Donohue Grossly Intact
Cranial Nerves III, IV, : Extraocular Movement: Grossly Intact
Cranial Nerve VII: Facial Symmetry: Normal Facial Symmetry
Cranial Nerve VIII: Hearing: Unremarkable Hearing to Normal Conversational Volume
Cranial Nerve XI: Shoulder Shrug: Unremarkable
Muscle Strength, Overall: Full in Upper Extremities
Muscle Bulk & Tone: Bulk Unremarkable and Tone Unremarkable
Pronator Drift: No Drift in Upper Extremities
Touch Sensation: Unremarkable
Coordination: [id number] Testing Unremarkable
Data Reviewed
-
Labs: Report Reviewed
Reviewed with: Physician and Patient
Old Records: Summarized
Past History
Past History
ED Past Medical History: Cancer, HTN and Hypercholesterolemia
ED Past Surgical History: Orthopedic
Social History
Tobacco: Non-smoker
Alcohol: Occasional
Drug: None
Personal:
Living: with family
Employment: Retired
Family History
Family History: Other
Medications
-
Medications:
Generic Name Dose Route Start Last Admin
Trade Name Freq PRN Reason Stop Dose Admin
Acetaminophen 650 mg 02/09/24 08:54 02/13/24 01:40
Acetaminophen 325 Mg Tablet PO 03/07/24 10:07 650 mg
Q4HPRN PRN Administration
mild pain/MCQUEEN/temp> 100.4F
Apixaban 5 mg 02/08/24 20:00 02/13/24 07:53
Apixaban (Eliquis) 5 Mg Tablet PO 03/07/24 19:59 5 mg
BID MARIANO Administration
Bisacodyl 10 mg 02/08/24 10:52
Bisacodyl 10 Mg Rectal Suppository RECTAL 03/07/24 10:51
[id number] PRN
constipation
Cholestyramine Resin 4 gram 02/08/24 20:00 02/12/24 22:58
Cholestyramine 4 Gram Packet PO 03/07/24 19:59 4 gram
BID MARIANO Administration
Cyanocobalamin 1,000 mcg 02/13/24 08:00
Cyanocobalamin 1,000 Mcg Tablet PO 03/12/24 07:59
DAILY MARIANO
Diltiazem HCl 5 mg 02/08/24 10:02 02/11/24 04:51
Diltiazem 25 Mg/5 Ml Vial IV 03/07/24 10:01 5 mg
Q6HPRN PRN Administration
HR > 120, hold for SBP < 110
Diltiazem HCl 120 mg 02/09/24 08:00 02/13/24 07:51
Diltiazem 120 Mg Extended Release (24 H) Capsule PO 03/08/24 07:59 120 mg
DAILY MARIANO Administration
Labetalol HCl 200 mg 02/08/24 20:00 02/13/24 07:51
Labetalol 200 Mg Tablet PO 03/07/24 19:59 200 mg
BID MARIANO Administration
Levetiracetam 500 mg 02/12/24 18:15 02/13/24 07:49
Levetiracetam (100 Mg/Ml) 500 Mg/5 Ml Vial IV 03/11/24 18:14 500 mg
Q12 MARIANO Administration
Levothyroxine Sodium 100 mcg 02/09/24 06:00 02/13/24 06:39
Levothyroxine 100 Mcg Tablet PO 03/08/24 05:59 100 mcg
DAILY @ 0600 MARINAO Administration
Miconazole Nitrate 0 applic 02/13/24 08:00
Miconazole Powder Bottle TOPICAL 03/12/24 07:59
BID MARIANO
Morphine Sulfate 1 mg 02/09/24 18:15 02/13/24 03:58
Morphine 2 Mg/Ml Syringe IV 02/23/24 18:14 1 mg
Q4HPRN PRN Administration
severe pain
Ondansetron HCl 4 mg 02/08/24 10:52
Ondansetron 4 Mg/2 Ml Vial IV 03/07/24 10:51
Q6HPRN PRN
nausea and vomiting
Pantoprazole Sodium 40 mg 02/09/24 08:00 02/13/24 07:52
Pantoprazole 40 Mg Delayed Release Tablet PO 03/08/24 07:59 40 mg
DAILY MARIANO Administration
Polyethylene Glycol 17 grams 02/08/24 10:52
Polyethylene Glycol Powder 17 Grams Packet PO 03/07/24 10:51
DAILYPRN PRN
constipation
Rosuvastatin Calcium 5 mg 02/09/24 08:00 02/13/24 07:49
Rosuvastatin (Crestor) 5 Mg Tablet PO 03/08/24 07:59 5 mg
DAILY MARIANO Administration
Senna/Docusate Sodium 1 tablet 02/08/24 10:52
Docusate W/Senna (Gabi-Colace) Tablet PO 03/07/24 10:51
BIDPRN PRN
constipation
Sodium Chloride 0 flush 02/08/24 12:00 02/13/24 04:00
Sodium Chloride 0.9% (Flush) Syringe IV 03/07/24 11:59 2 flush
PER PROTOCOL MARIANO Administration
Tizanidine HCl 2 mg 02/12/24 12:15
Tizanidine 2 Mg Tablet PO 03/11/24 12:14
BIDPRN PRN
muscle spasms
Tramadol HCl 25 mg 02/12/24 10:18
Tramadol Hcl 50 Mg Tablet PO 03/11/24 10:17
Q8HPRN PRN
moderate pain
Trimethoprim/Sulfamethoxazole 1 tablet 02/09/24 08:00 02/12/24 09:17
Sulfamethoxazole (400 Mg)/Trimethoprim (80 Mg) Tablet PO 03/07/24 08:01 1 tablet
DAILY MARIANO Administration
Venlafaxine HCl 50 mg 02/08/24 20:00 02/13/24 07:51
Venlafaxine 25 Mg Regular Release Tablet PO 03/07/24 19:59 50 mg
BID MARIANO Administration
[2024-02-13] MEDS: BACTRIM 400 MG/80 MG 1 TABLET PO (09:55)
[2024-02-13] MEDS: DESENEX/MITRAZOL/ZEASORB 1 APPLIC TOPICAL ×2 (09:55→20:01)
[2024-02-13] MEDS: VITAMIN B-12 PO (09:55)
[2024-02-13 11:00] VITALS: BP 121/56
[2024-02-13 13:00] LABS: Glycohemoglobin (HgbA1c) 5.2 % (4.0-5.6)
--- NOTE | 2024-02-13 13:33 | W.PN.HOSP.TC ---
Today's Communication/Plan
-
dc in 24 hours to SNF if bed available
Assessment / Plan
Assessment / Plan
Assessment:
Acute TME with confusion
Frequent falls
- CT: No CT evidence for acute intracranial hemorrhage or scalp soft tissue hematoma. Large number of lytic calvarial lesions consistent with MULTIPLE MYELOMA which appears unchanged. SEVERE WHITE MATTER DISEASE in both cerebral hemispheres which
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 Small chronic infarct in the right
cerebellar hemisphere. Mild diffuse cerebral and cerebellar volume loss.
- MRI: No MRI evidence for acute infarct or intracranial hemorrhage. 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 Small chronic transcortical infarcts in the posterior and
medial right parietal lobe. Small chronic white matter infarcts in the subcortical right parietal lobe and periventricular left frontal lobe. 1.3 cm chronic ischemic infarct in the posterior right cerebellar hemisphere. Mild diffuse cerebral and
cerebellar volume loss. Mild multilevel cervical spinal cord compression and central canal stenosis secondary to multilevel disc-osteophyte complexes and facet joint arthrosis. Severe degenerative disease between the left lateral masses of C1 and
C2. Tiny multiple myeloma lesions throughout the calvarium.
- TSH normal
- Folate normal
- Hypovitaminosis B12; replete with intra-muscularly daily
- recent lumbar spinal injection 01/24 noted, with fevers, could be concern for meningitis although clinically low suspicion with no neck stiffness, no recurrent fevers, no evidence of seizures no coma. s/p multiple LP attempts without success (too
agitated per IR).
- routine infectious workup negative. Off Abx
- EEG
- Neuro evaluation.
- PT/OT - will need SNF
Clinical dehydration
CECELIA
- continue IVF
- BMP improving
Hypokalemia
Hypomagnesemia
- replete prn
Hx of Multiple myeloma
- on Revlimid; held for now
- continue Bactrim prophylaxis
- followed by [facility] (Isacc Vivar)
Paroxysmal A-fib
- continue Eliquis
- s/p Cardizem drip; continue oral Cardizem and Labetalol. PRN Cardizem pushes
Essential HTN
- continue oral Cardizem and Labetalol
Hypothyroidism
- continue Levothyroxine
HLD - continue statin
Chronic back pain
- recent FREDO 3 weeks ago
- resume low dose Tramadol and Tizanidine. Resume Lyrica in 24-48 hours if further improvement.
DVT ppx: Lovenox
Code: Full
Anticipated Discharge: Within 24 hours
Subjective/Interval History
-
Date of Service: February 13, 2024
more alert today, less confused
Objective Data
-
Labs:
Laboratory Results
02/13/24
06:01
WBC 4.2 L
Hgb 9.1 L
Hct 27.2 L
Plt Count 158 D
Sodium 141
Potassium 3.9
Chloride 110 H
Carbon Dioxide 22
BUN 18 H
Creatinine 0.7
Glucose 89
Calcium 8.2 L
Total Bilirubin 1.1
AST 20
ALT 23
Alkaline Phosphatase 188 H
Vital Signs:
Vital Signs
Temp Pulse Resp BP Pulse Ox
97.8 F 59 16 121/56 97
02/13/24 11:00 02/13/24 11:00 02/13/24 11:00 02/13/24 11:00 02/13/24 11:00
I&O
02/12/24 02/13/24 02/14/24
06:59 06:59 06:59
Intake Total 240 / 240 600 / 600
Balance 240 / 240 600 / 600
Physical Exam
-
General: No Apparent Distress
HEENT: Normocephalic and Atraumatic
Respiratory: Negative Wheezes
Cardiac: Regular Rhythm and S1/S2
GI: Soft
Neuro: Awake and Alert
Psych: Calm
Data Reviewed
-
Total Time Spent with Patient (in minutes): 41
Labs: Labs Reviewed by me
[2024-02-13] MEDS: QUESTRAN 4 GRAM PO ×2 (13:51→21:37)
--- NOTE | 2024-02-13 14:10 | CM ---
Per Attending, patient stable for discharge tomorrow pending bed availability
Spoke with [facility]; reported that no bed available tomorrow; need to call on Friday for bed status
Per [facility], if medication for her Multiple Myeloma is needed during SNF stay, patient will need to provide it; and instructions for administration needs to be included in DC instructions; Attending notified
Plan: Discharge to SNF pending bed availability
[2024-02-13 15:00] VITALS: BP 152/69
[2024-02-13 19:15] VITALS: BP 153/74
[2024-02-13 23:20] VITALS: BP 138/60
[2024-02-14] VITALS (7 sets, daily range): BP systolic 123–151; BP diastolic 61–84
[2024-02-14] MEDS: SYNTHROID 100 MCG PO (05:41)
[2024-02-14] MEDS: VITAMIN B-12 1000 MCG PO (07:28)
[2024-02-14] MEDS: ELIQUIS 5 MG PO ×2 (07:28→20:10)
[2024-02-14] MEDS: KEPPRA 500 MG IV ×2 (07:28→20:10)
[2024-02-14] MEDS: BACTRIM 400 MG/80 MG 1 TABLET PO (07:28)
[2024-02-14] MEDS: TRANDATE 200 MG PO ×2 (07:29→20:10)
[2024-02-14] MEDS: PROTONIX 40 MG PO (07:29)
[2024-02-14] MEDS: CRESTOR 5 MG PO (07:29)
[2024-02-14] MEDS: CARDIZEM CD 120 MG PO (07:29)
[2024-02-14] MEDS: EFFEXOR 50 MG PO ×2 (07:29→20:09)
[2024-02-14] MEDS: DESENEX/MITRAZOL/ZEASORB 1 APPLIC TOPICAL ×2 (07:29→20:09)
[2024-02-14] MEDS: MORPHINE SULFATE 1 MG IV ×2 (07:35→17:22)
[2024-02-14] MEDS: QUESTRAN 4 GRAM PO ×2 (09:13→21:55)
--- NOTE | 2024-02-14 12:08 | W.PN.HOSP.TC ---
Today's Communication/Plan
-
Medically stable for DC to SNF pending bed availability
Assessment / Plan
Assessment / Plan
Assessment:
Acute TME with confusion
Frequent falls
- CT: No CT evidence for acute intracranial hemorrhage or scalp soft tissue hematoma. Large number of lytic calvarial lesions consistent with MULTIPLE MYELOMA which appears unchanged. SEVERE WHITE MATTER DISEASE in both cerebral hemispheres which
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 Small chronic infarct in the right
cerebellar hemisphere. Mild diffuse cerebral and cerebellar volume loss.
- MRI: No MRI evidence for acute infarct or intracranial hemorrhage. 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 Small chronic transcortical infarcts in the posterior and
medial right parietal lobe. Small chronic white matter infarcts in the subcortical right parietal lobe and periventricular left frontal lobe. 1.3 cm chronic ischemic infarct in the posterior right cerebellar hemisphere. Mild diffuse cerebral and
cerebellar volume loss. Mild multilevel cervical spinal cord compression and central canal stenosis secondary to multilevel disc-osteophyte complexes and facet joint arthrosis. Severe degenerative disease between the left lateral masses of C1 and
C2. Tiny multiple myeloma lesions throughout the calvarium.
- TSH normal
- Folate normal
- Hypovitaminosis B12; replete daily
- recent lumbar spinal injection 01/24 noted, with fevers, could be concern for meningitis although clinically low suspicion with no neck stiffness, no recurrent fevers, no evidence of seizures no coma. s/p multiple LP attempts without success (too
agitated per IR).
- routine infectious workup negative. Off Abx
- EEG with epileptiform changes, now on low dose Keppra per Neurology.
- outpatient neurocognitive testing.
- PT/OT - will need SNF
Clinical dehydration
CECELIA
- continue IVF
- BMP improving
Hypokalemia
Hypomagnesemia
- replete prn
Hx of Multiple myeloma
- on Revlimid; held for now until family brings it in
- continue Bactrim prophylaxis
- followed by [facility] (Isacc Vivar)
Paroxysmal A-fib
- continue Eliquis
- s/p Cardizem drip; continue oral Cardizem and Labetalol. PRN Cardizem pushes
Essential HTN
- continue oral Cardizem and Labetalol
Hypothyroidism
- continue Levothyroxine
HLD - continue statin
Chronic back pain
- recent FREDO 3 weeks ago
- resume low dose Tramadol and Tizanidine. Resume Lyrica in 24-48 hours if further improvement.
DVT ppx: Lovenox
Code: Full
Anticipated Discharge: > 48 hours
Subjective/Interval History
-
Date of Service: February 14, 2024
resting comfortably, no other complaints
Objective Data
-
Vital Signs:
Vital Signs
Temp Pulse Resp BP Pulse Ox
97.6 F 72 19 123/79 98
02/14/24 08:29 02/14/24 08:29 02/14/24 08:29 02/14/24 08:29 02/14/24 08:29
I&O
02/13/24 02/14/24 02/15/24
06:59 06:59 06:59
Intake Total 600 / 600 1200 / 1200
Balance 600 / 600 1200 / 1200
Physical Exam
-
General: No Apparent Distress
HEENT: Normocephalic
Respiratory: Negative Wheezes
Cardiac: Regular Rhythm and S1/S2
GI: Soft
Musculoskeletal: No Edema
Neuro: Awake and Alert
Hematologic / Lymphatic: No Lymphadenopathy
Psych: Calm and Confused (mildly)
Data Reviewed
-
Total Time Spent with Patient (in minutes): 41
Labs: Labs Reviewed by me
[2024-02-15 03:09] VITALS: BP 152/76
[2024-02-15] MEDS: SYNTHROID 100 MCG PO (05:57)
[2024-02-15] MEDS: VITAMIN B-12 1000 MCG PO (07:35)
[2024-02-15] MEDS: ELIQUIS 5 MG PO ×2 (07:35→20:22)
[2024-02-15] MEDS: QUESTRAN 4 GRAM PO ×2 (07:35→20:25)
[2024-02-15] MEDS: TRANDATE 200 MG PO ×2 (07:35→20:23)
[2024-02-15] MEDS: CRESTOR 5 MG PO (07:35)
[2024-02-15] MEDS: PROTONIX 40 MG PO (07:35)
[2024-02-15] MEDS: CARDIZEM CD 120 MG PO (07:35)
[2024-02-15] MEDS: EFFEXOR 50 MG PO ×2 (07:35→20:25)
[2024-02-15 07:36] VITALS: BP 119/98
[2024-02-15] MEDS: BACTRIM 400 MG/80 MG 1 TABLET PO (07:36)
[2024-02-15] MEDS: DESENEX/MITRAZOL/ZEASORB 1 APPLIC TOPICAL ×2 (07:36→20:27)
[2024-02-15] MEDS: KEPPRA 500 MG IV ×2 (07:36→20:22)
[2024-02-15] MEDS: FLUSH (NSS) 2 FLUSH IV (07:39)
--- NOTE | 2024-02-15 10:20 | W.PN.HOSP.TC ---
Today's Communication/Plan
-
pending SNF placement
Assessment / Plan
Assessment / Plan
Assessment:
Acute TME with confusion
Frequent falls
- CT: No CT evidence for acute intracranial hemorrhage or scalp soft tissue hematoma. Large number of lytic calvarial lesions consistent with MULTIPLE MYELOMA which appears unchanged. SEVERE WHITE MATTER DISEASE in both cerebral hemispheres which
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 Small chronic infarct in the right
cerebellar hemisphere. Mild diffuse cerebral and cerebellar volume loss.
- MRI: No MRI evidence for acute infarct or intracranial hemorrhage. 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 Small chronic transcortical infarcts in the posterior and
medial right parietal lobe. Small chronic white matter infarcts in the subcortical right parietal lobe and periventricular left frontal lobe. 1.3 cm chronic ischemic infarct in the posterior right cerebellar hemisphere. Mild diffuse cerebral and
cerebellar volume loss. Mild multilevel cervical spinal cord compression and central canal stenosis secondary to multilevel disc-osteophyte complexes and facet joint arthrosis. Severe degenerative disease between the left lateral masses of C1 and
C2. Tiny multiple myeloma lesions throughout the calvarium.
- TSH normal
- Folate normal
- Hypovitaminosis B12; replete daily
- recent lumbar spinal injection 01/24 noted, with fevers, could be concern for meningitis although clinically low suspicion with no neck stiffness, no recurrent fevers, no evidence of seizures no coma. s/p multiple LP attempts without success (too
agitated per IR).
- routine infectious workup negative. Off Abx
- EEG with epileptiform changes, now on low dose Keppra per Neurology.
- outpatient neurocognitive testing.
- PT/OT - will need SNF
Clinical dehydration
CECELIA
- continue IVF
- BMP improving
Hypokalemia
Hypomagnesemia
- replete prn
Hx of Multiple myeloma
- on Revlimid; held for now until family brings it in
- continue Bactrim prophylaxis
- followed by [facility] (Isacc Vivar)
Paroxysmal A-fib
- continue Eliquis
- s/p Cardizem drip; continue oral Cardizem and Labetalol. PRN Cardizem pushes
Essential HTN
- continue oral Cardizem and Labetalol
Hypothyroidism
- continue Levothyroxine
HLD - continue statin
Chronic back pain
- recent FREDO 3 weeks ago
- resume low dose Tramadol and Tizanidine. Resume Lyrica in 24 hours if further improvement.
DVT ppx: Lovenox
Code: Full
Anticipated Discharge: Within 24 hours
Subjective/Interval History
-
Date of Service: February 15, 2024
no new complaints
Objective Data
-
Vital Signs:
Vital Signs
Temp Pulse Resp BP Pulse Ox
97.6 F 79 20 119/98 98
02/15/24 07:36 02/15/24 07:36 02/15/24 07:36 02/15/24 07:36 02/15/24 07:36
I&O
02/14/24 02/15/24 02/16/24
06:59 06:59 06:59
Intake Total 1200 / 1200 720 / 720
Balance 1200 / 1200 720 / 720
Physical Exam
-
General: No Apparent Distress
HEENT: Normocephalic and Atraumatic
Respiratory: Negative Wheezes
Cardiac: Regular Rhythm
GI: Soft
Genito-urinary: No Costovertebral Tender
Musculoskeletal: No Edema
Neuro: Awake and Alert
Psych: Calm
Data Reviewed
-
Total Time Spent with Patient (in minutes): 41
Labs: Labs Reviewed by me
[2024-02-15 15:33] VITALS: BP 162/91
[2024-02-15] MEDS: ULTRAM 25 MG PO (21:49)
[2024-02-15 23:09] VITALS: BP 152/75
[2024-02-16] MEDS: SYNTHROID 100 MCG PO (05:04)
[2024-02-16 06:26] LABS: Hematocrit 32.6 % (37.0-47.0); Hemoglobin 10.9 g/dL (12.0-16.0); Mean Corp Hgb Conc. 33.4 g/dL (33.0-37.0); Mean Corpuscular Hgb 30.8 pg (27.0-31.0); Mean Corpuscular Volume 92.1 fL (81.0-99.0); Mean Platelet Volume 10.5 fL (7.4-10.4); Platelet Count 252 10^3/uL (130-400); Red Blood Cell Count 3.54 10^6/uL (4.20-5.40); White Blood Cell Count 4.1 10^3/uL (4.8-10.8)
[2024-02-16 06:41] LABS: Blood Urea Nitrogen 15 mg/dl (7-17); Calcium 9.5 mg/dl (8.4-10.2); Carbon Dioxide 25 mmol/L (22-30); Chloride 105 mmol/L (98-107); Estimated Creatinine Clearance 50 ml/min; Glucose 96 mg/dl (70-99); Potassium 3.4 mmol/L (3.5-5.1); Sodium 140 mmol/L (135-145); eGFR > 60.00
[2024-02-16] MEDS: EFFEXOR 50 MG PO (07:31)
[2024-02-16] MEDS: KEPPRA 500 MG IV (07:32)
[2024-02-16] MEDS: VITAMIN B-12 1000 MCG PO (07:32)
[2024-02-16] MEDS: CRESTOR 5 MG PO (07:32)
[2024-02-16] MEDS: PROTONIX 40 MG PO (07:32)
[2024-02-16] MEDS: ELIQUIS 5 MG PO (07:32)
[2024-02-16] MEDS: DESENEX/MITRAZOL/ZEASORB 1 APPLIC TOPICAL (07:34)
[2024-02-16] MEDS: TRANDATE 200 MG PO (07:49)
[2024-02-16] MEDS: QUESTRAN 4 GRAM PO (07:49)
[2024-02-16] MEDS: CARDIZEM CD 120 MG PO (07:49)
[2024-02-16 07:51] VITALS: BP 185/98
--- NOTE | 2024-02-16 08:49 | W.PN.HOSP.TC ---
Today's Communication/Plan
-
dispo planning
Assessment / Plan
Assessment / Plan
Assessment:
- CT: No CT evidence for acute intracranial hemorrhage or scalp soft tissue hematoma. Large number of lytic calvarial lesions consistent with MULTIPLE MYELOMA which appears unchanged. SEVERE WHITE MATTER DISEASE in both cerebral hemispheres which
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 Small chronic infarct in the right
cerebellar hemisphere. Mild diffuse cerebral and cerebellar volume loss.
- MRI: No MRI evidence for acute infarct or intracranial hemorrhage. 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 Small chronic transcortical infarcts in the posterior and
medial right parietal lobe. Small chronic white matter infarcts in the subcortical right parietal lobe and periventricular left frontal lobe. 1.3 cm chronic ischemic infarct in the posterior right cerebellar hemisphere. Mild diffuse cerebral and
cerebellar volume loss. Mild multilevel cervical spinal cord compression and central canal stenosis secondary to multilevel disc-osteophyte complexes and facet joint arthrosis. Severe degenerative disease between the left lateral masses of C1 and
C2. Tiny multiple myeloma lesions throughout the calvarium.
Acute TME with confusion
Frequent falls
Seizure Activity on EEG
- CT head without bleed, MRI with severe white matter leukoaraisosis and chronic old infarcts
- TSH normal
- Folate normal
- Hypovitaminosis B12; replete daily
- recent lumbar spinal injection 01/24 noted, with fevers, could be concern for meningitis although clinically low suspicion with no neck stiffness, no recurrent fevers, no evidence of seizures no coma. s/p multiple LP attempts without success (too
agitated per IR). no further fevrs, appreciate iD
- routine infectious workup negative. Off Abx
- EEG with epileptiform changes, now on low dose Keppra per Neurology --> change to PO
- outpatient neurocognitive testing.
- PT/OT - will need SNF
Clinical dehydration
CECELIA
- continue IVF
- BMP improving
Hypokalemia
Hypomagnesemia
- replete prn
Hx of Multiple myeloma
- on Revlimid; held for now until family brings it in
- continue Bactrim prophylaxis
- followed by [facility] (Isacc Pollardbakari)
Paroxysmal A-fib
- continue Eliquis
- s/p Cardizem drip; continue oral Cardizem and Labetalol. PRN Cardizem pushes
Essential HTN
- continue oral Cardizem and Labetalol
Hypothyroidism
- continue Levothyroxine
HLD - continue statin
Chronic back pain
- recent FREDO 3 weeks ago
- resume low dose Tramadol and Tizanidine. Resume Lyrica in 24 hours if further improvement.
DVT ppx: Lovenox
Code: Full
Anticipated Discharge: Within 24 hours
Subjective/Interval History
-
Date of Service: February 16, 2024
feeling well
on phone refilling her MM medication
no pain
able to tell me why she was int hospital
Objective Data
-
Labs:
Laboratory Results
02/16/24
05:59
WBC 4.1 L
Hgb 10.9 L
Hct 32.6 L
Plt Count 252 D
Sodium 140
Potassium 3.4 L
Chloride 105
Carbon Dioxide 25
BUN 15
Creatinine 0.8
Glucose 96
Calcium 9.5
Vital Signs:
Vital Signs
Temp Pulse Resp BP Pulse Ox
98.0 F 85 12 185/98 97
02/16/24 07:51 02/16/24 07:51 02/16/24 07:51 02/16/24 07:51 02/16/24 07:51
I&O
02/15/24 02/16/24 02/17/24
06:59 06:59 06:59
Intake Total 720 / 720 0 / 2160
Balance 720 / 720 2159 / 2160
Review of Systems
-
History Source: Patient
All other systems: Reviewed and negative
Physical Exam
-
General: No Apparent Distress
HEENT: Normocephalic and Atraumatic
Respiratory: Negative Wheezes
Cardiac: Regular Rhythm
GI: Soft
Genito-urinary: No Costovertebral Tender
Musculoskeletal: No Edema
Neuro: Awake, Alert and AO x 3
Psych: Calm
Data Reviewed
-
Diagnostic Radiology: Report Reviewed by me
Labs: Labs Reviewed by me
[2024-02-16] MEDS: BACTRIM 400 MG/80 MG 1 TABLET PO (09:39)
[2024-02-16 11:30] VITALS: BP 146/68
--- NOTE | 2024-02-16 11:30 | CM ---
Addendum entered by Nohemi Black 02/16/24 12:16:
1300 pickup
Acute Care number provided to pt for payment
Original Note:
CM reviewed pt with Dr Wright- remains ready for dc
Discussion with [facility]- pt offered bed pending pt to bring Remlivid med with her
Bedside meeting with pt- she confirmed she re-ordered Remlivid today with [facility]
Will be delivered tomorrow and spouse will bring to [facility]/admissions in agreement with plan
IMM verbally reviewed with pt and spouse bedside
Copy provided
Transportation discussed- does not meet criteria for BLS
Pt and spouse in agreement with [employer] van and fees
Discharge Disposition- [facility] via [facility]
Phone- [phone] 4th floor Fax- [phone]
--- NOTE | 2024-02-16 12:21 | W.DS.TRANS ---
DC Summary - Property Insurance Agent
-
Discharge Instructions:
Discharge Diagnosis/Procedures B12 deficiency, epileptiform changes on EEG,
metabolic encephalopathy
Diet 2 Gram Sodium,Low Cholesterol
Activity As tolerated
Bathing Restrictions None
Other Services PT,OT
Instructions:
Stand-Alone Forms:
Changes to Home Medications: Yes
Discharge Medications:
DC Medications w/original date entered in [facility]
apixaban 5 mg tablet (Eliquis) 5 mg PO BID Blood Clot Prevention/Tx 02/12/18
labetalol 200 mg tablet 200 mg PO BID Blood Pressure 02/12/18
omeprazole 20 mg tablet,delayed release 20 mg PO DAILY Gastrointestinal Issue 02/12/18
cholestyramine (with sugar) 4 gram oral powder (Questran) 4 g PO BID Gastrointestinal Issue 02/08/24
diltiazem HCl 120 mg tablet 120 mg PO DAILY Heart Disease/Condition 02/08/24
lenalidomide 5 mg capsule (Revlimid) 5 mg PO USEASDIRECTD Multiple myeloma 02/08/24
levothyroxine 100 mcg tablet (Synthroid) 100 mcg PO DAILY Thyroid 02/08/24
loperamide 2 mg capsule 2 mg PO Q8HPRN PRN diarrhea 02/08/24
pregabalin 50 mg capsule 50 mg PO BID Pain 02/08/24
rosuvastatin 5 mg tablet 5 mg PO DAILY High Cholesterol 02/08/24
sulfamethoxazole 400 mg-trimethoprim 80 mg tablet (Bactrim) 1 tab PO DAILY prophylaxis 02/08/24
tizanidine 2 mg capsule 2 mg PO BIDPRN PRN muscle spasms 02/08/24
venlafaxine 25 mg tablet 50 mg PO BID chronic pain 02/08/24
acetaminophen 325 mg tablet 650 mg (2 x 325 mg) PO Q4HPRN PRN mild pain/MCQUEEN/temp> 100.4F #7 tabs 02/16/24
cyanocobalamin (vitamin B-12) 1,000 mcg tablet 1,000 mcg PO DAILY #30 tabs 02/16/24
levetiracetam 500 mg tablet (Keppra) 500 mg PO BID #60 tabs 02/16/24
miconazole nitrate 2 % topical powder (Miconazorb AF) 1 applic topical BID #85 grams 02/16/24
tramadol 50 mg tablet 25 mg (1/2 x 50 mg) PO Q8HPRN PRN severe pain #10 tabs 02/16/24
Home Medication Changes
You are newly started on Keppra (Levetiracetam) 500mg twice a day for seizure
You are newly started on vitamin B12 supplementation. Your levels were very low and can cause confusion.
I spoke to Dr. Vivar's office and they recommend holding Lenalidomide (Revlimid) until follow up with them. They will call [facility] if they would like for you to resume it sooner.
Pending Results: No
--- NOTE | 2024-02-16 14:36 | W.DCSUMMARY ---
Discharge Summary
Discharge Data
Date of Admission: 02/08/24
Date of Discharge: 02/16/24
-
Pending Results: No
Hospital Course
Discharging Physician : Dr. Alba Wright
Disposition : SNF
Primary care physician : Dr. Espinoza Kaplan
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
seen on MRI
Hospital Course :
Ms. Melanie Cadet is a 78 yo woman with hx multiple myeloma, atrial fibrillation on Eliquis, HTN, HLD, chronic back pain s/p FREDO 01/27, presents to the ER with confusion and recurrent falls. She was found to be febrile to 101. No
leukocytosis. CT head without acute hemorrhage. She was admitted to medicine with ID and Neurology consulting.
Vitamin B12 undetectable, she was started on repletion. TSH and folate WNL.
Infectious work-up including UA, blood cultures, chest-x-ray were negative. LP attempted but could not be completed 2/2 agitation and clinically patient was not presenting as meningitis. Antibiotics stopped and she has remained afebrile.
MRI obtained, results below without evidence of acute disease but finding of multiple old infarcts, severe white matter leukoaraiosis, mild diffuse cerebral and cerebellar volume loss. EEG was consistent with rare generalized cortical irritability
that increases risk of seizures (no seizure identified) and therefore patient was started on Keppra.
She is discharged to SNF. Discussed with her Oncology team, OK to hold Revlimid until redirected as outpatient - this is relayed on her discharge instructions.
Time spent on discharge was 35 minutes.
Important imaging findings :
- CT: No CT evidence for acute intracranial hemorrhage or scalp soft tissue hematoma. Large number of lytic calvarial lesions consistent with MULTIPLE MYELOMA which appears unchanged. SEVERE WHITE MATTER DISEASE in both cerebral hemispheres which
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 Small chronic infarct in the right
cerebellar hemisphere. Mild diffuse cerebral and cerebellar volume loss.
- MRI: No MRI evidence for acute infarct or intracranial hemorrhage. 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 Small chronic transcortical infarcts in the posterior and
medial right parietal lobe. Small chronic white matter infarcts in the subcortical right parietal lobe and periventricular left frontal lobe. 1.3 cm chronic ischemic infarct in the posterior right cerebellar hemisphere. Mild diffuse cerebral and
cerebellar volume loss. Mild multilevel cervical spinal cord compression and central canal stenosis secondary to multilevel disc-osteophyte complexes and facet joint arthrosis. Severe degenerative disease between the left lateral masses of C1 and
C2. Tiny multiple myeloma lesions throughout the calvarium.
Procedure findings :
Discharge Plan
-
Patient Disposition: Usp/SNF
Discharge Diagnosis/Procedures: B12 deficiency, epileptiform changes on EEG, metabolic encephalopathy
Condition: Good
Diet: Low Cholesterol and 2 Gram Sodium
Activity: As tolerated
Bathing Restrictions: None
Other Services: PT and OT
Referrals:
Espinzoa Kaplan I., DO [Family Provider] - in less than 1 week
Gail Medley CRNP [Specified Professional Personl] - in one to two months (outpatient neuro-cognitive testing)
Additional Discharge Medication Instructions: You are newly started on Keppra (Levetiracetam) 500mg twice a day for seizure
You are newly started on vitamin B12 supplementation. Your levels were very low and can cause confusion.
I spoke to Dr. Vivar's office and they recommend holding Lenalidomide (Revlimid) until follow up with them. They will call [facility] Griffith if they would like for you to resume it sooner.
Prescriptions:
New
miconazole nitrate [Miconazorb AF] 2 % Powder
1 applic topical BID Qty: 85 0RF
acetaminophen 325 mg Tablet
650 mg PO Q4HPRN PRN (Reason: mild pain/MCQUEEN/temp> 100.4F) Qty: 7 0RF
cyanocobalamin (vitamin B-12) 1,000 mcg Tablet
1,000 mcg PO DAILY Qty: 30 0RF
levetiracetam [Keppra] 500 mg tablet
500 mg PO BID Qty: 60 0RF
Continued
labetalol 200 MG tablet
200 mg PO BID
omeprazole 20 MG tablet,delayed release (DR/EC)
20 mg PO DAILY
Eliquis 5 MG tablet
5 mg PO BID
loperamide 2 mg Capsule
2 mg PO Q8HPRN PRN (Reason: diarrhea)
sulfamethoxazole-trimethoprim [Bactrim] 400-80 mg Tablet
1 tab PO DAILY
venlafaxine 25 mg Tablet
50 mg PO BID
diltiazem HCl 120 mg Tablet
120 mg PO DAILY
cholestyramine (with sugar) [Questran] 4 gram Powder
4 g PO BID
tizanidine 2 mg Capsule
2 mg PO BIDPRN PRN (Reason: muscle spasms)
pregabalin 50 mg Capsule
50 mg PO BID
levothyroxine [Synthroid] 100 mcg tablet
100 mcg PO DAILY
rosuvastatin 5 mg tablet
5 mg PO DAILY
tramadol 50 mg tablet
25 mg PO Q8HPRN PRN (Reason: severe pain) Qty: 10 0RF
Held
lenalidomide [Revlimid] 5 mg Capsule
5 mg PO USEASDIRECTD
Hold Instructions: Resume on 02/25/24. hold until further directed by your Oncologist, Dr. Isacc Vivar.
Rx Instructions:
1 cap for 21 days, then off x 7 days
Discharge Orders:
Discharge Patient (As Directed); Ordered 02/16/24
Ordered By: Alba Wright
Discharge Date and Time
Discharge Date/Time: 02/16/24 13:10
Print Language: ICELANDIC
== END 2024-02-16 13:10 | DRG 682 ==
LOC: 3 WEST ACU 10:10
PROVIDERS: Emergency Medicine; Internal Medicine; Radiology Vascular & Interventional Radiology; ADMITTING PHYSICIAN Internal Medicine; ATTENDING PHYSICIAN Student in an Organized Health Care Education/Training Program; CONSULT PHYSICIAN Internal Medicine Infectious Disease; CONSULT PHYSICIAN Psychiatry & Neurology Neurology; EMERGENCY PHYSICIAN Student in an Organized Health Care Education/Training Program; FAMILY PHYSICIAN Internal Medicine
PROC: 00JU3ZZ Inspection of Spinal Canal, Percutaneous Approach (ICD-10-PCS; 2024-02-09)
DX: N17.9 Acute kidney failure, unspecified (principal); G92.8 Other toxic encephalopathy; G93.41 Metabolic encephalopathy; C90.00 Multiple myeloma not having achieved remission; I48.0 Paroxysmal atrial fibrillation; E86.0 Dehydration; N18.9 Chronic kidney disease, unspecified; I12.9 Hypertensive chronic kidney disease with stage 1 through stage 4 chronic kidney disease, or unspecified chronic kidney disease; E78.00 Pure hypercholesterolemia, unspecified; Z87.891 Personal history of nicotine dependence; E03.9 Hypothyroidism, unspecified; E53.8 Deficiency of other specified B group vitamins; Z75.1 Person awaiting admission to adequate facility elsewhere; Z11.52 Encounter for screening for COVID-19
CPT/HCPCS: 51701; 62328; 70450; 70553; 71046; 80048; 80053; 80061; 81003; 82607; 82746; 83036; 83735; 84443; 85025; 85027; 85610; 86803; 87040; 87811; 92526; 92610; 93005; 93971; 95813; 96361; 96374; 97116; 97163; 97166; 97530; 97535; 99285; A9575

== ENCOUNTER 2024-03-21 22:12 | Inpatient (IN) | payer MEDICARE, OTHER, SELFPAY ==
[2024-03-21] VITALS (10 sets, daily range): BP systolic 111–148; BP diastolic 49–96; BMI 28.8
--- NOTE | 2024-03-21 17:11 | ED.GENMED ---
History of Present Illness
General
Chief Complaint: Fall
Source: spouse
Exam Limitations: none
Time Seen by Provider: 03/21/24 17:04
Nursing documentation reviewed up to this point in time: agreed with
History of Present Illness
History of Present Illness:
78 yr old female with past medical history of multiple myeloma A-fib on Eliquis hypertension chronic back pain brought to the ED by spouse. Patient was recently admitted February 07 for metabolic encephalopathy vitamin B12 deficiency and
changes on EEG. Patient was started on Keppra at that time.
Patient was evaluated by crisis prior to my exam who reports patient was dropped off by spouse and spouse left. Nurses report that patient was recently at [facility] and discharged 3 weeks ago to home but has been does not feel that he can care for
her at home spouse reports pt was discharged from [facility] around 3 wks . She 'was good for a week or two.' reports within the past one week pt is very confused.
Pt has been sliding out of her chair multiple times. He reports at [facility] she was walking around the house naked with family there.
reports he can not pick her up. She is now not able to even use her walker.
He reports he is aware that she has diarrhea however does not know how long she has had this.
Pt presents awake alert able to answer some questions follows commands has no complaints and does not know why she is here.
Past History
Past History
ED Past Medical History: Cancer, HTN and Hypercholesterolemia
ED Past Surgical History: Orthopedic
Social History
Tobacco: Non-smoker
Alcohol: Occasional
Drug: None
Personal:
Living: with family
Employment: Retired
Family History
Family History: Other
Review of Systems
Review of Systems
Allergies reviewed?: Yes
Unable to obtain full review of systems at this time due to: other (pt with change in mental status )
Other source history: family
All Other Systems: ROS reviewed and negative except as documented in HPI and ROS
Constitutional: Reports other (increasing weakness as per )
Respiratory: Reports no symptoms
Cardiac: Reports no symptoms
ABD/GI: Reports diarrhea (as per )
Musculoskeletal: Reports no symptoms
Skin: Reports no symptoms
Neurological: Reports other (increasing confusion as per )
Psychiatric: Reports no symptoms
Phy Exam
General Physical Exam
General Presentation: no apparent distress
General age: appears stated age
General Skin: warm and dry
General Habitus: elderly
General Mental: confused
General Hydration: dry mucous membranes
Cardiovascular Exam
Cardiovascular Exam: regular rate/rhythm, no murmur and normal peripheral pulses
Pulmonary Exam
Pulmonary Exam: lungs clear and no respiratory distress
Gastrointestinal Exam
Gastrointestinal Exam: non tender and soft
Neurological Exam
Neurological Exam: alert and oriented x3
Musculoskeletal Exam
Musculoskeletal Exam: full ROM
Skin Exam
Skin Exam: normal color and warm/dry
Psychiatric Exam
Psychiatric Exam: normal mood/affect
Course
Orders/Labs/Results
Orders:
Orders
03/21/24 17:25
CT Head W/o Iv Contrast Urgent
Comment:
Reason For Exam: change in ms
03/21/24 17:26
Electrocardiogram (*1) Stat
Reason for Study: Other
Other Reason for Exam: chest pain
Cardiac Monitoring- Treatment ONCE
EKG- Treatment ONCE
Straight cath- Treatment ONCE
03/21/24 17:34
Case Management Consult ONCE
Case Management Consult: Other
Requested By:: PHYSICIAN
03/21/24 17:39
Complete Blood Count/With Diff Urgent
Comprehensive Metabolic Panel Urgent
Magnesium Urgent
Comment: ADD ON
Urinalysis Reflex To Culture Urgent
Date Specimen was Collected: 03/21/24
Time Specimen was Collected: 17:31
Urine Microscopic Reflex Cult Urgent
Urine Culture Urgent
ULI Source: U
Specimen Description:
Date Specimen was Collected: 03/21/24
Time Specimen was Collected: 17:31
03/21/24 18:50
Potassium Chloride 10% Elixir [KCl Elixir] 40 meq PO NOW STA
03/21/24 18:52
Potassium Chloride [KCl] 40 meq 0.9% Sodium Chloride 250 ml [Nss] 250 ml IV NOW
03/21/24 18:57
0.9% Sodium Chloride 500 ml [Nss] 500 ml IV BOLUS
03/21/24 19:00
Potassium Chloride [KCl] 40 meq 0.9% Sodium Chloride 250 ml [Nss] 250 ml IV NOW
03/21/24 19:07
US Abdomen Complete/Upper Urgent
Comment:
Reason For Exam: elevated liver enzymes
03/21/24 20:03
Add On- LAB Urgent
Tests Added?: magnesium
Abnormal Lab Results
03/21/24
17:39
RBC 3.14 L 10^6/uL
(4.20-5.40)
Hgb 9.8 L g/dL
(12.0-16.0)
Hct 28.5 L %
(37.0-47.0)
MCH 31.2 H pg
(27.0-31.0)
RDW 15.4 H %
(11.5-14.5)
MPV 10.7 H fL
(7.4-10.4)
Absolute Lymphs (auto) 0.5 L 10^3/uL
(1.2-3.4)
Absolute Monos (auto) 0.8 H 10^3/uL
(0.1-0.6)
Neutrophils % 80.5 H %
(42.2-75.2)
Lymphocytes % 7.2 L %
(20.5-51.1)
Monocytes % 11.8 H %
(1.7-9.3)
Potassium 2.6 L* mmol/L
(3.5-5.1)
Chloride 97 L mmol/L
(98-107)
BUN 36 H mg/dl
(7-17)
Creatinine 1.5 H mg/dL
(0.6-1.0)
Glucose 109 H mg/dl
(70-99)
Total Bilirubin 2.8 H mg/dl
(0.2-1.3)
AST 87 H U/L
(14-36)
ALT 42 H U/L
(0-35)
Alkaline Phosphatase 176 H U/L
(38-126)
Total Protein 5.8 L g/dl
(6.3-8.2)
Albumin 3.1 L g/dl
(3.5-5.0)
Ur Occult Blood Reflex 4+ A
(Negative)
Urine Bilirubin 2+ A
(Negative)
Urine Urobilinogen 3+ A
(Neg - 1+)
Leukocyte Esterase Rfl Trace A
(Negative)
Urine RBC 3-6 A /HPF
(0-2)
Urine WBC (Reflex) 11-15 A /HPF
(0-5)
Urine Bacteria (Reflex) Few A
(Negative)
Urine Albumin (Reflex) 1+ A
(Neg - Trace)
03/21/24 17:39
03/21/24 17:39
Vital Signs
Initial and Last Documented VS:
Initial Vital Signs
Temp Pulse Resp BP Pulse Ox
98.3 F 78 18 148/96 96
03/21/24 13:35 03/21/24 13:35 03/21/24 13:35 03/21/24 13:35 03/21/24 13:35
Last Documented Vital Signs
Temp Pulse Resp BP Pulse Ox
98.5 F 78 22 134/59 95
03/21/24 17:40 03/21/24 20:18 03/21/24 20:18 03/21/24 19:00 03/21/24 19:15
MDM/Problems Addressed
Differential Diagnosis Includes:
Not limited to: Infection, dehydration, less likely intracranial hemorrhage
MDM/Problems Addressed:
As documented patient is a 78-year-old female brought by for evaluation. reports patient is been very confused for the past week. She is weaker and not able to use her walker sliding out of her chair and very confused.
Patient was recently here with toxic metabolic encephalopathy due to low vitamin B12 at the end of January and was admitted.Pt has hx of multiple myeloma, paroxysmal A-fib on Eliquis as well as other medical issues
Patient presents awake alert she is mildly confused follows commands does not know why she is here
Has been as document reports he cannot care for her she is weak not able to use her walker now and more confused. Her potassium however is low at 2.6. Her reports she has had diarrhea he is unsure for how long. Her potassium and magnesium
was ordered her BUN/creatinine are increased patient appears mildly dry on exam. In addition her LFTs are elevated which is new she has no complaints of abdominal pain and her abdomen is soft and nontender ultrasound done and negative. Lipase
added. abd is soft and non tender.
UA reviewed does show 11-15 wbc , in the setting of confusion will treat for UTI there is negative squamous cells.
Patient will require mission for hospital service. Case management will also need to be reconsulted for possible placement and discharge family.
*Radiology
Radiology exam reviewed: radiology read reviewed
*Pulse Oximetry
Patient hypoxic: no
*EKG
Interpreted by ED Provider?: Yes
Interpretation: normal
Heart Rate: 71
Rate: normal
Rhythm: sinus
*Critical Care Note
Total Time (30-74mins, 75-104mins- exclusive of procedures): Not Applicable
Data Reviewed
Review of Other/Old Records Reveals: Labs and Discharge Summary
ED Attending Note
-
Portions of this chart may have been created with voice recognition software.� Occasional wrong word or��sound alike� substitutions may have occurred due to the inherent limitations of voice recognition software.
Discharge Plan
Departure
Patient Disposition: Admit
Date of Disposition: 03/21/24
Time of Disposition: 20:56
Admit to: Med/Surg
Admit to doctor: hospitalist
Presentation/result/management discussed w/ accepting MD/DO: Hospitalist
Patient with high blood pressure during this ER visit?: Yes
Condition: Fair
Covid-19: Not Applicable
Discharge Problem:
Acute alteration in mental status, Weakness, Acute hypokalemia, Transaminitis, Acute UTI
Prescriptions:
No Action
labetalol 200 MG tablet
200 mg PO BID
omeprazole 20 MG tablet,delayed release (DR/EC)
20 mg PO DAILY
Eliquis 5 MG tablet
5 mg PO BID
loperamide 2 mg Capsule
2 mg PO Q8HPRN PRN (Reason: diarrhea)
sulfamethoxazole-trimethoprim [Bactrim] 400-80 mg Tablet
1 tab PO DAILY
Patient Comments:
no pharmacy fills
venlafaxine 25 mg Tablet
50 mg PO BID
diltiazem HCl 120 mg Tablet
120 mg PO DAILY
tizanidine 2 mg Capsule
2 mg PO BIDPRN PRN (Reason: muscle spasms)
pregabalin 50 mg Capsule
50 mg PO BID
lenalidomide [Revlimid] 5 mg Capsule
5 mg PO USEASDIRECTD
Rx Instructions:
1 cap for 21 days, then off x 7 days
levothyroxine [Synthroid] 100 mcg tablet
100 mcg PO DAILY
rosuvastatin 5 mg tablet
5 mg PO DAILY
levetiracetam [Keppra] 500 mg tablet
500 mg PO BID Qty: 60 0RF
tramadol 50 mg tablet
25 mg PO Q8HPRN PRN (Reason: severe pain) Qty: 10 0RF
cyanocobalamin (vitamin B-12) 1,000 mcg Tablet
1,000 mcg PO DAILY
oxycodone 5 mg Tablet
2.5 mg PO TIDPRN PRN (Reason: severe pain)
Patient Comments:
stop gabapentin
Referrals:
Espinoza Kaplan I., DO [Family Provider] -
Interventions
Interventions:
*General Assessment Last Done: 03/21/24 13:35
*Neglect/Abuse Screening Last Done: 03/21/24 18:49
ED- Fall Risk Assessment Last Done: 03/21/24 18:49
*ED COVID-19 Vaccine History Last Done: 03/21/24 18:49
ED-Musculoskeletal Assessment Last Done: 03/21/24 18:49
ED- Neurological Assessment Last Done: 03/21/24 18:49
ED-Skin Assessment Last Done: 03/21/24 18:49
Discharge Date and Time
Print Language: BRAZILIAN
--- NOTE | 2024-03-21 17:15 | CM ---
CM was consulted by director of midwifery/staff midwife. CM reviewed medical records. It was noted that patient was discharged to [facility] during previous admission. CM spoke with patient's who confirmed that patient was discharged from [facility] about three weeks ago.
Patient's stated that patient has been declining in ability to care for herself and he reports that patient has been 'slipping out of the chair' multiple time where he has had to call 911 for a lift assist. Patient's further reports
that patient was 'walking around naked' during a family Thanksgiving celebration. reports that he feels that due to the multiple falls and patient's confusion he can no longer care for her at home.
Patient's further reports that this confusion has happened in the past about a year ago.
Patient's stated that he has to leave to care for the family pets. CM updated bedside RN and ED LITHOGRAPHIC RETOUCHER APPRENTICE.
CM will remain available as needed.
[2024-03-21 17:48] LABS: % Basophils 0.2 % (0-2); % Immature Granulocytes 0.3 % (0-0.5); % Lymphocytes 7.2 % (20.5-51.1); % Monocytes 11.8 % (1.7-9.3); % Neutrophils 80.5 % (42.2-75.2); Absolute Lymphocytes 0.5 10^3/uL (1.2-3.4); Absolute Monocytes 0.8 10^3/uL (0.1-0.6); Absolute Neutrophils 5.2 10^3/uL (1.4-6.5); Hematocrit 28.5 % (37.0-47.0); Hemoglobin 9.8 g/dL (12.0-16.0); Mean Corp Hgb Conc. 34.4 g/dL (33.0-37.0); Mean Corpuscular Hgb 31.2 pg (27.0-31.0); Mean Corpuscular Volume 90.8 fL (81.0-99.0); Mean Platelet Volume 10.7 fL (7.4-10.4); Nucleated Red Blood Cells % 0 %; Platelet Count 209 10^3/uL (130-400); Red Blood Cell Count 3.14 10^6/uL (4.20-5.40); Red Cell Dist. Width 15.4 % (11.5-14.5); White Blood Cell Count 6.4 10^3/uL (4.8-10.8)
[2024-03-21 18:07] LABS: ALT (SGPT) 42 U/L (0-35); AST (SGOT) 87 U/L (14-36); Albumin 3.1 g/dl (3.5-5.0); Alkaline Phosphatase 176 U/L (38-126); Blood Urea Nitrogen 36 mg/dl (7-17); Calcium 9.2 mg/dl (8.4-10.2); Carbon Dioxide 30 mmol/L (22-30); Chloride 97 mmol/L (98-107); Estimated Creatinine Clearance 32 ml/min; Glucose 109 mg/dl (70-99); Potassium 2.6 mmol/L (3.5-5.1); Sodium 137 mmol/L (135-145); Total Bilirubin 2.8 mg/dl (0.2-1.3); Total Protein 5.8 g/dl (6.3-8.2); eGFR 35.23
--- NOTE | 2024-03-21 18:07 | EDRN ---
potassium came back at 2.6, this RN notified provider
[2024-03-21 18:25] LABS: Urine Albumin 1+ (Neg - Trace); Urine Bilirubin 2+ (Negative); Urine Character Slightly Cloudy (Clear); Urine Color Amber; Urine Glucose Negative (Negative); Urine Ketone Negative (Negative); Urine Leukocyte Trace (Negative); Urine Nitrite Negative (Negative); Urine Occult Blood 4+ (Negative); Urine Specific Gravity 1.025 (<1.030); Urine Urobilinogen 3+ (Neg - 1+)
--- NOTE | 2024-03-21 18:47 | EDRN ---
the pt came back from CT scan, the pt is currently on the monitor and is currently in NSR in the 70's, this RN notified Ramona Osman ABA TUTOR again about the pts potassium and no new orders have been received, no c/o chest pain, no c/o SOB, the pt is
resting in stretcher in the lowest position, side rails up x2, call mao within reach, HOB elevated, no s/s of distress noted, will continue to monitor the pt closely
[2024-03-21 18:49] LABS: Urine Squamous Cell 0-2 /LPF (Few)
[2024-03-21 18:50] LABS: Urine Amorphous Seen; Urine Bacteria Few (Negative); Urine Granular Cast >15 /LPF (0)
--- NOTE | 2024-03-21 18:52 | EDRN ---
Ramona Osman [employer] [facility] is currently placing orders for medication to correct the pts potsssium
[2024-03-21] MEDS: KCL ELIXIR 40 MEQ PO (19:01)
[2024-03-21] MEDS: NSS 500 IV (19:01)
[2024-03-21] MEDS: KCL 270 MEQ IV (19:10)
[2024-03-21] MEDS: ROCEPHIN 1000 MG IV (20:57)
[2024-03-21 21:02] LABS: Lipase 29 U/L (23-300)
--- NOTE | 2024-03-21 21:44 | HPS.HSE ---
Family Physician
-
Family Physician: Espinoza Kaplan
Chief Complaint
-
Confusion, Weakness, Diarrhea
History of Present Illness
Patient is a 78y F with PMH significant for multiple myeloma, A-Fib and recent admission for TME / B12 deficiency and possible seizures who presents to ED for evaluation of confusion, weakness and diarrhea. Patient was admitted to from 02/07
- 02/15 for confusion. Evaluation at that time noted significant B12 deficiency and EEG concerning for possible seizures. Patient with chronically abnormal brain MRI including severe white matter disease / atrophy. Patient was started on Keppra
and B12 supplementation during that stay and discharged to SNF. Since her return home, has noted that she has been very weak and unable to ambulate / care for herself. He states that she has been having diarrhea - though he is not sure of
the duration / frequency / etc. Today noted that he could no longer care for the patient at home.
In the ED, patient is asleep. She will open eyes to name but does not answer questions appropriately nor follow commands. She is unable to contribute any additional information to this history.
Medical History
Past Medical History
Past Medical History: Reports Other
Additional Past Medical History:
Multiple myeloma (follows at [facility])
A-fib on Eliquis
Hypertension
B12 Deficiency
Chronic Encephalopathy
Chronic Pain Syndrome
Multi-Infarct Dementia
Possible Seizure Disorder
Past Surgical History: Reports Other
Additional Past Surgical History:
spine surgery in the past
Social History
Tobacco: Non-smoker
Alcohol: None
Personal:
Living: With Family
Family History
Family History: Not pertinent
Allergies / Home Medications
Allergies reflects when Allergies were last updated in [employer].
Home Medications with original date entered in [employer]
Allergy/Medication List:
Allergies
Allergy/AdvReac Type Severity Reaction Status Date / Time
atorvastatin calcium Allergy Unknown Verified 03/21/24 13:35
[From Lipitor]
Home Medications
apixaban 5 mg tablet (Eliquis) 5 mg PO BID Blood Clot Prevention/Tx 02/12/18
labetalol 200 mg tablet 200 mg PO BID Blood Pressure 02/12/18
omeprazole 20 mg tablet,delayed release 20 mg PO DAILY Gastrointestinal Issue 02/12/18
diltiazem HCl 120 mg tablet 120 mg PO DAILY Heart Disease/Condition 02/08/24
lenalidomide 5 mg capsule (Revlimid) 5 mg PO USEASDIRECTD Multiple myeloma 02/08/24
levothyroxine 100 mcg tablet (Synthroid) 100 mcg PO DAILY Thyroid 02/08/24
loperamide 2 mg capsule 2 mg PO Q8HPRN PRN diarrhea 02/08/24
pregabalin 50 mg capsule 50 mg PO BID Pain 02/08/24
rosuvastatin 5 mg tablet 5 mg PO DAILY High Cholesterol 02/08/24
sulfamethoxazole 400 mg-trimethoprim 80 mg tablet (Bactrim) 1 tab PO DAILY prophylaxis 02/08/24
tizanidine 2 mg capsule 2 mg PO BIDPRN PRN muscle spasms 02/08/24
venlafaxine 25 mg tablet 50 mg PO BID chronic pain 02/08/24
levetiracetam 500 mg tablet (Keppra) 500 mg PO BID #60 tabs 02/16/24
tramadol 50 mg tablet 25 mg (1/2 x 50 mg) PO Q8HPRN PRN severe pain #10 tabs 02/16/24
cyanocobalamin (vitamin B-12) 1,000 mcg tablet 1,000 mcg PO DAILY 03/21/24
oxycodone 5 mg tablet 2.5 mg PO TIDPRN PRN severe pain 03/21/24
Review of Systems
-
Unable to obtain full review of systems at this time due to: Patient Non-verbal
Physical Exam
Vital Signs
Vital Signs
Temp Pulse Resp BP Pulse Ox
98.5 F 87 20 121/52 94
12/01/24 17:40 03/21/24 21:00 03/21/24 21:00 03/21/24 21:00 03/21/24 21:00
Physical Exam
General: Other (78y F sleeping comfortably. Opens eyes briefly but falls quickly back to sleep. Does not answer questions or follow commands.)
HEENT: Other (Dry MM. Pupils sluggish but reactive.)
Respiratory: Other (Decreased at bases - otherwise clear.)
Cardiac: S1/S2 and Regular Rhythm; No Murmur
GI: Soft, Non Tender, Non Distended and Normal Bowel Sounds
Musculoskeletal: No Clubbing, No Cyanosis and Other (1+ edema of the lower extremities.)
Neuro: Other (Lethargic / no evident focal deficits. No apparent seizure activity.)
Laboratory Results
-
03/21/24 17:39
03/21/24 17:39
Laboratory Results
Total Bilirubin 2.8 mg/dl (0.2-1.3) H 03/21/24 17:39
AST 87 U/L (14-36) H 03/21/24 17:39
ALT 42 U/L (0-35) H 03/21/24 17:39
Alkaline Phosphatase 176 U/L (38-126) H 03/21/24 17:39
Lipase 29 U/L (23-300) 03/21/24 17:39
Impression/Plan
-
A/P: Patient is a 78y F with PMH significant for multiple myeloma, vascular dementia, B12 deficiency and possible seizure disorder who presents to ED for evaluation of confusion, weakness and diarrhea.
Acute on Chronic TME
Vascular Dementia
Possible Seizure Disorder
- Admit for further evaluation and treatment.
- Patient lethargic / more confused and weak per .
- Diarrheal illness that is ill-defined / of unclear duration.
- Multiple metabolic abnormalities at present.
- Recent evaluation / work-up as noted during prior admission.
- Treat potential infectious process as noted below, correct metabolic abnormalities as noted.
- Hold sedating medications - of which patient takes several.
- Follow fro any changes in mental status or any new / worsening symptoms.
- No overt seizure activity appreciated. ? repeat EEG for confirmation.
- Continue Keppra for now.
Gastroenteritis
Hypokalemia
Hypomagnesemia
CECELIA
- Check stool studies, Norovirus, etc.
- SCr 1.5 compared to recent baseline of 0.8. Likely due to volume losses / poor intake.
- IVF support and adjust as needed for electrolyte correction.
- Follow for improvement in mental state coincident with correction of metabolic issues.
- Hold PPI.
Paroxysmal Atrial Fibrillation
- Stable. Continue current medications with holding parameters.
- Continue Eliquis for stroke risk reduction.
Benign Hypertension
- Stable. Continue usual regimen with holding parameters.
Hypothyroidism
- Continue T4 supplementation.
Chronic Back Pain
- Hold sedating meds used for pain control including oxycodone, tramadol and tizanidine.
- Follow for improvement in mental status.
DVT Prophylaxis: On Eliquis
Code Status: Full
[2024-03-21 21:52] LABS: Vitamin B12 345 pg/ml (239-931)
[2024-03-21] MEDS: MAGNESIUM SULFATE 50 IV (22:08)
[2024-03-21] MEDS: LR 1000 IV (23:28)
[2024-03-22] VITALS (8 sets, daily range): BP systolic 105–175; BP diastolic 49–77; PULSE 76–80; O2SAT 94–95
[2024-03-22 01:18] LABS: Free T4 1.13 ng/dl (0.78-2.19)
[2024-03-22 06:37] LABS: Hematocrit 28.3 % (37.0-47.0); Hemoglobin 9.7 g/dL (12.0-16.0); Mean Corp Hgb Conc. 34.3 g/dL (33.0-37.0); Mean Corpuscular Hgb 31.5 pg (27.0-31.0); Mean Corpuscular Volume 91.9 fL (81.0-99.0); Mean Platelet Volume 10.6 fL (7.4-10.4); Platelet Count 207 10^3/uL (130-400); Red Blood Cell Count 3.08 10^6/uL (4.20-5.40); Red Cell Dist. Width 15.9 % (11.5-14.5); White Blood Cell Count 6.6 10^3/uL (4.8-10.8)
[2024-03-22 07:06] LABS: ALT (SGPT) 37 U/L (0-35); AST (SGOT) 62 U/L (14-36); Albumin 2.6 g/dl (3.5-5.0); Alkaline Phosphatase 183 U/L (38-126); Blood Urea Nitrogen 29 mg/dl (7-17); Carbon Dioxide 30 mmol/L (22-30); Chloride 100 mmol/L (98-107); Direct Bilirubin 1.8 mg/dl (0.0-0.4); Estimated Creatinine Clearance 36 ml/min; Glucose 105 mg/dl (70-99); Magnesium 1.5 mg/dl (1.6-2.3); Sodium 138 mmol/L (135-145); Total Bilirubin 2.3 mg/dl (0.2-1.3); Total Protein 5.1 g/dl (6.3-8.2); eGFR 46.05
[2024-03-22] MEDS: LR 1000 IV ×2 (07:24→19:41)
--- NOTE | 2024-03-22 08:48 | VNURNOTE ---
Chart reviewed. Patient is current with [facility] nursing, PT, OT, [employer]. Will continue to follow hospital course and DC plans.
[2024-03-22] MEDS: MAGNESIUM SULFATE 100 IV (10:03)
[2024-03-22] MEDS: KCL 40 MEQ PO ×2 (10:06→12:17)
[2024-03-22] MEDS: LYRICA 50 MG PO ×2 (10:06→19:36)
[2024-03-22] MEDS: TRANDATE 200 MG PO ×2 (10:07→19:35)
[2024-03-22] MEDS: CARDIZEM 120 MG PO (10:07)
[2024-03-22] MEDS: SYNTHROID 100 MCG PO (10:07)
[2024-03-22] MEDS: VITAMIN B-12 1000 MCG PO (10:07)
[2024-03-22] MEDS: EFFEXOR 50 MG PO ×2 (10:07→19:36)
[2024-03-22] MEDS: ELIQUIS 5 MG PO ×2 (10:07→19:36)
[2024-03-22] MEDS: KEPPRA 500 MG PO ×2 (10:07→19:35)
--- NOTE | 2024-03-22 11:08 | PTCARENOTE ---
Per Magui, [employer] Driver, patient can be placed on standard precautions d/t C. diff result is negative.
--- NOTE | 2024-03-22 11:12 | W.PN.HOSP.TC ---
Today's Communication/Plan
-
Replete lytes
dc tramadol-hx of seizures
PT/OT-SNF
Monitor diet tolerance
Assessment / Plan
Assessment / Plan
A/P: Patient is a 78y F with PMH significant for multiple myeloma, vascular dementia, B12 deficiency and possible seizure disorder who presents to ED for evaluation of confusion, weakness and diarrhea.
Acute on Chronic TME
Vascular Dementia
Possible Seizure Disorder
- Diarrheal illness that is ill-defined / of unclear duration.
- Multiple metabolic abnormalities at present.
- Recent evaluation / work-up as noted during prior admission.
- Treat potential infectious process as noted below, correct metabolic abnormalities as noted.
- Hold sedating medications - of which patient takes several.
- Follow fro any changes in mental status or any new / worsening symptoms.
- No overt seizure activity appreciated. ? repeat EEG for confirmation.
- Continue Keppra for now.
Gastroenteritis
Hypokalemia
Hypomagnesemia
CECELIA
- Check stool studies, Norovirus, etc. Neg for cdiff and norovirus
- SCr 1.5 compared to recent baseline of 0.8. Likely due to volume losses / poor intake. Cr improving
- IVF support and adjust as needed for electrolyte correction.
- Follow for improvement in mental state coincident with correction of metabolic issues.
- Hold PPI.
Paroxysmal Atrial Fibrillation
- Stable. Continue current medications with holding parameters.
- Continue Eliquis for stroke risk reduction.
Benign Hypertension
- Stable. Continue usual regimen with holding parameters.
Hypothyroidism
- Continue T4 supplementation.
Chronic Back Pain
- Hold sedating meds - tizanidine. Restart oxycodone. DC tramadol with history of seizures
- Follow for improvement in mental status.
DVT Prophylaxis: On Eliquis
Code Status: Full
PT/OT-SNF. CM aware.
Anticipated Discharge: Within 24 hours
Subjective/Interval History
-
Date of Service: March 22, 2024
Sitting in chair
feeling better
tolerated breakfast
no nausea or vomiting or diarrhea currently
Objective Data
-
Labs:
Laboratory Results
03/22/24
06:03
WBC 6.6
Hgb 9.7 L
Hct 28.3 L
Plt Count 207
Sodium 138
Potassium 3.0 L
Chloride 100
Carbon Dioxide 30
BUN 29 H
Creatinine 1.2 H
Glucose 105 H
Calcium 9.0
Total Bilirubin 2.3 H
AST 62 H
ALT 37 H
Alkaline Phosphatase 183 H
Vital Signs:
Vital Signs
Temp Pulse Resp BP Pulse Ox
98.6 F 86 17 160/77 97
03/22/24 07:58 03/22/24 07:58 03/22/24 07:58 03/22/24 07:58 03/22/24 07:58
I&O
03/21/24 03/22/24 03/23/24
06:59 06:59 06:59
Intake Total 480 / 480
Output Total 300 / 300
Balance 180 / 180
Physical Exam
-
General: No Apparent Distress and Appears Chronically Ill
HEENT: Normocephalic and Atraumatic
Respiratory: Clear to Auscultation; Negative Wheezes
Cardiac: Regular Rhythm
GI: Soft, Nontender and Nondistended
Genito-urinary: No Costovertebral Tender
Musculoskeletal: No Edema
Neuro: Awake, Alert, AO x 3, No Motor Deficits and Nonfocal/Grossly Intact; Negative Slurred Speech
Psych: Calm
Data Reviewed
-
Total Time Spent with Patient (in minutes): 55
--- NOTE | 2024-03-22 11:48 | CM ---
Patient seen at bedside.
IA completed
PT/OT recommend SNF
Patient agreeable - prefer [facility]
Referrals placed in [facility]
Lives at home with in a 2 story home, 1 step to enter, flight to 2nd floor
PLOF: ambulates with walker
DME: Has stair glide, wheelchair, walker, shower chair, grab bars
Patient current with [facility] - notified liaison SNF recommended
Spoke with Brad-agreeable with SNF
PCP: Espinoza Kaplan
Pharmacy: [facility]
PLAN: SNF, pending bed availability
--- NOTE | 2024-03-22 16:24 | EEG.RPT ---
Electroencephalogram Report
Recording
Date of EE03/22/24
Type of EEG: Routine
Length of EEG recordin minutes
Done with Video Recording: Yes
Patient Status: Inpatient
Recording Conditions: Awake and Drowsy
Hyperventilation Performed: No
Photic Stimulation Performed: Yes
Report
LESS THAN 1 HOUR EEG INTERPRETATION:
Unremarkable EEG for age
CLINICAL CORRELATION:
A normal EEG does not rule out a diagnosis of epilepsy. If clinical suspicion for seizure persists, a prolonged recording may be warranted.
Clinical correlation is advised.
METHODS:
A 21 channel digitized electroencephalogram (EEG) was performed using the 10/20 international system of electrode placement and one-lead of ECG recorded. The Recognia quantitative EEG system was utilized.
ELECTROENCEPHALOGRAPHER IMPRESSION(S):
Quality of study
Good
Background
There was an unremarkable anterior-posterior voltage gradient of alpha frequency.
With eye opening the background activity changed to a low voltage mixture of frequencies.
There were no significant asymmetries of background activity noted.
Sleep
Drowsiness present
Hyperventilation
No activation
Photic Stimulation
No activation
ECG
Normal sinus rhythm
[2024-03-22] MEDS: VISBIOME 2 CAP PO (19:35)
[2024-03-22] MEDS: ROCEPHIN 1000 MG IV (21:51)
[2024-03-22] MEDS: STERILE WATER FOR INJECTION 10 ML IV (21:51)
[2024-03-23 03:30] VITALS: BP 138/69
[2024-03-23] MEDS: LR 1000 IV (04:44)
[2024-03-23 05:13] VITALS: BMI 31.2
[2024-03-23 07:05] VITALS: BP 152/70
[2024-03-23] MEDS: SYNTHROID 100 MCG PO (07:35)
[2024-03-23 08:36] LABS: Blood Urea Nitrogen 21 mg/dl (7-17); Calcium 8.6 mg/dl (8.4-10.2); Carbon Dioxide 29 mmol/L (22-30); Chloride 102 mmol/L (98-107); Estimated Creatinine Clearance 49 ml/min; Glucose 91 mg/dl (70-99); Magnesium 1.7 mg/dl (1.6-2.3); Potassium 3.6 mmol/L (3.5-5.1); Sodium 139 mmol/L (135-145); eGFR > 60.00
[2024-03-23 08:38] LABS: % Basophils 0.3 % (0-2); % Eosinophils 0.5 % (0-6); % Immature Granulocytes 0.7 % (0-0.5); % Monocytes 8.8 % (1.7-9.3); % Neutrophils 76.7 % (42.2-75.2); Absolute Lymphocytes 0.8 10^3/uL (1.2-3.4); Absolute Monocytes 0.5 10^3/uL (0.1-0.6); Absolute Neutrophils 4.4 10^3/uL (1.4-6.5); Hematocrit 24.2 % (37.0-47.0); Hemoglobin 8.2 g/dL (12.0-16.0); Mean Corp Hgb Conc. 33.9 g/dL (33.0-37.0); Mean Corpuscular Hgb 30.9 pg (27.0-31.0); Mean Corpuscular Volume 91.3 fL (81.0-99.0); Mean Platelet Volume 10.9 fL (7.4-10.4); Nucleated Red Blood Cells % 0 %; Platelet Count 220 10^3/uL (130-400); Red Blood Cell Count 2.65 10^6/uL (4.20-5.40); Red Cell Dist. Width 15.9 % (11.5-14.5); White Blood Cell Count 5.8 10^3/uL (4.8-10.8)
[2024-03-23] MEDS: VISBIOME 2 CAP PO (10:19)
[2024-03-23] MEDS: LYRICA 50 MG PO ×2 (10:19→19:54)
[2024-03-23] MEDS: CARDIZEM 120 MG PO (10:19)
[2024-03-23] MEDS: VITAMIN B-12 1000 MCG PO (10:19)
[2024-03-23] MEDS: EFFEXOR 50 MG PO ×2 (10:19→19:54)
[2024-03-23] MEDS: KEPPRA 500 MG PO ×2 (10:19→19:54)
[2024-03-23] MEDS: ELIQUIS 5 MG PO ×2 (10:19→19:54)
[2024-03-23] MEDS: TRANDATE 200 MG PO ×2 (10:19→19:54)
--- NOTE | 2024-03-23 10:20 | CM ---
Addendum entered by Huma Bhatia 03/23/24 15:56:
awaiting financial application.
Addendum entered by Huma Bhatia 03/23/24 14:13:
Private pay discussed with dayna Rowley, Financial application for [facility] emailed to [email or web address]. She will review with her father.
Addendum entered by Huma Bhatia 03/23/24 12:27:
Bed available, [facility]
Report# [phone]

ambulance transport forms on chart.
Addendum entered by Huma Bhatia 03/23/24 11:03:
IMM completed
Original Note:
Spoke with daughter Halley this am.
Halley requesting Neurology consultation or to speak with MD, TT to MD.
Per Halley her dad has some memory problems and not sure he is telling her everything.
Halley is in agreement for skilled rehab at [facility].
Spoke with patient bedside, she is also in agreement for skilled rehab.
Await bed availability, TT to liaison.
Patient will require ambulance transport.
Plan: skilled rehab once bed available.
[2024-03-23 11:00] VITALS: BP 121/83
--- NOTE | 2024-03-23 11:01 | W.PN.HOSP.TC ---
Today's Communication/Plan
-
await placement
Imodium if needed
Stop further IVF
Assessment / Plan
Assessment / Plan
A/P: Patient is a 78y F with PMH significant for multiple myeloma, vascular dementia, B12 deficiency and possible seizure disorder who presents to ED for evaluation of confusion, weakness and diarrhea.
Acute TME
Suspected cognitive impairment
Possible Seizure Disorder
Hx of CVA
Weakness 2/2 dehydration
- Multiple metabolic abnormalities at present.
- Recent evaluation / work-up as noted during prior admission.
- Treat potential infectious process as noted below, correct metabolic abnormalities as noted.
- No overt seizure activity appreciated.
- Continue Keppra for now.
- CT head with -Findings again seen compatible with diffuse cortical atrophy with nonspecific white matter changes as described above.
Gastroenteritis
Hypokalemia
Hypomagnesemia
CECELIA
- Check stool studies, Norovirus, etc. Neg for cdiff and norovirus
- SCr 1.5 compared to recent baseline of 0.8. Likely due to volume losses / poor intake. Cr improved
- IVF support and adjust as needed for electrolyte correction. DC further IVF
- Follow for improvement in mental state coincident with correction of metabolic issues.
- Hold PPI.
Paroxysmal Atrial Fibrillation
- Stable. Continue current medications with holding parameters.
- Continue Eliquis for stroke risk reduction.
Benign Hypertension
- Stable. Continue usual regimen with holding parameters.
Hypothyroidism
- Continue T4 supplementation.
Chronic Back Pain
- Restart oxycodone. DC tramadol with history of seizures .DC tizanidine.
DVT Prophylaxis: On Eliquis
Code Status: Full
PT/OT-SNF. CM aware.
Updated daughter over the phone in details.
Anticipated Discharge: Today
Subjective/Interval History
-
Date of Service: March 23, 2024
sitting in chair
tolerating diet
Objective Data
-
Labs:
Laboratory Results
03/23/24
05:54
WBC 5.8
Hgb 8.2 L
Hct 24.2 L
Plt Count 220
Sodium 139
Potassium 3.6
Chloride 102
Carbon Dioxide 29
BUN 21 H
Creatinine 0.9
Glucose 91
Calcium 8.6
Vital Signs:
Vital Signs
Temp Pulse Resp BP Pulse Ox
98.8 F 67 14 146/61 96
03/23/24 07:05 03/23/24 10:19 03/23/24 07:05 03/23/24 10:19 03/23/24 07:05
I&O
03/22/24 03/23/24 03/24/24
06:59 06:59 06:59
Intake Total 480 / 480 3800 / 3800
Output Total 300 / 300
Balance 180 / 180 3800 / 3800
Physical Exam
-
General: No Apparent Distress and Appears Chronically Ill
HEENT: Normocephalic and Atraumatic
Respiratory: Clear to Auscultation; Negative Wheezes
Cardiac: Regular Rhythm
GI: Soft, Nontender and Nondistended
Genito-urinary: No Costovertebral Tender
Musculoskeletal: No Edema
Neuro: Awake, Alert, AO x 3, No Motor Deficits and Nonfocal/Grossly Intact; Negative Slurred Speech
Psych: Calm
Data Reviewed
-
Total Time Spent with Patient (in minutes): 55
[2024-03-23 11:55] VITALS: BP 121/83
--- NOTE | 2024-03-23 14:24 | PTCARENOTE ---
club car attendant and IV removed prior to knowing discharge will be held today. Spoke w/ caroline Tamayo transferring patient to med/surg level of care so she will no longer require IV access.
[2024-03-23 15:00] VITALS: BP 147/58
[2024-03-23] MEDS: ROCEPHIN 1000 MG IV (22:31)
[2024-03-23] MEDS: STERILE WATER FOR INJECTION 10 ML IV (22:31)
[2024-03-23 23:00] VITALS: BP 157/64
[2024-03-24 06:00] VITALS: BMI 30.6
[2024-03-24 07:00] VITALS: BP 168/78
[2024-03-24 07:16] LABS: % Basophils 0.6 % (0-2); % Eosinophils 1.9 % (0-6); % Immature Granulocytes 0.8 % (0-0.5); % Lymphocytes 14.7 % (20.5-51.1); % Monocytes 8.7 % (1.7-9.3); % Neutrophils 73.3 % (42.2-75.2); Absolute Eosinophils 0.1 10^3/uL (0-0.7); Absolute Lymphocytes 0.7 10^3/uL (1.2-3.4); Absolute Monocytes 0.4 10^3/uL (0.1-0.6); Absolute Neutrophils 3.5 10^3/uL (1.4-6.5); Hematocrit 25.7 % (37.0-47.0); Hemoglobin 8.7 g/dL (12.0-16.0); Mean Corp Hgb Conc. 33.9 g/dL (33.0-37.0); Mean Corpuscular Hgb 31.2 pg (27.0-31.0); Mean Corpuscular Volume 92.1 fL (81.0-99.0); Mean Platelet Volume 10.7 fL (7.4-10.4); Nucleated Red Blood Cells % 0 %; Platelet Count 225 10^3/uL (130-400); Red Blood Cell Count 2.79 10^6/uL (4.20-5.40); White Blood Cell Count 4.8 10^3/uL (4.8-10.8)
[2024-03-24 07:35] LABS: Blood Urea Nitrogen 19 mg/dl (7-17); Calcium 8.8 mg/dl (8.4-10.2); Carbon Dioxide 31 mmol/L (22-30); Chloride 102 mmol/L (98-107); Estimated Creatinine Clearance 54 ml/min; Glucose 90 mg/dl (70-99); Magnesium 1.3 mg/dl (1.6-2.3); Potassium 3.2 mmol/L (3.5-5.1); Sodium 141 mmol/L (135-145); eGFR > 60.00
[2024-03-24] MEDS: KEPPRA 500 MG PO (08:11)
[2024-03-24] MEDS: VISBIOME 2 CAP PO (08:11)
[2024-03-24] MEDS: CARDIZEM 120 MG PO (08:15)
[2024-03-24] MEDS: TRANDATE 200 MG PO (08:15)
[2024-03-24] MEDS: EFFEXOR 50 MG PO (08:15)
[2024-03-24] MEDS: SYNTHROID 100 MCG PO (08:15)
[2024-03-24] MEDS: LYRICA 50 MG PO (08:16)
[2024-03-24] MEDS: ELIQUIS 5 MG PO (08:16)
[2024-03-24] MEDS: VITAMIN B-12 1000 MCG PO (08:16)
[2024-03-24] MEDS: KCL 40 MEQ PO (08:16)
[2024-03-24] MEDS: MAGNESIUM SULFATE 50 IV (08:27)
--- NOTE | 2024-03-24 09:27 | CM ---
Addendum entered by Yen Gipson 03/24/24 10:59:
Spoke with daughter Halley & notified transportation to [facility] today at 2pm
Addendum entered by Yen Gipson 03/24/24 10:56:
IMM explained & signed. In chart
2pm meat pickler for [facility] - Notified Viji at [facility]
Original Note:
Patient seen at bedside.
Spoke with Viji at [facility] - bed available today
tt Dr. Reilly
Discussed with with patient
PLAN: [facility]
Report# [phone]

Transportation forms on chart
--- NOTE | 2024-03-24 10:21 | W.PN.HOSP.TC ---
Today's Communication/Plan
-
replete kcl/mag
po kcl
repeat bmp
OP onc f/u
dc tramadol/tizanidine
Assessment / Plan
Assessment / Plan
A/P: Patient is a 78y F with PMH significant for multiple myeloma, vascular dementia, B12 deficiency and possible seizure disorder who presents to ED for evaluation of confusion, weakness and diarrhea.
Acute TME
Suspected cognitive impairment
Possible Seizure Disorder
Hx of CVA
Weakness 2/2 dehydration
- Multiple metabolic abnormalities at present.
- Recent evaluation / work-up as noted during prior admission.
- Treat potential infectious process as noted below, correct metabolic abnormalities as noted.
- No overt seizure activity appreciated.
- Continue Keppra for now.
- CT head with -Findings again seen compatible with diffuse cortical atrophy with nonspecific white matter changes as described above.
- Recent neurological evaluation recommended outpatient neuropsychological testing. Encourage appropriate sleep/wake cycles; adequate daytime light exposure, minimize daytime napping, minimize nighttime awakenings.
Gastroenteritis
Hypokalemia
Hypomagnesemia
CECELIA
- Check stool studies, Norovirus, etc. Neg for cdiff and norovirus
- SCr 1.5 compared to recent baseline of 0.8. Likely due to volume losses / poor intake. Cr improved
- IVF support and adjust as needed for electrolyte correction. DC further IVF
- Follow for improvement in mental state coincident with correction of metabolic issues.
Paroxysmal Atrial Fibrillation
- Stable. Continue current medications with holding parameters.
- Continue Eliquis for stroke risk reduction.
Benign Hypertension
- Continue with labetalol. Persistently elevated can be started on additional agents.
Hypothyroidism
- Continue T4 supplementation.
Chronic Back Pain
- Restart oxycodone. DC tramadol with history of seizures .DC tizanidine.
DVT Prophylaxis: On Eliquis
Code Status: Full
PT/OT-SNF.
Updated daughter over the phone in details on 03/23/24
More than 30 minutes spent in discharge including
Final examination of the patient
Summarizing hospital stay
Instructions for continuing care to all relevant caregivers
Preparation of discharge records, prescriptions, and referral forms
Total time spent (in minutes): 50
.
Anticipated Discharge: Today
Subjective/Interval History
-
Date of Service: March 24, 2024
No complaints
Tolerating diet
Denies abdominal pain, nausea and vomiting
Objective Data
-
Labs:
Laboratory Results
03/24/24
06:14
WBC 4.8
Hgb 8.7 L
Hct 25.7 L
Plt Count 225
Sodium 141
Potassium 3.2 L
Chloride 102
Carbon Dioxide 31 H
BUN 19 H
Creatinine 0.8
Glucose 90
Calcium 8.8
Vital Signs:
Vital Signs
Temp Pulse Resp BP Pulse Ox
97.2 F 70 18 168/78 97
03/24/24 07:00 03/24/24 08:15 03/24/24 07:00 03/24/24 07:00 03/24/24 07:00
I&O
03/23/24 03/24/24 03/25/24
06:59 06:59 06:59
Intake Total 3800 / 3800 1700 / 1700
Balance 3800 / 3800 1700 / 1700
Physical Exam
-
General: No Apparent Distress and Appears Chronically Ill
HEENT: Normocephalic and Atraumatic
Respiratory: Clear to Auscultation; Negative Wheezes
Cardiac: Regular Rhythm
GI: Soft, Nontender and Nondistended
Genito-urinary: No Costovertebral Tender
Musculoskeletal: No Edema
Neuro: Awake, Alert, AO x 3, No Motor Deficits and Nonfocal/Grossly Intact; Negative Slurred Speech
Psych: Calm
--- NOTE | 2024-03-24 10:25 | W.DCSUMMARY ---
Discharge Summary
Discharge Data
Date of Admission: 03/21/24
Date of Discharge: 03/24/24
-
Pending Results: No
Hospital Course
78y F with PMH significant for multiple myeloma, Suspected cognitive impairment, B12 deficiency ,Hx of CVA, and possible seizure disorder who presents to ED for evaluation of confusion, weakness and diarrhea. Upon admission patient was found to
have a severe hypokalemia hypomagnesemia and elevated creatinine. Patient was started on aggressive IV fluid resuscitation. Stool studies were checked and found to be negative. Patient potassium and magnesium was repleted. Patient underwent CT
of the head which showed Findings again seen compatible with diffuse cortical atrophy with nonspecific white matter changes as described above. Patient also underwent EEG was negative for overt seizure-like activity. Keppra home dose was
continued. Patient also on multiple sedating medication and tramadol and tizanidine was discontinued. Patient was recommended to avoid tramadol as history of seizure. Patient mentation improved and she was back to baseline mentation. Patient
creatinine stabilized normal limit. Patient was eval by physical and Occupational Therapy will be discharged to [facility].
Discharge Plan
-
Patient Disposition: Retirement/SNF
Discharge Diagnosis/Procedures: Acute toxic metabolic encephalopathy
Weakness secondary to dehydration
Gastroenteritis
Hypokalemia
Hypomagnesemia
Acute kidney injury
Condition: Fair
Diet: Low Residue
Activity: With assistance and As tolerated
Driving Restrictions: Not until seen by your Dr
Activity Restrictions/Additional Instructions:
Follow-up with your oncologist.
recommended outpatient neuropsychological testing.
Encourage appropriate sleep/wake cycles; adequate daytime light exposure, minimize daytime napping, minimize nighttime awakenings.
Referrals:
Espinoza Kaplan I., DO [Family Provider] - in less than 1 week
Additional Discharge Medication Instructions: Tramadol and tizanidine was discontinued.
Prescriptions:
New
Lactobac/Bifidobac [Visbiome]
2 cap PO DAILY 10 Days Qty: 20 0RF
Mag Glycinate 100 mg tablet
100 mg PO DAILY Qty: 20 0RF
potassium chloride 20 mEq tablet extended release
20 meq PO DAILY 3 Days Qty: 3 0RF
Continued
labetalol 200 MG tablet
200 mg PO BID
omeprazole 20 MG tablet,delayed release (DR/EC)
20 mg PO DAILY
Eliquis 5 MG tablet
5 mg PO BID
loperamide 2 mg Capsule
2 mg PO Q8HPRN PRN (Reason: diarrhea)
venlafaxine 25 mg Tablet
50 mg PO BID
diltiazem HCl 120 mg Tablet
120 mg PO DAILY
pregabalin 50 mg Capsule
50 mg PO BID
lenalidomide [Revlimid] 5 mg Capsule
5 mg PO USEASDIRECTD
Rx Instructions:
1 cap for 21 days, then off x 7 days
levothyroxine [Synthroid] 100 mcg tablet
100 mcg PO DAILY
rosuvastatin 5 mg tablet
5 mg PO DAILY
levetiracetam [Keppra] 500 mg tablet
500 mg PO BID Qty: 60 0RF
cyanocobalamin (vitamin B-12) 1,000 mcg Tablet
1,000 mcg PO DAILY
oxycodone 5 mg Tablet
2.5 mg PO TIDPRN PRN (Reason: severe pain) 3 Days Qty: 6 0RF
Held
sulfamethoxazole-trimethoprim [Bactrim] 400-80 mg Tablet
1 tab PO DAILY
Hold Instructions: Resume on 03/28/24.
Patient Comments:
no pharmacy fills
Discontinued
tizanidine 2 mg Capsule
2 mg PO BIDPRN PRN (Reason: muscle spasms)
tramadol 50 mg tablet
25 mg PO Q8HPRN PRN (Reason: severe pain) Qty: 10 0RF
Discharge Orders:
Discharge Patient (As Directed); Ordered 03/24/24
Ordered By: Darrell Reilly
Discharge Date and Time
Print Language: ICELANDIC
[2024-03-24] MEDS: KCL 20 MEQ PO (10:33)
[2024-03-24 12:00] VITALS: BP 116/64
== END 2024-03-24 13:31 | DRG 92 ==
LOC: 2 NORTH 22:12
PROVIDERS: Nurse Practitioner; ADMITTING PHYSICIAN Hospitalist; ATTENDING PHYSICIAN Hospitalist; EMERGENCY PHYSICIAN Emergency Medicine; FAMILY PHYSICIAN Internal Medicine
DX: G92.8 Other toxic encephalopathy (principal); N17.9 Acute kidney failure, unspecified; N39.0 Urinary tract infection, site not specified; E87.6 Hypokalemia; E86.0 Dehydration; K52.9 Noninfective gastroenteritis and colitis, unspecified; E83.42 Hypomagnesemia; I48.0 Paroxysmal atrial fibrillation; I10 Essential (primary) hypertension; E03.9 Hypothyroidism, unspecified
CPT/HCPCS: 51701; 70450; 76700; 80048; 80053; 81003; 81015; 82248; 82607; 83690; 83735; 84439; 84443; 85025; 85027; 87045; 87046; 87077; 87086; 87324; 87427; 87449; 87798; 89055; 93005; 95816; 96361; 96374; 96375; 97162; 97166; 99285

== ENCOUNTER → 2024-03-25 09:44 | Outpatient (REF) | payer OTHER, MEDICARE, SELFPAY | LOC: OLABP 09:44 | PROVIDERS: ATTENDING PHYSICIAN Family Medicine | DX: R19.7 Diarrhea, unspecified (principal); G92.8 Other toxic encephalopathy; K52.9 Noninfective gastroenteritis and colitis, unspecified | CPT/HCPCS: 87324; 87449 ==

== ENCOUNTER → 2024-04-02 12:05 | Outpatient (REF) | payer OTHER, MEDICARE, SELFPAY ==
[2024-04-02 14:10] LABS: % Basophils 0.4 % (0-2); % Eosinophils 1.5 % (0-6); % Immature Granulocytes 0.4 % (0-0.5); % Lymphocytes 17.9 % (20.5-51.1); % Neutrophils 69.8 % (42.2-75.2); Absolute Eosinophils 0.1 10^3/uL (0-0.7); Absolute Lymphocytes 0.8 10^3/uL (1.2-3.4); Absolute Monocytes 0.5 10^3/uL (0.1-0.6); Absolute Neutrophils 3.3 10^3/uL (1.4-6.5); Hematocrit 29.8 % (37.0-47.0); Hemoglobin 9.3 g/dL (12.0-16.0); Mean Corp Hgb Conc. 31.2 g/dL (33.0-37.0); Mean Corpuscular Hgb 30.6 pg (27.0-31.0); Mean Platelet Volume 10.9 fL (7.4-10.4); Nucleated Red Blood Cells % 0 %; Platelet Count 208 10^3/uL (130-400); Red Blood Cell Count 3.04 10^6/uL (4.20-5.40); Red Cell Dist. Width 15.7 % (11.5-14.5); White Blood Cell Count 4.7 10^3/uL (4.8-10.8)
[2024-04-02 14:46] LABS: Blood Urea Nitrogen 25 mg/dl (7-17); Calcium 9.5 mg/dl (8.4-10.2); Carbon Dioxide 27 mmol/L (22-30); Chloride 105 mmol/L (98-107); Glucose 83 mg/dl (70-99); Magnesium 1.4 mg/dl (1.6-2.3); Potassium 3.8 mmol/L (3.5-5.1); Sodium 138 mmol/L (135-145); eGFR 57.31
== END ==
LOC: OLABP 12:05
PROVIDERS: ATTENDING PHYSICIAN Family Medicine
DX: G92.8 Other toxic encephalopathy (principal); E86.0 Dehydration; K52.9 Noninfective gastroenteritis and colitis, unspecified; E83.42 Hypomagnesemia; E87.6 Hypokalemia; I48.0 Paroxysmal atrial fibrillation; C90.00 Multiple myeloma not having achieved remission; Z86.73 Personal history of transient ischemic attack (TIA), and cerebral infarction without residual deficits; N18.30 Chronic kidney disease, stage 3 unspecified
CPT/HCPCS: 36415; 80048; 83735; 85025

== ENCOUNTER → 2024-04-15 10:10 | Outpatient (REF) | payer MEDICARE, OTHER, SELFPAY ==
[2024-04-15 11:44] LABS: % Basophils 0.2 % (0-2); % Eosinophils 4.1 % (0-6); % Immature Granulocytes 0.5 % (0-0.5); % Lymphocytes 13.9 % (20.5-51.1); % Monocytes 12.8 % (1.7-9.3); % Neutrophils 68.5 % (42.2-75.2); Absolute Eosinophils 0.2 10^3/uL (0-0.7); Absolute Lymphocytes 0.8 10^3/uL (1.2-3.4); Absolute Monocytes 0.7 10^3/uL (0.1-0.6); Absolute Neutrophils 3.9 10^3/uL (1.4-6.5); Hematocrit 30.9 % (37.0-47.0); Hemoglobin 9.8 g/dL (12.0-16.0); Mean Corp Hgb Conc. 31.7 g/dL (33.0-37.0); Mean Corpuscular Hgb 30.1 pg (27.0-31.0); Mean Corpuscular Volume 94.8 fL (81.0-99.0); Mean Platelet Volume 11.6 fL (7.4-10.4); Nucleated Red Blood Cells % 0 %; Platelet Count 158 10^3/uL (130-400); Red Blood Cell Count 3.26 10^6/uL (4.20-5.40); Red Cell Dist. Width 15.1 % (11.5-14.5); White Blood Cell Count 5.6 10^3/uL (4.8-10.8)
[2024-04-15 11:52] LABS: Blood Urea Nitrogen 20 mg/dl (7-17); Calcium 9.9 mg/dl (8.4-10.2); Carbon Dioxide 29 mmol/L (22-30); Chloride 103 mmol/L (98-107); Glucose 92 mg/dl (70-99); Magnesium 1.4 mg/dl (1.6-2.3); Potassium 3.8 mmol/L (3.5-5.1); Sodium 138 mmol/L (135-145); eGFR > 60.00
== END ==
LOC: CLAB 10:10
PROVIDERS: ATTENDING PHYSICIAN Internal Medicine
DX: G92.8 Other toxic encephalopathy (principal); C90.00 Multiple myeloma not having achieved remission
CPT/HCPCS: 36415; 80048; 83735; 85025

== ENCOUNTER → 2024-05-14 12:21 | Outpatient (REF) | payer MEDICARE, OTHER, SELFPAY ==
[2024-05-14 13:27] LABS: % Basophils 0.9 % (0-2); % Eosinophils 2.7 % (0-6); % Immature Granulocytes 0.4 % (0-0.5); % Lymphocytes 14.1 % (20.5-51.1); % Monocytes 7.3 % (1.7-9.3); % Neutrophils 74.6 % (42.2-75.2); Absolute Basophils 0.1 10^3/uL (0-0.2); Absolute Eosinophils 0.2 10^3/uL (0-0.7); Absolute Lymphocytes 0.8 10^3/uL (1.2-3.4); Absolute Monocytes 0.4 10^3/uL (0.1-0.6); Absolute Neutrophils 4.2 10^3/uL (1.4-6.5); Hematocrit 32.7 % (37.0-47.0); Hemoglobin 10.4 g/dL (12.0-16.0); Mean Corp Hgb Conc. 31.8 g/dL (33.0-37.0); Mean Corpuscular Hgb 29.2 pg (27.0-31.0); Mean Corpuscular Volume 91.9 fL (81.0-99.0); Mean Platelet Volume 10.1 fL (7.4-10.4); Nucleated Red Blood Cells % 0 %; Platelet Count 225 10^3/uL (130-400); Red Blood Cell Count 3.56 10^6/uL (4.20-5.40); Red Cell Dist. Width 15.3 % (11.5-14.5); White Blood Cell Count 5.6 10^3/uL (4.8-10.8)
[2024-05-14 13:54] LABS: ALT (SGPT) 19 U/L (0-35); AST (SGOT) 19 U/L (14-36); Albumin 3.7 g/dl (3.5-5.0); Alkaline Phosphatase 120 U/L (38-126); Blood Urea Nitrogen 25 mg/dl (7-17); Calcium 10.4 mg/dl (8.4-10.2); Carbon Dioxide 31 mmol/L (22-30); Chloride 100 mmol/L (98-107); Glucose 75 mg/dl (70-99); Potassium 4.1 mmol/L (3.5-5.1); Sodium 136 mmol/L (135-145); Total Bilirubin 0.5 mg/dl (0.2-1.3); Total Protein 6.7 g/dl (6.3-8.2); eGFR 51.11
[2024-05-14 14:24] LABS: TSH Reflex To Free T4 5.86 uIU/ml (0.47-4.68)
[2024-05-14 14:54] LABS: Free T4 1.41 ng/dl (0.78-2.19)
[2024-05-15 09:58] LABS: Intact PTH 87.7 pg/ml (13.6-85.8)
== END ==
LOC: REG 12:21
PROVIDERS: ATTENDING PHYSICIAN Internal Medicine
DX: I10 Essential (primary) hypertension (principal); N18.31 Chronic kidney disease, stage 3a; I12.9 Hypertensive chronic kidney disease with stage 1 through stage 4 chronic kidney disease, or unspecified chronic kidney disease; E83.52 Hypercalcemia
CPT/HCPCS: 36415; 80053; 83970; 84439; 84443; 85025

== ENCOUNTER → 2024-05-19 07:26 | Outpatient (REF) | payer MEDICARE, OTHER, SELFPAY ==
[2024-05-19 08:35] LABS: % Basophils 0.4 % (0-2); % Eosinophils 1.8 % (0-6); % Immature Granulocytes 0.3 % (0-0.5); % Lymphocytes 11.9 % (20.5-51.1); % Monocytes 4.9 % (1.7-9.3); % Neutrophils 80.7 % (42.2-75.2); Absolute Eosinophils 0.1 10^3/uL (0-0.7); Absolute Lymphocytes 0.9 10^3/uL (1.2-3.4); Absolute Monocytes 0.4 10^3/uL (0.1-0.6); Absolute Neutrophils 5.7 10^3/uL (1.4-6.5); Hemoglobin 10.9 g/dL (12.0-16.0); Mean Corp Hgb Conc. 31.1 g/dL (33.0-37.0); Mean Corpuscular Hgb 28.6 pg (27.0-31.0); Mean Corpuscular Volume 91.9 fL (81.0-99.0); Mean Platelet Volume 9.9 fL (7.4-10.4); Nucleated Red Blood Cells % 0 %; Platelet Count 228 10^3/uL (130-400); Red Blood Cell Count 3.81 10^6/uL (4.20-5.40); Red Cell Dist. Width 15.6 % (11.5-14.5); White Blood Cell Count 7.1 10^3/uL (4.8-10.8)
[2024-05-19 09:09] LABS: ALT (SGPT) 21 U/L (0-35); AST (SGOT) 23 U/L (14-36); Albumin 4.1 g/dl (3.5-5.0); Alkaline Phosphatase 121 U/L (38-126); Blood Urea Nitrogen 24 mg/dl (7-17); Calcium 10.6 mg/dl (8.4-10.2); Carbon Dioxide 30 mmol/L (22-30); Chloride 102 mmol/L (98-107); Glucose 85 mg/dl (70-99); HDL Cholesterol 83 mg/dl; LDL Cholesterol, Calculated 80 mg/dl; Potassium 4.6 mmol/L (3.5-5.1); Sodium 141 mmol/L (135-145); Total Bilirubin 0.4 mg/dl (0.2-1.3); Total Cholesterol 178 mg/dl (50-199); Total Protein 7.1 g/dl (6.3-8.2); Triglyceride 75 mg/dl (10-149); Very Low Density Lipoprotein 15 mg/dl (0-30); eGFR 46.05
[2024-05-19 09:28] LABS: TSH Reflex To Free T4 6.78 uIU/ml (0.47-4.68)
[2024-05-19 09:57] LABS: Free T4 1.18 ng/dl (0.78-2.19)
== END ==
LOC: REG 07:26
PROVIDERS: ATTENDING PHYSICIAN Internal Medicine; REFERRING PHYSICIAN Internal Medicine
DX: I10 Essential (primary) hypertension (principal); N18.31 Chronic kidney disease, stage 3a; I12.9 Hypertensive chronic kidney disease with stage 1 through stage 4 chronic kidney disease, or unspecified chronic kidney disease; E83.52 Hypercalcemia
CPT/HCPCS: 36415; 80053; 80061; 84439; 84443; 85025

== ENCOUNTER 2024-07-08 11:43 | Emergency (ER) | payer MEDICARE, OTHER, SELFPAY ==
[2024-07-08 11:51] VITALS: BP 120/52
[2024-07-08 12:00] VITALS: BP 113/57
[2024-07-08 13:05] LABS: % Basophils 0.4 % (0-2); % Eosinophils 4.7 % (0-6); % Immature Granulocytes 0.4 % (0-0.5); % Lymphocytes 15.4 % (20.5-51.1); % Monocytes 14.2 % (1.7-9.3); % Neutrophils 64.9 % (42.2-75.2); Absolute Eosinophils 0.2 10^3/uL (0-0.7); Absolute Lymphocytes 0.8 10^3/uL (1.2-3.4); Absolute Monocytes 0.7 10^3/uL (0.1-0.6); Absolute Neutrophils 3.2 10^3/uL (1.4-6.5); Hematocrit 31.9 % (37.0-47.0); Hemoglobin 10.1 g/dL (12.0-16.0); Mean Corp Hgb Conc. 31.7 g/dL (33.0-37.0); Mean Corpuscular Hgb 28.1 pg (27.0-31.0); Mean Corpuscular Volume 88.6 fL (81.0-99.0); Mean Platelet Volume 10.4 fL (7.4-10.4); Nucleated Red Blood Cells % 0 %; Platelet Count 158 10^3/uL (130-400); White Blood Cell Count 4.9 10^3/uL (4.8-10.8)
--- NOTE | 2024-07-08 13:31 | ED.GENMED ---
History of Present Illness
General
Chief Complaint: Blood Pressure Problem
Source: patient, family and career development associate
Exam Limitations: none
Time Seen by Provider: 07/08/24 12:36
Nursing documentation reviewed up to this point in time: agreed with
History of Present Illness
History of Present Illness:
78-year-old female presenting to the emergency department today with concerns of an episode where she felt lightheadedness when standing up checked her blood pressure was in the 90s over 50s and her pulse ox was briefly 84 but within a few minutes
improved without intervention to the mid 90s. She denies any symptoms at this point. No ongoing lightheadedness weakness or numbness. No headache no additional concerns no recent illnesses.
Past History
Past History
ED Past Medical History: Cancer, HTN and Hypercholesterolemia
ED Past Surgical History: Orthopedic
Social History
Tobacco: Non-smoker
Alcohol: Occasional
Drug: None
Personal:
Living: with family
Employment: Retired
Family History
Family History: Other
Review of Systems
Review of Systems
Allergies reviewed?: Yes
All Other Systems: ROS reviewed and negative except as documented in HPI and ROS
Phy Exam
Physical Exam
Physical Exam:
GENERAL: Alert , in no apparent distress
EYE: pupils equal and reactive
NECK: Supple, no significant adenopathy.
ENT: o/p clr, mmm.
CARDIAC: Regular rate and rhythm .
LUNGS: Clear breath sounds bilaterally, no acute respiratory distress, no wheezes/rales/rhonchi
ABDOMEN: Soft, without focal tenderness, no r/g, no cvat
NEUROLOGICAL: Alert and oriented, no focal neuro deficits
SKIN: Warm and dry, skin intact.
MUSCULOSKELETAL: No edema, well perfused.
PSYCH: Normal and appropriate interaction.
Course
Orders/Labs/Results
Orders:
Orders
07/08/24 11:56
Electrocardiogram (*1) Urgent
Reason for Study: Vertigo / Dizzy
EKG- Treatment ONCE
07/08/24 12:55
CBC/With Diff [Complete Blood Count/With Diff] Urgent
07/08/24 13:31
Basic Metabolic Panel Urgent
Abnormal Lab Results
07/08/24 07/08/24
12:55 13:31
RBC 3.60 L 10^6/uL
(4.20-5.40)
Hgb 10.1 L g/dL
(12.0-16.0)
Hct 31.9 L %
(37.0-47.0)
MCHC 31.7 L g/dL
(33.0-37.0)
RDW 16.0 H %
(11.5-14.5)
Absolute Lymphs (auto) 0.8 L 10^3/uL
(1.2-3.4)
Absolute Monos (auto) 0.7 H 10^3/uL
(0.1-0.6)
Lymphocytes % 15.4 L %
(20.5-51.1)
Monocytes % 14.2 H %
(1.7-9.3)
BUN 29 H mg/dl
(7-17)
07/08/24 12:55
07/08/24 13:31
Vital Signs
Initial and Last Documented VS:
Initial Vital Signs
Temp Pulse Resp BP Pulse Ox
98.7 F 70 18 120/52 96
07/08/24 11:51 07/08/24 11:51 07/08/24 11:51 07/08/24 11:51 07/08/24 11:51
Last Documented Vital Signs
Temp Pulse Resp BP Pulse Ox
98.7 F 58 16 122/77 98
07/08/24 11:51 07/08/24 14:00 07/08/24 14:00 07/08/24 14:00 07/08/24 14:00
MDM/Problems Addressed
MDM/Problems Addressed:
78-year-old female presenting to the emergency department today with concerns of a singular episode where her pulse ox was low and blood pressure was low prior to arrival. The pulse ox for a brief moment then improved without intervention. Same
with the blood pressure. Here blood pressures are normal. Patient no distress currently asymptomatic.
Labs without emergent findings stable for discharge at this time return precautions given.
*Critical Care Note
Total Time (30-74mins, 75-104mins- exclusive of procedures): Not Applicable
ED Attending Note
-
Portions of this chart may have been created with voice recognition software.� Occasional wrong word or��sound alike� substitutions may have occurred due to the inherent limitations of voice recognition software.
Discharge Plan
Departure
Patient Disposition: Home (Routine Discharge)
Date of Disposition: 07/08/24
Time of Disposition: 14:18
Patient with high blood pressure during this ER visit?: No
Condition: Good
Covid-19: Not Applicable
Discharge Problem:
Abnormal vital signs
Prescriptions:
No Action
labetalol 200 MG tablet
200 mg PO BID
omeprazole 20 MG tablet,delayed release (DR/EC)
20 mg PO DAILY
Eliquis 5 MG tablet
5 mg PO BID
loperamide 2 mg Capsule
2 mg PO Q8HPRN PRN (Reason: diarrhea)
sulfamethoxazole-trimethoprim [Bactrim] 400-80 mg Tablet
1 tab PO DAILY
Patient Comments:
no pharmacy fills
venlafaxine 25 mg Tablet
50 mg PO BID
diltiazem HCl 120 mg Tablet
120 mg PO DAILY
pregabalin 50 mg Capsule
50 mg PO BID
lenalidomide [Revlimid] 5 mg Capsule
5 mg PO USEASDIRECTD
Rx Instructions:
1 cap for 21 days, then off x 7 days
levothyroxine [Synthroid] 100 mcg tablet
100 mcg PO DAILY
rosuvastatin 5 mg tablet
5 mg PO DAILY
levetiracetam [Keppra] 500 mg tablet
500 mg PO BID Qty: 60 0RF
cyanocobalamin (vitamin B-12) 1,000 mcg Tablet
1,000 mcg PO DAILY
Lactobac/Bifidobac [Visbiome]
2 cap PO DAILY 10 Days Qty: 20 0RF
oxycodone 5 mg Tablet
2.5 mg PO TIDPRN PRN (Reason: severe pain) 3 Days Qty: 6 0RF
Mag Glycinate 100 mg tablet
100 mg PO DAILY Qty: 20 0RF
potassium chloride 20 mEq tablet extended release
20 meq PO DAILY 3 Days Qty: 3 0RF
Referrals:
Espinoza Kaplan I., [Family Provider] -
Activity Restrictions/Additional Instructions:
You came to the emergency department after episodic vital sign changes. Here you had a reassuring assessment. Please follow closely with your primary care doctor. Return for any worsening, new or concerning symptoms.
Interventions
Interventions:
*Risk Screen - Suicide Last Done: 07/08/24 11:51
*General Assessment Last Done: 07/08/24 11:51
*Neglect/Abuse Screening Last Done: 07/08/24 11:51
*ED- Fall Risk Assessment Last Done: 07/08/24 13:36
ED- Cardiac Assessment Last Done: 07/08/24 13:36
ED- Neurological Assessment Last Done: 07/08/24 13:36
ED- Pulmonary Assessment Last Done: 07/08/24 13:36
Discharge Date and Time
Print Language: ANGOLAN
[2024-07-08 14:00] VITALS: BP 122/77
[2024-07-08 14:06] LABS: Blood Urea Nitrogen 29 mg/dl (7-17); Calcium 9.7 mg/dl (8.4-10.2); Carbon Dioxide 30 mmol/L (22-30); Chloride 101 mmol/L (98-107); Glucose 89 mg/dl (70-99); Potassium 4.1 mmol/L (3.5-5.1); Sodium 136 mmol/L (135-145); eGFR 57.31
== END 2024-07-08 14:23 | disposition home or self-care (01) ==
LOC: EMR 11:43
PROVIDERS: Physician Assistant; EMERGENCY PHYSICIAN Emergency Medicine; FAMILY PHYSICIAN Internal Medicine
DX: R03.1 Nonspecific low blood-pressure reading (principal); E78.00 Pure hypercholesterolemia, unspecified; I10 Essential (primary) hypertension
CPT/HCPCS: 99284; 80048; 85025; 93005

== ENCOUNTER → 2024-09-14 11:41 | Outpatient (REF) | payer MEDICARE, OTHER, SELFPAY ==
[2024-09-14 12:47] LABS: Urine Albumin Negative (Neg - Trace); Urine Bilirubin Negative (Negative); Urine Character Slightly Cloudy (Clear); Urine Color Yellow; Urine Glucose Negative (Negative); Urine Ketone Negative (Negative); Urine Leukocyte 1+ (Negative); Urine Nitrite Negative (Negative); Urine Occult Blood 2+ (Negative); Urine Urobilinogen Negative (Neg - 1+)
[2024-09-14 15:21] LABS: Urine Amorphous Seen
[2024-09-14 15:22] LABS: Urine Bacteria Many (Negative)
== END ==
LOC: REG 11:41
PROVIDERS: ATTENDING PHYSICIAN Nurse Practitioner Gerontology; FAMILY PHYSICIAN Internal Medicine
DX: R30.0 Dysuria (principal)
CPT/HCPCS: 81003; 81015; 87086

== ENCOUNTER → 2025-01-05 11:09 | Outpatient (REF) | payer MEDICARE, OTHER, SELFPAY ==
--- NOTE | 2025-01-06 11:55 | EEG.RPT ---
Electroencephalogram Report
Recording
Date of EE01/05/25
Type of EEG: Routine
Length of EEG recordin minutes
Done with Video Recording: Yes
Patient Status: Outpatient
Recording Conditions: Awake and Drowsy
Hyperventilation Performed: No
Photic Stimulation Performed: Yes
Report
LESS THAN 1 HOUR EEG REPORT
LESS THAN 1 HOUR EEG INTERPRETATION:
Mildly to moderately abnormal study for age based on low amplitude and generalized slowing demonstrated bihemispherically equally, even for age.
CLINICAL CORRELATION:
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 No epileptiform features were
demonstrated.
If concerns remain regarding epilepsy, prolonged monitoring may be of assistance.
Clinical correlation is advised.
METHODS:
A 21-channel digital electroencephalogram (EEG) was performed at the bedside in the ICU. The 10/20 international system of electrode placement was used with ECG and lateral/vertical eye movements recorded. The [employer] quantitative EEG analysis
system was performed
IMPRESSION(S):
Quality of study
Fair
Background
Low amplitude
Anterior-posterior voltage gradient differentiation: Fair�poor
Theta frequency maximal background demonstrated, typically delta background
Sleep
Drowsiness present
Hyperventilation
Not performed
Photic Stimulation
Failed to activate the record
ECG
Normal rhythm
Abnormal Activity
None
== END ==
LOC: EEG 11:09
PROVIDERS: ATTENDING PHYSICIAN Psychiatry & Neurology Neurology; FAMILY PHYSICIAN Internal Medicine
DX: R41.3 Other amnesia (principal)
CPT/HCPCS: 95816

== ENCOUNTER → 2025-02-04 10:24 | Outpatient (REF) | payer MEDICARE, OTHER, SELFPAY | LOC: PAVMRI 10:24 | PROVIDERS: ATTENDING PHYSICIAN Psychiatry & Neurology Neurology; FAMILY PHYSICIAN Internal Medicine | DX: R41.3 Other amnesia (principal) | CPT/HCPCS: 70551 ==

== ENCOUNTER → 2025-03-14 15:09 | Outpatient (REF) | payer MEDICARE, OTHER, SELFPAY | LOC: PAVMRI 15:09 | PROVIDERS: ATTENDING PHYSICIAN Internal Medicine; FAMILY PHYSICIAN Internal Medicine | DX: C90.00 Multiple myeloma not having achieved remission (principal) | CPT/HCPCS: 72148 ==